=== PATIENT | female | born 1960 | race Caucasian/White ===

== ENCOUNTER → 2022-02-17 09:52 | Outpatient (BNVA) | payer MEDICAID, SELFPAY | PROVIDERS: PCP Family Medicine; Visit Provider Physician Assistant | DX: M06.9 Rheumatoid arthritis, unspecified (principal); M72.0 Palmar fascial fibromatosis [Dupuytren] | CPT/HCPCS: 99202 ==

== ENCOUNTER → 2022-03-04 09:23 | Outpatient (BNVA) | payer MEDICAID, SELFPAY | PROVIDERS: PCP Family Medicine; Visit Provider Orthopaedic Surgery | DX: M72.0 Palmar fascial fibromatosis [Dupuytren] (principal); M06.9 Rheumatoid arthritis, unspecified | CPT/HCPCS: 99202 ==

== ENCOUNTER 2024-06-01 08:33 | Outpatient (AMB) | payer OTHER, MEDICAID, SELFPAY ==
[2024-06-01 08:51] VITALS: BP 116/80; PULSE 62; O2SAT 96; BMI 27.9
--- NOTE | 2024-06-01 08:51 | MHC.PC.OV ---
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 Accompanied by: Self / Same As Patient Allergies carbamazepine Allergy (Severe, Verified 06/01/24 09:24) Hives meperidine [From DEMEROL] Allergy (Unknown, Verified 06/01/24 09:24) VOMITING Penicillins [PENICILLINS] Allergy (Unknown, Verified 06/01/24 09:24) SWELLING Sulfa (Sulfonamide Antibiotics) [SULFA (SULFONAMIDE ANTIBIOTICS)] Allergy (Unknown, Verified 06/01/24 09:24) HIVES varenicline [From CHANTIX] Allergy (Unknown, Verified 06/01/24 09:24) HEADACHES lisinopril Adverse Reaction (Mild, Verified 06/01/24 09:24) Cough Medication List - Last Reconciled 06/01/24 by Zane Michaels MD albuterol sulfate 90 mcg/actuation (ProAir HFA) 1 - 2 puffs inhalation Q4-6H PRN amlodipine 10 mg PO DAILY ascorbic acid (vitamin C) 500 mg PO DAILY aspirin 81 mg PO DAILY betamethasone valerate 0.1% 1 appl topical BID dihydroberberine (Berberine ES-5) 1,200 mg PO DAILY lorazepam 0.5 mg PO BID magnesium glycinate 120 mg PO DAILY metoprolol succinate ER 25 mg PO DAILY Tobacco use date assessed: 06/01/24 Dental Screening Dental Screen Date: 06/01/24 Did you have a dental visit in the last 12 months?: No Did you have a dental problem in the last 6 months where you did not have access to dental care?: No Was dental information given to patient?: No HPI establish care HPI Details Patient comes in today to establish care - she is a new patient to the practice She is transferring over from [facility] as her previous PCP, who she was with for many years, is no longer accepting her health insurance States that she currently feels okay and mainly needs her Lorazepam Rx refilled States that she has been on Lorazepam for many years and has a prescription management agreement with her previous PCP when she will get her Lorazepam prescription monthly and is subjected to random drug screens when requested for Adds that she has other medical conditions including COPD as well as a NSTEMI back in March 2024 although her coronary angiogram did not show any significant coronary disease other than a 30% stenosis of the mid-LAD She denies any headaches or dizziness Denies any chest pains, no increased shortness of breath No nausea/vomiting, no abdominal pain No change in bowel habits noted Patient also brought in copies of labs done at [facility] a couple of months ago for review [facility] Medical History (Updated 06/01/24 @ 20:32 by Zane Michaels MD) Overweight (BMI 25.0-29.9) Primary osteoarthritis involving multiple joints Rheumatoid arthritis Smoker Anxiety Pure hypercholesterolemia COPD (chronic obstructive pulmonary disease) Non-ST elevation (NSTEMI) myocardial infarction Essential hypertension Surgical History (Updated 06/01/24 @ 18:29 by Zane Michaels MD) History of superficial parotidectomy History of tubal ligation Social History Housing: House Patient Tobacco Use Status: Current everyday Tobacco user Cigarettes Per Day: 8 Years Smoked: 30+ e-Cigarette/Vaping Use: Never Used service: No Current occupational status: disabled Current occupation: right hand dominant Cognitive needs: No Hearing needs: No Vision needs: Yes Questionnaire PHQ-9 Over the last 2 weeks, how often have you been bothered by any of the following problems? 1. Little interest or pleasure in doing things: not at all 2. Feeling down, depressed, or hopeless: not at all 3. Trouble falling or staying asleep, or sleeping too much: not at all 4. Feeling tired or having little energy: not at all 5. Poor appetite or overeating: not at all 6. Feeling bad about yourself - or that you are a failure or have let yourself or your family down: not at all 7. Trouble concentrating on things, such as reading the newspaper or watching television: not at all 8. Moving or speaking so slowly that other people could have noticed. Or the opposite - being so fidgety or restless that you have been moving around a lot more than usual: not at all 9. Thoughts that you would be better off or of hurting yourself in some way: not at all Total score: 0 Depression Screening Interpretation: Negative Depression Screening Done: Yes 00222 - PHQ-9 Billing: Yes Source: Developed by Drs. Xu Garcia, Heather Riddle, Rio Sun and colleagues, with an educational anisa from [employer]. Thrive Questionnaire Date Thrive assessed: 06/01/24 I am a: Patient What is your living situation today?: I have a steady place to live Within the past 12 months, did the food you bought not last and you didn't have the money to get more?: Sometimes True Within the past 12 months, did you worry whether your food would run out before you got money to buy more?: Sometimes True Do you have trouble paying for medicines?: No Do you have trouble getting transportation to medical appointments?: No Do you have trouble paying your heating and electricity bill?: No Do you have trouble taking care of your child, family member or friend?: No Do you have trouble with day-to-day activities such as bathing, preparing meals, shopping, managing finances, etc.?: Yes Are you currently unemployed and looking for a job?: I choose not to answer this question Are you interested in more education?: No Please select the resources that you would like help with: None Currently or been in a relationship where the following occur: No concerns reported THRIVE Score: 2 AUDIT C Alcohol Use Questionnaire (AUDIT-C) 1. How often do you have a drink containing alcohol?: Never 3. How often do you have six or more drinks on one occasion?: Never Total Score: 0 Score Reviewed/Action Taken: Yes SUSANA-7 AMB Questionnaire SUSANA-7 Date SUSANA - 7 assessed: 06/01/24 Feeling nervous, anxious, or on edge: 1 = Several days Not being able to stop or control worryin = Not at all Worrying too much about different things: 0 = Not at all Trouble relaxin = Several days Being so restless that it is hard to sit still: 1 = Several days Becoming easily annoyed or irritable: 0 = Not at all Feeling afraid as if something awful might happen: 0 = Not at all Total SUSANA-7 score (0-4 normal; 5-9 mild; 10-14 moderate; 15-21 severe): 3 Source: Developed by Heather PatiñoW. Venkatesh, Rio Sun and colleagues, with an educational anisa from [employer]. Review of Systems Const Denies chills, Denies fatigue, Denies fever(s) and Denies headache(s) ENT Denies dysphagia, Denies dizziness, Denies otalgia, Denies headache(s), Denies neck pain, Denies odynophagia and Denies sore throat Card Denies chest pain, Denies palpitations and Denies dyspnea Resp Denies chest congestion, Denies cough and Denies dyspnea GI Denies abdominal pain, Denies constipation, Denies dysphagia, Denies heartburn, Denies diarrhea, Denies nausea, Denies odynophagia and Denies vomiting Denies difficulty voiding, Denies nocturia and Denies dysuria Musc Reports back pain (over the lower back), Reports arthralgias (involving multiple joints) and Denies neck pain Skin/Breast Denies rash Neuro Denies dizziness and Denies headache(s) Psych Reports anxiety Endo Denies fatigue and Denies palpitations Physical exam (Primary Care) Vital Signs: Last Vital Signs Pulse 62 06/01/24 08:51 BP 116/80 06/01/24 08:51 Pulse Ox 96 06/01/24 08:51 Oxygen Delivery Method Room Air 06/01/24 08:51 BMI result Body Mass Index 27.9 Tobacco/Smoking Status: Tobacco use Status Tobacco use date assessed 06/01/24 06/01/24 09:06 Patient Tobacco Use Status Current everyday Tobacco 06/01/24 09:06 e-Cigarette/Vaping Use Never Used 06/01/24 09:06 PHQ-9: PHQ-9 Score PHQ-9: Total score 0 06/01/24 09:37 Depression Screening Interpretation: Negative Thrive Assessment: Date of Thrive Assessment Date Thrive assessed 06/01/24 06/01/24 09:06 Currently or been in a relationship where the following occur: No concerns reported Const General: no acute distress and alert HENMT Ears: TM's normal bilaterally and EAC's normal Throat: Yes posterior oropharynx normal and Yes tonsils normal (no TP congestion) Neck Neck: Yes supple and No lymphadenopathy Thyroid: Thyroid normal Resp Auscultation: clear to auscultation bilaterally, no rales and no wheezes Cardio Rate: regular rate Rhythm: regular rhythm Heart sounds: no murmurs GI Palpation (GI): Soft to palpation and nontender Auscultation: normal bowel sounds General: Yes no CVA tenderness Back/Spine/Pelvis Back: no CVA tenderness Thoracic/Lumbar Spine: lumbar spinal tenderness Skin Rashes: no rashes Extrem General: Yes no clubbing, cyanosis or edema Coding Level of Care Code New Pt Level 4 (91417) Diagnoses Essential hypertension I10 Pure hypercholesterolemia E78.00 Non-ST elevation (NSTEMI) myocardial infarction I21.4 Chronic obstructive pulmonary disease, unspecified COPD type J44.9 COPD type: unspecified COPD Primary osteoarthritis involving multiple joints M15.0 Rheumatoid arthritis involving hand, unspecified laterality, unspecified whether rheumatoid factor present M06.9 Rheumatoid arthritis location: hand Rheumatoid factor presence: unspecified presence Laterality: unspecified laterality Anxiety F41.9 Smoker F17.200 Overweight (BMI 25.0-29.9) E66.3 Additional Codes PHQ-9 - 79606 - PHQ-9 Billing: Yes ([id number]) Assessment & Plan Assessment & Plan (1) Essential hypertension: Code(s): I10 - Essential (primary) hypertension Category: Medical Plan: Reinforced low sodium diet - goal is systolic BP of 120 to 130 mm or less Continue Amlodipine 10 mg QD and Metoprolol ER 25 mg QD (2) Pure hypercholesterolemia: Code(s): E78.00 - Pure hypercholesterolemia, unspecified Category: Medical Plan: Results of her labs done [facility] a couple of months ago reviewed and discussed with patient - she is advised that her cholesterol levels are elevated Patient states that has declined starting on cholesterol-lowering medications in the past and continues to do so - states that she has read a lot of negative things about the cholesterol-lowering medications and does not wish take any of those She is currently taking OTC Berberine ES 1200 mg daily to help lower her cholesterol levels Reinforced low-cholesterol diet Will recheck her labs and fasting lipids in 3 months for follow-up (3) Non-ST elevation (NSTEMI) myocardial infarction: Code(s): I21.4 - Non-ST elevation (NSTEMI) myocardial infarction Category: Medical Plan: S/P NSTEMI back in March 2024 but coronary angiography done revealed NO significant coronary artery disease except for 30% stenosis of the mid-LAD Continue Aspirin 81 mg QD and Metoprolol ER 25 mg QD Patient has declined being started on cholesterol-lowering medications Follow up with cardiology as scheduled - patient sees Dr. Fraser (4) COPD (chronic obstructive pulmonary disease): Code(s): J44.9 - Chronic obstructive pulmonary disease, unspecified Category: Medical Qualifiers: COPD type: unspecified COPD Qualified Code(s): J44.9 - Chronic obstructive pulmonary disease, unspecified Plan: Patient has Breo Ellipta 100-25 mcg at home but does not use it unless she has to States that she has only been using her Albuterol HFA 1 to 2 inhalations every 6 hours as needed or Duoneb via her nebulizer PRN lately She sees pulmonary for follow up of her COPD - it appears that she is only seeing them once a year (5) Primary osteoarthritis involving multiple joints: Code(s): M15.0 - Primary generalized (osteo)arthritis Category: Medical Plan: Patient reports that she has osteoarthritis of multiple joints, including her hips, knees and lower back States that she takes only OTC Tylenol nowadays when needed (6) Rheumatoid arthritis: Code(s): M06.9 - Rheumatoid arthritis, unspecified Category: Medical Qualifiers: Rheumatoid arthritis location: hand Rheumatoid factor presence: unspecified presence Laterality: unspecified laterality Qualified Code(s): M06.9 - Rheumatoid arthritis, unspecified Plan: She reports (+) Hx of rheumatoid arthritis and recalls being on treatment for her RA in the past but has not been on any medications for the past couple of years now States that she sees Dr. Patrick at [facility] for rheumatology follow up regularly (7) Anxiety: Code(s): F41.9 - Anxiety disorder, unspecified Category: Medical Plan: Continue Lorazepam 0.5 mg BID PRN - Rx refilled today Patient states that she has been splitting her tablets in half lately and takes them only as needed and not BID regularly lately (8) Smoker: Code(s): F17.200 - Nicotine dependence, unspecified, uncomplicated Category: Social Hx Plan: Patient is counseled on smoking cessation - states that she has been actively working on quitting since her MN back in March 2024 States that she used to smoke 1.5 packs a day and is now down to about 8 cigarettes a day (9) Overweight (BMI 25.0-29.9): Code(s): E66.3 - Overweight Category: Medical Plan: Reinforced diet; exercise and weight loss are not practical at this time due to her physical issues and comorbidities Plan Follow up in 3 months Orders: Orders Complete Blood Count Auto Diff 3 Months D64.9 - Anemia, unspecified Lipid Panel 3 Months E78.00 - Pure hypercholesterolemia, unspecified Vitamin D 25-OH Total 3 Months E55.9 - Vitamin D deficiency, unspecified Erythrocyte Sedimentation Rate 3 Months M06.9 - Rheumatoid arthritis, unspecified, M25.50 - Pain in unspecified joint SUZAN Reflex Titer and Pattern 3 Months M06.9 - Rheumatoid arthritis, unspecified, M25.50 - Pain in unspecified joint Comprehensive [place]. Panel Fast 3 Months E78.00 - Pure hypercholesterolemia, unspecified TSH reflex Free T4 3 Months E78.00 - Pure hypercholesterolemia, unspecified UA CC w/rflx Micro + Cult 3 Months R30.0 - Dysuria C Reactive Protein 3 Months M06.9 - Rheumatoid arthritis, unspecified, M25.50 - Pain in unspecified joint Rheumatoid Factor 3 Months M06.9 - Rheumatoid arthritis, unspecified, M25.50 - Pain in unspecified joint Medications: Changed From lorazepam 0.5 mg PO BID PRN To lorazepam 0.5 mg PO BID 28 days PRN 56 tabs 0RF anxiety
--- OUTSIDE RECORDS SUMMARY | 2024-06-01 09:01 | XMS_ITS | Data Portability ---
Author Organization [facility], [facility] Address [address] [place] [address] Care Team Providers Care Dampproofer Name Role Phone STONEY PENG OTHER [phone] MARCIAL NEWSOME Primary Care Provider [facility] YVONNE Braga [employer]yer PANFILO GROSS Vascular Surgeon ROCCO CARR Neurologist LUCILLE KRUSE Client Manager Assessment Encounter Date Assessment Date Assessment LastModified by Organization Details LastModified Time 02/04/2022 02/04/2022 RTC 11 mo for another VF/OCT plaquenil and and CEE 1 yr jmandile Not available 02/13/2022 20:43:07 01/13/2023 01/13/2023 RTC for cee jmandile Not available 16:06:44 01/15/2023 01/15/2023 RTC 11 mo for VF/OCT plaquenil and and CEE in 1 yr (No refraction today) jmandile Not available 02/12/2023 18:16:49 Plan of Treatment Reminders Order Date Submit Date Provider Last Modified By Organization Details Last Modified Time Details Appointments None recorded. Lab drug screen, urine - Time and Date of Last Dose: Lorazepam 0.5MG 03/02/23 @7:00Am 2022 023 [facility], [address] [place], [address], 10:14:01 benzodiazep kamala, quantitativ e confirmatio n, urine - Time and Date of Last Dose: Lorazepam 0.5MG 03/02/23 @7:00Am 2022 023 [facility], [address] [place] [address], [address], 3 17:28:07 drug screen, urine - Time and Date of Last Dose: 08/26/22 at 8:00am 2022 023 [facility], [address] [place] [address], [address], 3 16:31:10 benzodiazep kamala, quantitativ e confirmatio n, urine - Time and Date of Last Dose: 08/26/22 at 8:00am 2022 023 [facility], [address] [place] [address], [address], 3 11:07:55 lipid panel, serum 2022 023 [facility], [address] [place] [address], [address], 3 14:28:41 HbA1c (hemoglobin A1c), blood 2022 023 [facility], [address] [place] [address], [address], 3 10:31:52 BMP, serum or plasma 2022 023 [facility], [address] [place] [address], [address], 3 14:28:40 noninvasive colorectal cancer DNA + occult blood screening, QL, stool 2022 023 [facility] (Cologuard Orders Only), [address], [place], [address], 4 11:09:01 Referral None recorded. Procedures None recorded. Surgeries None recorded. Imaging MAMMO, screening, tomosynthes is, bilateral - 2nd look consult/Yvette g Mammo/US Breast/Guid ed Asp/Breast Bx as clinically indicated. 2022 023 [facility] (Imaging), [address] , [place], [address], 4 13:06:12 LDCT, chest, for lung cancer screening - Please enroll this patient in the LDCT Lung Cancer Screening Program (for ordering, follow up and shared decision making) 2022 023 [email or web address] [facility], [facility] [place], [address], 3 14:57:04 LDCT, chest, for lung cancer screening - current smoker, started age 18, smokes 1/2 ppd, 30+ pack year 2022 023 [email or web address] Not available 3 11:18:50 Medication Orders amlodipine 10 mg tablet 2022 023 [place] [address] [facility], [address] [facility], [place], [address], 4 08:41:00 Patient TargetsNo targets recorded. Patient Instructions Encounter Date Encounter Id Patient Instructions Last Modified By Organization Details Last Modified Time 08/26/2022 [id number] well visit, wome n 50 to 65: care instructions Not available 08/26/2022 11:02:31 deciding about using medicines to quit smoking Not available 08/26/2022 11:02:31 Quitting Tobacco : Care Instructions Not available 08/26/2022 11:02:31 -Shingrix is two vaccines by 2-6 months -It is given at the pharmacy; please go there to receive it - check with the pharmacy about getting the second -Once you have both you are done (it is 90% effective) -The most common side effect is arm redness around the injection site and arm soreness. -You are due for your tetanus shot Not available 08/26/2022 10:26:55 03/02/2023 [id number] -Mindful eating -Repeat labwork in 3 months with follow-up then -Get a list of insurances you can have and check with billing to see if they match -Lung Cancer Screening - you should get a call -Cologuard or colonoscopy - we need a test to actually look for cancer directly, not a stool test for blood Not available 03/02/2023 09:03:23 Reason for Referral None Reported. Results Created Date Observation Date Name Description Value Unit Range Abnormal Flag Note LastModifiedBy Organization Detail LastModifiedTime 08/26/19 24 08/26/2023 COLOG UARD cologuard result Cancel led - Order d not applic able Not Available [facility] (Cologuard Orders Only) [address], [place], [address], 08/26/2023 11:09:01 02/07/20 22 02/06/2022 CBC AND DIFFE RENTI AL WBC 7.40 K/uL 4.00-1 1.00 Not Available [facility] (Outpatient) [address] [place] [address], [address], 02/06/2022 15:51:56 02/07/20 22 02/06/2022 CBC AND DIFFE RENTI AL RBC 4.28 M/uL 3.72-5 .30 Not Available [facility] (Outpatient) [address] [place] [address], [address], 02/06/2022 15:51:56 02/07/20 22 02/06/2022 CBC AND DIFFE RENTI AL HGB 13.2 g/dL 11.4-1 5.9 Not Available [facility] (Outpatient) [address] [place] [address], [address], 02/06/2022 15:51:56 02/07/20 22 02/06/2022 CBC AND DIFFE RENTI AL HCT 39.4 % 34.2-4 6.8 Not Available [facility] (Outpatient) [address] [place] [address], [address], 02/06/2022 15:51:56 02/07/20 22 02/06/2022 CBC AND DIFFE RENTI AL plt 186 K/uL 140-43 0 Not Available [facility] (Outpatient) [address] [place], [address], 02/06/2022 15:51:56 02/07/20 22 02/06/2022 CBC AND DIFFE RENTI AL MCV 92.1 fL 78.0-9 7.0 Not Available [facility] (Outpatient) [address] [place], [address], 02/06/2022 15:51:56 02/07/20 22 02/06/2022 CBC AND DIFFE RENTI AL MCH 30.8 pg 25.0-3 3.0 Not Available [facility] (Outpatient) [address] [place] [address], [address], 02/06/2022 15:51:56 02/07/20 22 02/06/2022 CBC AND DIFFE RENTI AL MCHC 33.5 g/dL 32.0-3 6.0 Not Available [facility] (Outpatient) [address] [place] [address], [address], 02/06/2022 15:51:56 02/07/20 22 02/06/2022 CBC AND DIFFE RENTI AL RDW 13.2 % 11.0-1 6.0 Not Available [facility] (Outpatient) [address] [place] [address], [address], 02/06/2022 15:51:56 02/07/20 22 02/06/2022 CBC AND DIFFE RENTI AL MPV 11.8 fL 8.4-12 .8 Not Available [facility] (Outpatient) [address] [place] [address], [address], 02/06/2022 15:51:56 02/07/20 22 02/06/2022 CBC AND DIFFE RENTI AL diff method Auto Not Available [facility] (Outpatient) [address] [place], [address], 02/06/2022 15:51:56 02/07/20 22 02/06/2022 CBC AND DIFFE RENTI AL neuts 62.7 % 43.0-7 5.0 Not Available [facility] (Outpatient) [address] [place], [address], 02/06/2022 15:51:56 02/07/20 22 02/06/2022 CBC AND DIFFE RENTI AL lymphs 26.1 % 18.2-4 7.4 Not Available [facility] (Outpatient) [address] [place], [address], 02/06/2022 15:51:56 02/07/20 22 02/06/2022 CBC AND DIFFE RENTI AL monos 7.7 % 4.00-1 1.00 Not Available [facility] (Outpatient) [address] [place], [address], 02/06/2022 15:51:56 02/07/20 22 02/06/2022 CBC AND DIFFE RENTI AL eos 2.0 % 0.0-8. 0 Not Available [facility] (Outpatient) [address] [place], [address], 02/06/2022 15:51:56 02/07/20 22 02/06/2022 CBC AND DIFFE RENTI AL basos 0.8 % 0.0-2. 0 Not Available [facility] (Outpatient) [address] [place], [address], 02/06/2022 15:51:56 02/07/20 22 02/06/2022 CBC AND DIFFE RENTI AL granulocytes , immature (%) 0.7 % 0.0-0. 9 Not Available [facility] (Outpatient) [address] [place], [address], 02/06/2022 15:51:56 02/07/20 22 02/06/2022 CBC AND DIFFE RENTI AL absolute neuts 4.64 K/uL 1.80-7 .70 Not Available [facility] (Outpatient) [address] [place], [address], 02/06/2022 15:51:56 02/07/20 22 02/06/2022 CBC AND DIFFE RENTI AL absolute lymphs 1.93 K/uL 1.00-3 .10 Not Available [facility] (Outpatient) [address] [place], [address], 02/06/2022 15:51:56 02/07/20 22 02/06/2022 CBC AND DIFFE RENTI AL absolute monos 0.57 K/uL 0.20-0 .80 Not Available [facility] (Outpatient) [address] [place], [address], 02/06/2022 15:51:56 02/07/20 22 02/06/2022 CBC AND DIFFE RENTI AL absolute eos 0.15 K/uL 0.00-0 .80 Not Available [facility] (Outpatient) [address] [place], [address], 02/06/2022 15:51:56 02/07/20 22 02/06/2022 CBC AND DIFFE RENTI AL absolute basos 0.06 K/uL 0.00-0 .09 Not Available [facility] (Outpatient) [address] [place], [address], 02/06/2022 15:51:56 02/07/20 22 02/06/2022 CBC AND DIFFE RENTI AL granulocytes , immature 0.05 K/uL 0.00-0 .05 Not Available [facility] (Outpatient) [address] [place], [address], 02/06/2022 15:51:56 02/07/20 22 02/06/2022 COMPR EHENS RIA METAB OLIC PANEL sodium 141 mmol/ L 133-14 6 Not Available [facility] (Outpatient) [address] [place], [address], 02/06/2022 16:18:42 02/07/20 22 02/06/2022 COMPR EHENS RIA METAB OLIC PANEL potassium 4.2 mmol/ L 3.3-5. 1 Not Available [facility] (Outpatient) [address] [place], [address], 02/06/2022 16:18:42 02/07/20 22 02/06/2022 COMPR EHENS RIA METAB OLIC PANEL chloride 103 mmol/ L 96-108 Not Available [facility] (Outpatient) [address] [place], [address], 02/06/2022 16:18:42 02/07/20 22 02/06/2022 COMPR EHENS RIA METAB OLIC PANEL CO2 29 mmol/ L 21-35 Not Available [facility] (Outpatient) [address] [place], [address], 02/06/2022 16:18:42 02/07/20 22 02/06/2022 COMPR EHENS RIA METAB OLIC PANEL BUN 12 mg/dL 6-19 Not Available [facility] (Outpatient) [address] [place], [address], 02/06/2022 16:18:42 02/07/20 22 02/06/2022 COMPR EHENS RIA METAB OLIC PANEL creatinine 0.60 mg/dL 0.5-1. 5 Not Available [facility] (Outpatient) [address] [place], [address], 02/06/2022 16:18:42 02/07/20 22 02/06/2022 COMPR EHENS RIA METAB OLIC PANEL glucose 111 mg/dL 70-99 high Not Available [facility] (Outpatient) [address] [place], [address], 02/06/2022 16:18:42 02/07/20 22 02/06/2022 COMPR EHENS RIA METAB OLIC PANEL albumin 4.0 g/dL 3.9-4. 8 Not Available [facility] (Outpatient) [address] [place], [address], 02/06/2022 16:18:42 02/07/20 22 02/06/2022 COMPR EHENS RIA METAB OLIC PANEL total protein 6.8 g/dL 6.5-8. 0 Not Available [facility] (Outpatient) [address] [place], [address], 02/06/2022 16:18:42 02/07/20 22 02/06/2022 COMPR EHENS RIA METAB OLIC PANEL calcium 9.3 mg/dL 8.4-10 .3 Not Available [facility] (Outpatient) [address] [place], [address], 02/06/2022 16:18:42 02/07/20 22 02/06/2022 COMPR EHENS RIA METAB OLIC PANEL alkaline phosphatase 68 U/L 39-117 Not Available [facility] (Outpatient) [address] [place], [address], 02/06/2022 16:18:42 02/07/20 22 02/06/2022 COMPR EHENS RIA METAB OLIC PANEL total bilirubin 0.2 mg/dL 0.0-1. 2 Not Available [facility] (Outpatient) [address] [place], [address], 02/06/2022 16:18:42 02/07/20 22 02/06/2022 COMPR EHENS RIA METAB OLIC PANEL AST 23 U/L 0-37 Not Available [facility] (Outpatient) [address] [place], [address], 02/06/2022 16:18:42 02/07/20 22 02/06/2022 COMPR EHENS RIA METAB OLIC PANEL ALT 14 U/L 0-40 Not Available [facility] (Outpatient) [address] [place], [address], 02/06/2022 16:18:42 02/07/20 22 02/06/2022 COMPR EHENS RIA METAB OLIC PANEL globulin 2.8 g/dL 1-4.8 Not Available [facility] (Outpatient) [address] [place], [address], 02/06/2022 16:18:42 02/07/20 22 02/06/2022 COMPR EHENS RIA METAB OLIC PANEL eGFR 103 mL/mi n/1.7 3m2 >59 Estim ated glome rular filtr ation rate calcu lated using the CKD-E PI refit equat ion. Not Available [facility] (Outpatient) [address] [place], [address], 02/06/2022 16:18:42 02/07/20 22 02/06/2022 COMPR EHENS RIA METAB OLIC PANEL anion gap 13 mmol/ L 10-20 Not Available [facility] (Outpatient) [address] [place], [address], 02/06/2022 16:18:42 02/07/20 22 02/06/2022 C-REMY CTIVE PROTE IN C reactive protein 3.5 mg/L 0.0-4. 0 Not Available [facility] (Outpatient) [address] [place], [address], 02/06/2022 16:18:44 02/07/20 22 02/06/2022 SEDIM ENTAT ION RATE (ESR) ESR 30 mm/h 0-30 Not Available [facility] (Outpatient) [address] [place], [address], 02/06/2022 17:07:03 08/21/19 23 08/20/2022 HGB A1C hemoglobin A1C 5.9 % 4.8-6. 0 Goal: <7% in Patie nts with Diabe katie An A1c betwe en 5.7-6 .4% is ident ified as pre-d iabet es and sugge sts risk for progr essio n to diabe katie Two a1c value s of 6.5% or highe r is consi stent with a diagn osis of diabe katie but may need furth er confi rmati on Not Available [address], [address], 08/20/2022 09:18:03 08/21/19 23 08/20/2022 HGB A1C estimated average glucose 122.6 mg/dL Not Available [address], [address], 08/20/2022 09:18:03 08/21/19 23 08/20/2022 BASIC METAB OLIC PANEL glucose 96 mg/dL 70-100 Not Available [address], [address], 08/20/2022 10:30:51 08/21/19 23 08/20/2022 BASIC METAB OLIC PANEL BUN 8 mg/dL 7-18 Not Available [address], [address], 08/20/2022 10:30:51 08/21/19 23 08/20/2022 BASIC METAB OLIC PANEL creatinine 0.7 mg/dL 0.8-1. 3 low Not Available [address], [address], 08/20/2022 10:30:51 08/21/19 23 08/20/2022 BASIC METAB OLIC PANEL B/C 11.4 ratio Not Available [address], [address], 08/20/2022 10:30:51 08/21/19 23 08/20/2022 BASIC METAB OLIC PANEL GFR >=60ML /MIN mL/mi n normal >=60m L/min - Pamela l or midly reduc ed <60mL /min- Decre ased kidne y funct ion <15mL /min - Kidne y failu re [facility] calcu lates estim ated Glome rular Filtr ation Rate (eGFR ) using the Chron ic Kidne y Disea se Epide miolo gy Colla borat ion (CKD- EPI) Equat ion (Carlos r et. al 2020) as recom tristin d by the Natio nal Kidne y Found ation . eGFR is based on age, serum creat inine , and sex. CKD-E PI does not calcu late eGFR by race, does not apply to child aris (age <18 years ), and shoul d not be used in pregn rodrigue. Not Available [address], [address], 08/20/2022 10:30:51 08/21/19 23 08/20/2022 BASIC METAB OLIC PANEL sodium 139 mmol/ L 136-14 5 Not Available [address], [address], 08/20/2022 10:30:51 08/21/19 23 08/20/2022 BASIC METAB OLIC PANEL potassium 4.4 mmol/ L 3.5-5. 1 Not Available [address], [address], 08/20/2022 10:30:51 08/21/19 23 08/20/2022 BASIC METAB OLIC PANEL chloride 101 mmol/ L 96-107 Not Available [address], [address], 08/20/2022 10:30:51 08/21/19 23 08/20/2022 BASIC METAB OLIC PANEL anion gap 6.2 5.0-15 .0 Not Available [address], [address], 08/20/2022 10:30:51 08/21/19 23 08/20/2022 BASIC METAB OLIC PANEL CO2 32 mmol/ L 21-32 Not Available [address], [address], 08/20/2022 10:30:51 08/21/19 23 08/20/2022 BASIC METAB OLIC PANEL calcium 9.0 mg/dL 8.5-10 .3 Not Available [address], [address], 08/20/2022 10:30:51 08/21/19 23 08/20/2022 LIPID PANEL cholesterol 205 mg/dL <200 mg/dl Heladio able 200-2 39 mg/dl Borde rline High >240 mg/dl High Not Available [address], [address], 08/20/2022 10:30:53 08/21/19 23 08/20/2022 LIPID PANEL triglyceride s 132 mg/dL <150 mg/dL Pamela l 150-1 99 mg/dL Borde rline High 200-4 99 mg/dL High >500 mg/dL Very High Not Available [address], [address], 08/20/2022 10:30:53 08/21/19 23 08/20/2022 LIPID PANEL direct HDL 47 mg/dL <40 mg/dl - Major Risk for CHD >60 mg/dl - Negat ria Risk for CHD Not Available [address], [address], 08/20/2022 10:30:53 08/21/19 23 08/20/2022 LDL - CALCU LATED LDL - calculated 131.6 RISK CATEG ORY LDL GOAL _ CHD or CHD Risk Equiv alent s <100 mg/dl (10-y ear risk >20%) 2+ Risk Facto rs <130 mg/dl (10-y ear risk <= 20%) 0-1 Risk Facto r??? <160 mg/dl ??? Almos t all peopl e with 0-1 risk facto r have a 10 year risk <10%, thus 10 year risk asses ment in peopl e with 0-1 risk facto r is not yanelis medina. Not Available [address], [address], 08/20/2022 10:30:55 08/27/19 23 08/27/2022 DRUG SCREE N-8, URINE , WITH CONFI RMATI ON GC/MS amphetamine NEG. negati ve Not Available [address], [address], 08/27/2022 16:31:10 08/27/19 23 08/27/2022 DRUG SCREE N-8, URINE , WITH CONFI RMATI ON GC/MS barbiturates NEG. negati ve Not Available [address], [address], 08/27/2022 16:31:10 08/27/19 23 08/27/2022 DRUG SCREE N-8, URINE , WITH CONFI RMATI ON GC/MS benzodiazepi ne NEG. negati ve Not Available [address], [address], 08/27/2022 16:31:10 08/27/19 23 08/27/2022 DRUG SCREE N-8, URINE , WITH CONFI RMATI ON GC/MS cocaine NEG. negati ve Not Available [address], [address], 08/27/2022 16:31:10 08/27/19 23 08/27/2022 DRUG SCREE N-8, URINE , WITH CONFI RMATI ON GC/MS opiates NEG. negati ve Not Available [address], [address], 08/27/2022 16:31:10 08/27/19 23 08/27/2022 DRUG SCREE N-8, URINE , WITH CONFI RMATI ON GC/MS methadone NEG. negati ve Not Available [address], [address], 08/27/2022 16:31:10 08/27/19 23 08/27/2022 DRUG SCREE N-8, URINE , WITH CONFI RMATI ON GC/MS fentanyl NEG. negati ve Syva EMIT II Limit s of Detec tion (cutt -off value s) Trey Expan d: Amphe tamin es: 1000 ng/ml Opiat es: 300 ng/ml Molly tuate s: 200 ng/ml Oxyco done 100 ng/ml Benzo diaze pines : 200 ng/ml Metha done 300 ng/ml Cocai ne: 300 ng/ml Fenta nyl 1 ng/ml Not Available [address], [address], 08/27/2022 16:31:10 08/27/19 23 08/27/2022 DRUG SCREE N-8, URINE , WITH CONFI RMATI ON GC/MS oxycodone NEG. negati ve Not Available [address], [address], 08/27/2022 16:31:10 08/27/19 23 08/30/2022 DRUG TOX MONIT ORING BENZO DIAZE PINES , QN, U alphahydroxy alprazolam NEGATI VE NG/mL <25 See Note 1 Not Available [facility] [address], [address], 08/30/2022 11:07:55 08/27/19 23 08/30/2022 DRUG TOX MONIT ORING BENZO DIAZE PINES , QN, U alphahydroxy midazolam NEGATI VE NG/mL <50 See Note 1 Not Available [facility] [address], [address], 08/30/2022 11:07:55 08/27/19 23 08/30/2022 DRUG TOX MONIT ORING BENZO DIAZE PINES , QN, U alphahydroxy triazolam NEGATI VE NG/mL <50 See Note 1 Not Available [facility] [address], [place], [address], 08/30/2022 11:07:55 08/27/19 23 08/30/2022 DRUG TOX MONIT ORING BENZO DIAZE PINES , QN, U aminoclonaze serena NEGATI VE NG/mL <25 See Note 1 Not Available [facility] [address], [place], [address], 08/30/2022 11:07:55 08/27/19 23 08/30/2022 DRUG TOX MONIT ORING BENZO DIAZE PINES , QN, U hydroxyethyl flurazepam NEGATI VE NG/mL <50 See Note 1 Not Available [facility] [address], [place], [address], 08/30/2022 11:07:55 08/27/19 23 08/30/2022 DRUG TOX MONIT ORING BENZO DIAZE PINES , QN, U lorazepam 98 NG/mL <50 high See Note 1 Not Available [facility] [address], [place], [address], 08/30/2022 11:07:55 08/27/19 23 08/30/2022 DRUG TOX MONIT ORING BENZO DIAZE PINES , QN, U nordiazepam NEGATI VE NG/mL <50 See Note 1 Not Available [facility] [address], [place], [address], 08/30/2022 11:07:55 08/27/19 23 08/30/2022 DRUG TOX MONIT ORING BENZO DIAZE PINES , QN, U oxazepam NEGATI VE NG/mL <50 See Note 1 Not Available [facility] [address], [place], [address], 08/30/2022 11:07:55 08/27/19 23 08/30/2022 DRUG TOX MONIT ORING BENZO DIAZE PINES , QN, U temazepam NEGATI VE NG/mL <50 See Note 1 Not Available [facility] [address], [place], [address], 08/30/2022 11:07:55 08/27/19 23 08/30/2022 DRUG TOX MONIT ORING BENZO DIAZE PINES , QN, U Unknown Analyte See Note 2 Note 1 This test was devel oped and its jonn tical perfo rmanc e milka cteri stics have been deter mined by [facility]. It has not been clear ed or appro shaun by the FDA. This assay has been valid ated pursu ant to the CLIA regul ation s and is used for clini ashley purpo ses. Note 2 This drug testi ng is for medic al treat ment only. Jonn sis was perfo rmed as non-f orens ic testi ng and these resul ts shoul d be used only by [facility] to rende r diagn osis or treat ment, or to monit or progr ess of medic al condi tions . For sundeepluke weaver with inter preti ng these drug resul ts, pleas e conta ct a [facility] Toxic ology Speci alist : 1-877 [phone] X TOX ( [phone] ), M-F, 8am-6 pm EST. Not Available [facility] [address], [place], [address], 08/30/2022 11:07:55 10/10/19 23 10/09/2022 CBC AND DIFFE RENTI AL WBC 8.46 K/uL 4.00-1 1.00 Not Available [facility] (Outpatient) [address] [place] [address], [address], 10/09/2022 15:48:23 10/10/19 23 10/09/2022 CBC AND DIFFE RENTI AL RBC 4.44 M/uL 3.72-5 .30 Not Available [facility] (Outpatient) [address] [place], [address], 10/09/2022 15:48:23 10/10/19 23 10/09/2022 CBC AND DIFFE RENTI AL HGB 13.0 g/dL 11.4-1 5.9 Not Available [facility] (Outpatient) [address] [place], [address], 10/09/2022 15:48:23 10/10/19 23 10/09/2022 CBC AND DIFFE RENTI AL HCT 39.4 % 34.2-4 6.8 Not Available [facility] (Outpatient) [address] [place], [address], 10/09/2022 15:48:23 10/10/19 23 10/09/2022 CBC AND DIFFE RENTI AL plt 188 K/uL 140-43 0 Not Available [facility] (Outpatient) [address] [place], [address], 10/09/2022 15:48:23 10/10/19 23 10/09/2022 CBC AND DIFFE RENTI AL MCV 88.7 fL 78.0-9 7.0 Not Available [facility] (Outpatient) [address] [place], [address], 10/09/2022 15:48:23 10/10/19 23 10/09/2022 CBC AND DIFFE RENTI AL MCH 29.3 pg 25.0-3 3.0 Not Available [facility] (Outpatient) [address] [place], [address], 10/09/2022 15:48:23 10/10/19 23 10/09/2022 CBC AND DIFFE RENTI AL MCHC 33.0 g/dL 32.0-3 6.0 Not Available [facility] (Outpatient) [address] [place], [address], 10/09/2022 15:48:23 10/10/19 23 10/09/2022 CBC AND DIFFE RENTI AL RDW 13.4 % 11.0-1 6.0 Not Available [facility] (Outpatient) [address] [place], [address], 10/09/2022 15:48:23 10/10/19 23 10/09/2022 CBC AND DIFFE RENTI AL MPV 11.7 fL 8.4-12 .8 Not Available [facility] (Outpatient) [address] [place], [address], 10/09/2022 15:48:23 10/10/19 23 10/09/2022 CBC AND DIFFE RENTI AL diff method Auto Not Available [facility] (Outpatient) [address] [place], [address], 10/09/2022 15:48:23 10/10/19 23 10/09/2022 CBC AND DIFFE RENTI AL neuts 59.6 % 43.0-7 5.0 Not Available [facility] (Outpatient) [address] [place], [address], 10/09/2022 15:48:23 10/10/19 23 10/09/2022 CBC AND DIFFE RENTI AL lymphs 27.3 % 18.2-4 7.4 Not Available [facility] (Outpatient) [address] [place], [address], 10/09/2022 15:48:23 10/10/19 23 10/09/2022 CBC AND DIFFE RENTI AL monos 9.9 % 4.00-1 1.00 Not Available [facility] (Outpatient) [address] [place], [address], 10/09/2022 15:48:23 10/10/19 23 10/09/2022 CBC AND DIFFE RENTI AL eos 2.0 % 0.0-8. 0 Not Available [facility] (Outpatient) [address] [place], [address], 10/09/2022 15:48:23 10/10/19 23 10/09/2022 CBC AND DIFFE RENTI AL basos 0.7 % 0.0-2. 0 Not Available [facility] (Outpatient) [address] [place], [address], 10/09/2022 15:48:23 10/10/1910/09/2022 CBC AND DIFFE RENTI AL granulocytes , immature (%) 0.5 % 0.0-0. 9 Not Available [facility] (Outpatient) [address] [place], [address], 10/09/2022 15:48:23 10/10/19 23 10/09/2022 CBC AND DIFFE RENTI AL absolute neuts 5.04 K/uL 1.80-7 .70 Not Available [facility] (Outpatient) [address] [place], [address], 10/09/2022 15:48:23 10/10/1910/09/2022 CBC AND DIFFE RENTI AL absolute lymphs 2.31 K/uL 1.00-3 .10 Not Available [facility] (Outpatient) [address] [place], [address], 10/09/2022 15:48:23 10/10/19 23 10/09/2022 CBC AND DIFFE RENTI AL absolute monos 0.84 K/uL 0.20-0 .80 high Not Available [facility] (Outpatient) [address] [place], [address], 10/09/2022 15:48:23 10/10/19 23 10/09/2022 CBC AND DIFFE RENTI AL absolute eos 0.17 K/uL 0.00-0 .80 Not Available [facility] (Outpatient) [address] [place], [address], 10/09/2022 15:48:23 10/10/19 23 10/09/2022 CBC AND DIFFE RENTI AL absolute basos 0.06 K/uL 0.00-0 .09 Not Available [facility] (Outpatient) [address] [place], [address], 10/09/2022 15:48:23 10/10/19 23 10/09/2022 CBC AND DIFFE RENTI AL granulocytes , immature 0.04 K/uL 0.00-0 .05 Not Available [facility] (Outpatient) [address] [place], [address], 10/09/2022 15:48:23 10/10/19 23 10/09/2022 SEDIM ENTAT ION RATE (ESR) ESR 44 mm/h 0-30 high Not Available [facility] (Outpatient) [address] [place], [address], 10/09/2022 18:55:48 10/10/19 23 10/09/2022 COMPR EHENS RIA METAB OLIC PANEL sodium 136 mmol/ L 133-14 6 Not Available [facility] (Outpatient) [address] [place], [address], 10/09/2022 19:13:40 10/10/19 23 10/09/2022 COMPR EHENS RIA METAB OLIC PANEL potassium 4.4 mmol/ L 3.3-5. 1 Not Available [facility] (Outpatient) [address] [place], [address], 10/09/2022 19:13:40 10/10/19 23 10/09/2022 COMPR EHENS RIA METAB OLIC PANEL chloride 98 mmol/ L 96-108 Not Available [facility] (Outpatient) [address] [place], [address], 10/09/2022 19:13:40 10/10/19 23 10/09/2022 COMPR EHENS RIA METAB OLIC PANEL CO2 29 mmol/ L 21-35 Not Available [facility] (Outpatient) [address] [place], [address], 10/09/2022 19:13:40 10/10/19 23 10/09/2022 COMPR EHENS RIA METAB OLIC PANEL BUN 10 mg/dL 6-19 Not Available [facility] (Outpatient) [address] [place], [address], 10/09/2022 19:13:40 10/10/19 23 10/09/2022 COMPR EHENS RIA METAB OLIC PANEL creatinine 0.60 mg/dL 0.5-1. 5 Not Available [facility] (Outpatient) [address] [place], [address], 10/09/2022 19:13:40 10/10/19 23 10/09/2022 COMPR EHENS RIA METAB OLIC PANEL glucose 95 mg/dL 70-99 Not Available [facility] (Outpatient) [address] [place], [address], 10/09/2022 19:13:40 10/10/19 23 10/09/2022 COMPR EHENS RIA METAB OLIC PANEL albumin 3.9 g/dL 3.9-4. 8 Not Available [facility] (Outpatient) [address] [place], [address], 10/09/2022 19:13:40 10/10/19 23 10/09/2022 COMPR EHENS RIA METAB OLIC PANEL total protein 7.1 g/dL 6.5-8. 0 Not Available [facility] (Outpatient) [address] [place], [address], 10/09/2022 19:13:40 10/10/19 23 10/09/2022 COMPR EHENS RIA METAB OLIC PANEL calcium 9.3 mg/dL 8.4-10 .3 Not Available [facility] (Outpatient) [address] [place], [address], 10/09/2022 19:13:40 10/10/19 23 10/09/2022 COMPR EHENS RIA METAB OLIC PANEL alkaline phosphatase 73 U/L 39-117 Not Available [facility] (Outpatient) [address] [place], [address], 10/09/2022 19:13:40 10/10/19 23 10/09/2022 COMPR EHENS RIA METAB OLIC PANEL total bilirubin 0.3 mg/dL 0.0-1. 2 Not Available [facility] (Outpatient) [address] [place], [address], 10/09/2022 19:13:40 10/10/19 23 10/09/2022 COMPR EHENS RIA METAB OLIC PANEL AST 27 U/L 0-37 Not Available [facility] (Outpatient) [address] [place], [address], 10/09/2022 19:13:40 10/10/19 23 10/09/2022 COMPR EHENS RIA METAB OLIC PANEL ALT 19 U/L 0-40 Not Available [facility] (Outpatient) [address] [place], [address], 10/09/2022 19:13:40 10/10/19 23 10/09/2022 COMPR EHENS RIA METAB OLIC PANEL globulin 3.2 g/dL 1-4.8 Not Available [facility] (Outpatient) [address] [place], [address], 10/09/2022 19:13:40 10/10/19 23 10/09/2022 COMPR EHENS RIA METAB OLIC PANEL eGFR 103 mL/mi n/1.7 3m2 >59 Estim ated glome rular filtr ation rate calcu lated using the CKD-E PI refit equat ion. Not Available [facility] (Outpatient) [address] [place], [address], 10/09/2022 19:13:40 10/10/19 23 10/09/2022 COMPR EHENS RIA METAB OLIC PANEL anion gap 13 mmol/ L 10-20 Not Available [facility] (Outpatient) [address] [place], [address], 10/09/2022 19:13:40 10/10/19 23 10/09/2022 C-REMY CTIVE PROTE IN C reactive protein 4.8 mg/L 0.0-4. 0 high Not Available [facility] (Outpatient) [address] [place], [address], 10/09/2022 19:13:42 02/18/20 23 02/17/2023 COMPR EHENS RIA METAB OLIC PANEL sodium 137 mmol/ L 133-14 6 Not Available [facility] (Outpatient) [address] [place], [address], 02/17/2023 15:30:47 02/18/20 23 02/17/2023 COMPR EHENS RIA METAB OLIC PANEL potassium 4.2 mmol/ L 3.3-5. 1 Not Available [facility] (Outpatient) [address] [place], [address], 02/17/2023 15:30:47 02/18/20 23 02/17/2023 COMPR EHENS RIA METAB OLIC PANEL chloride 100 mmol/ L 96-108 Not Available [facility] (Outpatient) [address] [place], [address], 02/17/2023 15:30:47 02/18/20 23 02/17/2023 COMPR EHENS RIA METAB OLIC PANEL CO2 29 mmol/ L 21-35 Not Available [facility] (Outpatient) [address] [place], [address], 02/17/2023 15:30:47 02/18/20 23 02/17/2023 COMPR EHENS RIA METAB OLIC PANEL BUN 11 mg/dL 6-19 Not Available [facility] (Outpatient) [address] [place], [address], 02/17/2023 15:30:47 02/18/20 23 02/17/2023 COMPR EHENS RIA METAB OLIC PANEL creatinine 0.60 mg/dL 0.5-1. 5 Not Available [facility] (Outpatient) [address] [place], [address], 02/17/2023 15:30:47 02/18/20 23 02/17/2023 COMPR EHENS RIA METAB OLIC PANEL glucose 107 mg/dL 70-99 high Not Available [facility] (Outpatient) [address] [place], [address], 02/17/2023 15:30:47 02/18/20 23 02/17/2023 COMPR EHENS RIA METAB OLIC PANEL albumin 4.0 g/dL 3.9-4. 8 Not Available [facility] (Outpatient) [address] [place], [address], 02/17/2023 15:30:47 02/18/20 23 02/17/2023 COMPR EHENS RIA METAB OLIC PANEL total protein 7.1 g/dL 6.5-8. 0 Not Available [facility] (Outpatient) [address] [place], [address], 02/17/2023 15:30:47 02/18/20 23 02/17/2023 COMPR EHENS RIA METAB OLIC PANEL calcium 9.3 mg/dL 8.4-10 .3 Not Available [facility] (Outpatient) [address] [place], [address], 02/17/2023 15:30:47 02/18/20 23 02/17/2023 COMPR EHENS RIA METAB OLIC PANEL alkaline phosphatase 84 U/L 39-117 Not Available [facility] (Outpatient) [address] [place], [address], 02/17/2023 15:30:47 02/18/20 23 02/17/2023 COMPR EHENS RIA METAB OLIC PANEL total bilirubin 0.3 mg/dL 0.0-1. 2 Not Available [facility] (Outpatient) [address] [place], [address], 02/17/2023 15:30:47 02/18/20 23 02/17/2023 COMPR EHENS RIA METAB OLIC PANEL AST 23 U/L 0-37 Not Available [facility] (Outpatient) [address] [place], [address], 02/17/2023 15:30:47 02/18/20 23 02/17/2023 COMPR EHENS RIA METAB OLIC PANEL ALT 15 U/L 0-40 Not Available [facility] (Outpatient) [address] [place], [address], 02/17/2023 15:30:47 02/18/20 23 02/17/2023 COMPR EHENS RIA METAB OLIC PANEL globulin 3.1 g/dL 1-4.8 Not Available [facility] (Outpatient) [address] [place], [address], 02/17/2023 15:30:47 02/18/20 23 02/17/2023 COMPR EHENS RIA METAB OLIC PANEL eGFR 103 mL/mi n/1.7 3m2 >59 Estim ated glome rular filtr ation rate calcu lated using the CKD-E PI refit equat ion. Not Available [facility] (Outpatient) [address] [place], [address], 02/17/2023 15:30:47 02/18/20 23 02/17/2023 COMPR EHENS RIA METAB OLIC PANEL anion gap 12 mmol/ L 10-20 Not Available [facility] (Outpatient) [address] [place], [address], 02/17/2023 15:30:47 02/18/20 23 02/17/2023 C-REMY CTIVE PROTE IN C reactive protein 8.1 mg/L 0.0-4. 0 high Not Available [facility] (Outpatient) [address] [place], [address], 02/17/2023 15:30:49 02/18/20 23 02/17/2023 CBC AND DIFFE RENTI AL WBC 7.70 K/uL 4.00-1 1.00 Not Available [facility] (Outpatient) [address] [place], [address], 02/17/2023 15:48:31 02/18/20 23 02/17/2023 CBC AND DIFFE RENTI AL RBC 4.56 M/uL 3.72-5 .30 Not Available [facility] (Outpatient) [address] [place], [address], 02/17/2023 15:48:31 02/18/20 23 02/17/2023 CBC AND DIFFE RENTI AL HGB 13.2 g/dL 11.4-1 5.9 Not Available [facility] (Outpatient) [address] [place], [address], 02/17/2023 15:48:31 02/18/20 23 02/17/2023 CBC AND DIFFE RENTI AL HCT 41.8 % 34.2-4 6.8 Not Available [facility] (Outpatient) [address] [place], [address], 02/17/2023 15:48:31 02/18/20 23 02/17/2023 CBC AND DIFFE RENTI AL plt 207 K/uL 140-43 0 Not Available [facility] (Outpatient) [address] [place], [address], 02/17/2023 15:48:31 02/18/20 23 02/17/2023 CBC AND DIFFE RENTI AL MCV 91.7 fL 78.0-9 7.0 Not Available [facility] (Outpatient) [address] [place], [address], 02/17/2023 15:48:31 02/18/20 23 02/17/2023 CBC AND DIFFE RENTI AL MCH 28.9 pg 25.0-3 3.0 Not Available [facility] (Outpatient) [address] [place], [address], 02/17/2023 15:48:31 02/18/20 23 02/17/2023 CBC AND DIFFE RENTI AL MCHC 31.6 g/dL 32.0-3 6.0 low Not Available [facility] (Outpatient) [address] [place], [address], 02/17/2023 15:48:31 02/18/20 23 02/17/2023 CBC AND DIFFE RENTI AL RDW 13.7 % 11.0-1 6.0 Not Available [facility] (Outpatient) [address] [place], [address], 02/17/2023 15:48:31 02/18/20 23 02/17/2023 CBC AND DIFFE RENTI AL MPV 11.4 fL 8.4-12 .8 Not Available [facility] (Outpatient) [address] [place], [address], 02/17/2023 15:48:31 02/18/20 23 02/17/2023 CBC AND DIFFE RENTI AL diff method Auto Not Available [facility] (Outpatient) [address] [place], [address], 02/17/2023 15:48:31 02/18/20 23 02/17/2023 CBC AND DIFFE RENTI AL neuts 61.8 % 43.0-7 5.0 Not Available [facility] (Outpatient) [address] [place], [address], 02/17/2023 15:48:31 02/18/20 23 02/17/2023 CBC AND DIFFE RENTI AL lymphs 27.0 % 18.2-4 7.4 Not Available [facility] (Outpatient) [address] [place], [address], 02/17/2023 15:48:31 02/18/20 23 02/17/2023 CBC AND DIFFE RENTI AL monos 8.1 % 4.00-1 1.00 Not Available [facility] (Outpatient) [address] [place], [address], 02/17/2023 15:48:31 02/18/20 23 02/17/2023 CBC AND DIFFE RENTI AL eos 1.7 % 0.0-8. 0 Not Available [facility] (Outpatient) [address] [place], [address], 02/17/2023 15:48:31 02/18/20 23 02/17/2023 CBC AND DIFFE RENTI AL basos 0.8 % 0.0-2. 0 Not Available [facility] (Outpatient) [address] [place], [address], 02/17/2023 15:48:31 02/18/20 23 02/17/2023 CBC AND DIFFE RENTI AL granulocytes , immature (%) 0.6 % 0.0-0. 9 Not Available [facility] (Outpatient) [address] [place], [address], 02/17/2023 15:48:31 02/18/20 23 02/17/2023 CBC AND DIFFE RENTI AL absolute neuts 4.76 K/uL 1.80-7 .70 Not Available [facility] (Outpatient) [address] [place], [address], 02/17/2023 15:48:31 02/18/20 23 02/17/2023 CBC AND DIFFE RENTI AL absolute lymphs 2.08 K/uL 1.00-3 .10 Not Available [facility] (Outpatient) [address] [place], [address], 02/17/2023 15:48:31 02/18/20 23 02/17/2023 CBC AND DIFFE RENTI AL absolute monos 0.62 K/uL 0.20-0 .80 Not Available [facility] (Outpatient) [address] [place], [address], 02/17/2023 15:48:31 02/18/20 23 02/17/2023 CBC AND DIFFE RENTI AL absolute eos 0.13 K/uL 0.00-0 .80 Not Available [facility] (Outpatient) [address] [place], [address], 02/17/2023 15:48:31 02/18/20 23 02/17/2023 CBC AND DIFFE RENTI AL absolute basos 0.06 K/uL 0.00-0 .09 Not Available [facility] (Outpatient) [address] [place], [address], 02/17/2023 15:48:31 02/18/20 23 02/17/2023 CBC AND DIFFE RENTI AL granulocytes , immature 0.05 K/uL 0.00-0 .05 Not Available [facility] (Outpatient) [address] [place], [address], 02/17/2023 15:48:31 02/18/20 23 02/17/2023 SEDIM ENTAT ION RATE (ESR) ESR 23 mm/h 0-30 Not Available [facility] (Outpatient) [address] [place], [address], 02/17/2023 17:23:48 02/23/20 23 02/22/2023 HGB A1C hemoglobin A1C 6.0 % 4.8-6. 0 Goal: <7% in Patie nts with Diabe katie An A1c betwe en 5.7-6 .4% is ident ified as pre-d iabet es and sugge sts risk for progr essio n to diabe katie Two a1c value s of 6.5% or highe r is consi stent with a diagn osis of diabe katie but may need furth er confi rmati on Not Available [address], [address], 02/22/2023 10:31:52 02/23/20 23 02/22/2023 HGB A1C estimated average glucose 125.5 mg/dL Not Available [address], [address], 02/22/2023 10:31:52 02/23/20 23 02/22/2023 BASIC METAB OLIC PANEL glucose 102 mg/dL 70-100 high Not Available [address], [address], 02/22/2023 14:28:40 02/23/20 23 02/22/2023 BASIC METAB OLIC PANEL BUN 8 mg/dL 7-18 Not Available [address], [address], 02/22/2023 14:28:40 02/23/20 23 02/22/2023 BASIC METAB OLIC PANEL creatinine 0.7 mg/dL 0.8-1. 3 low Not Available [address], [address], 02/22/2023 14:28:40 02/23/20 23 02/22/2023 BASIC METAB OLIC PANEL B/C 11.4 ratio Not Available [address], [address], 02/22/2023 14:28:40 02/23/20 23 02/22/2023 BASIC METAB OLIC PANEL GFR >=60ML /MIN mL/mi n normal >=60m L/min - Pamela l or midly reduc ed <60mL /min- Decre ased kidne y funct ion <15mL /min - Kidne y failu re [facility] calcu lates estim ated Glome rular Filtr ation Rate (eGFR ) using the Chron ic Kidne y Disea se Epide miolo gy Colla borat ion (CKD- EPI) Equat ion (Carlos montano et. al 2020) as recom tristin d by the Natio nal Kidne y Found ation . eGFR is based on age, serum creat inine , and sex. CKD-E PI does not calcu late eGFR by race, does not apply to child aris (age <18 years ), and shoul d not be used in pregn rodrigue. Not Available [address], [address], 02/22/2023 14:28:40 02/23/20 23 02/22/2023 BASIC METAB OLIC PANEL sodium 141 mmol/ L 136-14 5 Not Available [address], [address], 02/22/2023 14:28:40 02/23/20 23 02/22/2023 BASIC METAB OLIC PANEL potassium 4.3 mmol/ L 3.5-5. 1 Not Available [address], [address], 02/22/2023 14:28:40 02/23/20 23 02/22/2023 BASIC METAB OLIC PANEL chloride 102 mmol/ L 96-107 Not Available [address], [address], 02/22/2023 14:28:40 02/23/20 23 02/22/2023 BASIC METAB OLIC PANEL anion gap 9.3 5.0-15 .0 Not Available [address], [address], 02/22/2023 14:28:40 02/23/20 23 02/22/2023 BASIC METAB OLIC PANEL CO2 30 mmol/ L 21-32 Not Available [address], [address], 02/22/2023 14:28:40 02/23/20 23 02/22/2023 BASIC METAB OLIC PANEL calcium 8.8 mg/dL 8.5-10 .3 Not Available [address], [address], 02/22/2023 14:28:40 02/23/20 23 02/22/2023 LIPID PANEL cholesterol 218 mg/dL <200 mg/dl Heladio able 200-2 39 mg/dl Borde rline High >240 mg/dl High Not Available [address], [address], 02/22/2023 14:28:41 02/23/20 23 02/22/2023 LIPID PANEL triglyceride s 93 mg/dL <150 mg/dL Pamela l 150-1 99 mg/dL Borde rline High 200-4 99 mg/dL High >500 mg/dL Very High Not Available [address], [address], 02/22/2023 14:28:41 02/23/20 23 02/22/2023 LIPID PANEL direct HDL 50 mg/dL <40 mg/dl - Major Risk for CHD >60 mg/dl - Negat ria Risk for CHD Not Available [address], [address], 02/22/2023 14:28:41 02/23/20 23 02/22/2023 LDL - CALCU LATED LDL - calculated 149.4 RISK CATEG ORY LDL GOAL _ CHD or CHD Risk Equiv alent s <100 mg/dl (10-y ear risk >20%) 2+ Risk Facto rs <130 mg/dl (10-y ear risk <= 20%) 0-1 Risk Facto r??? <160 mg/dl ??? Almos t all peopl e with 0-1 risk facto r have a 10 year risk <10%, thus 10 year risk asses ment in peopl e with 0-1 risk facto r is not necsalena medina. Not Available [address], [address], 02/22/2023 14:28:43 03/02/20 23 03/04/2023 DRUG SCREE N-8, URINE , WITH CONFI RMATI ON GC/MS amphetamine NEG. negati ve Not Available [address], [address], 03/04/2023 10:14:01 03/02/20 23 03/04/2023 DRUG SCREE N-8, URINE , WITH CONFI RMATI ON GC/MS barbiturates NEG. negati ve Not Available [address], [address], 03/04/2023 10:14:01 03/02/20 23 03/04/2023 DRUG SCREE N-8, URINE , WITH CONFI RMATI ON GC/MS benzodiazepi ne NEG. negati ve Not Available [address], [address], 03/04/2023 10:14:01 03/02/20 23 03/04/2023 DRUG SCREE N-8, URINE , WITH CONFI RMATI ON GC/MS cocaine NEG. negati ve Not Available [address], [address], 03/04/2023 10:14:01 03/02/20 23 03/04/2023 DRUG SCREE N-8, URINE , WITH CONFI RMATI ON GC/MS opiates NEG. negati ve Not Available [address], [address], 03/04/2023 10:14:01 03/02/20 23 03/04/2023 DRUG SCREE N-8, URINE , WITH CONFI RMATI ON GC/MS methadone NEG. negati ve Not Available [address], [address], 03/04/2023 10:14:01 03/02/20 23 03/04/2023 DRUG SCREE N-8, URINE , WITH CONFI RMATI ON GC/MS fentanyl NEG. negati ve Syva EMIT II Limit s of Detec tion (cutt -off value s) [place] Expan d: Amphe tamin es: 1000 ng/ml Opiat es: 300 ng/ml Molly tuate s: 200 ng/ml Oxyco done 100 ng/ml Benzo diaze pines : 200 ng/ml Metha done 300 ng/ml Cocai ne: 300 ng/ml Fenta nyl 1 ng/ml Not Available [address], [address], 03/04/2023 10:14:01 03/02/20 23 03/04/2023 DRUG SCREE N-8, URINE , WITH CONFI RMATI ON GC/MS oxycodone NEG. negati ve Not Available [address], [address], 03/04/2023 10:14:01 03/02/20 23 03/06/2023 DRUG TOX MONIT ORING BENZO DIAZE PINES , QN, U alphahydroxy alprazolam NEGATI VE NG/mL <25 See Note 1 Not Available [facility] [address], [address], 03/06/2023 17:28:07 03/02/20 23 03/06/2023 DRUG TOX MONIT ORING BENZO [place]IA[place] , QN, U alphahydroxy midazolam NEGATI VE NG/mL <50 See Note 1 Not Available [facility] [place] [facility] [address], [address], 03/06/2023 17:28:07 03/02/20 23 03/06/2023 DRUG TOX MONIT ORING BENZO [place] , QN, U alphahydroxy triazolam NEGATI VE NG/mL <50 See Note 1 Not Available [facility] [address], [address], 03/06/2023 17:28:07 03/02/20 23 03/06/2023 DRUG TOX MONIT ORING BENZO [place] , QN, U aminoclonaze serena NEGATI VE NG/mL <25 See Note 1 Not Available [facility] [place] [facility] [address], [place], [address], 03/06/2023 17:28:07 03/02/20 23 03/06/2023 DRUG TOX MONIT ORING BENZO DIAZE [place]ES , QN, U hydroxyethyl flurazepam NEGATI VE NG/mL <50 See Note 1 Not Available [facility] [place] [facility] [address], [place], [address], 03/06/2023 17:28:07 03/02/20 23 03/06/2023 DRUG TOX MONIT ORING BENZO DIAZE [place]ES , QN, U lorazepam 92 NG/mL <50 high See Note 1 Not Available [facility] [place] [facility] [address], [place], [address], 03/06/2023 17:28:07 03/02/20 23 03/06/2023 DRUG TOX MONIT ORING BENZO DIAZE [place]ES , QN, U nordiazepam NEGATI VE NG/mL <50 See Note 1 Not Available [facility] [place] [facility] [address], [place], [address], 03/06/2023 17:28:07 03/02/20 23 03/06/2023 DRUG TOX MONIT ORING BENZO DIAZE [place]ES , QN, U oxazepam NEGATI VE NG/mL <50 See Note 1 Not Available [facility] [place] [facility] [address], [place], [address], 03/06/2023 17:28:07 03/02/20 23 03/06/2023 DRUG TOX MONIT ORING BENZO DIAZE [place]ES , QN, U temazepam NEGATI VE NG/mL <50 See Note 1 Not Available [facility] [place] [facility] [address], [place], [address], 03/06/2023 17:28:07 03/02/20 23 03/06/2023 DRUG TOX MONIT ORING BENZO DIAZE PINES , QN, U Unknown Analyte See Note 2 Note 1 This test was devel oped and its jonn tical perfo rmanc e milka cteri stics have been deter mined by [facility]. It has not been clear ed or appro shaun by the FDA. This assay has been valid ated pursu ant to the CLIA regul ation s and is used for clini ashley purpo ses. Note 2 This drug testi ng is for medic al treat ment only. Jonn sis was perfo rmed as non-f orens ic testi ng and these resul ts shoul d be used only by [facility] to rende r diagn osis or treat ment, or to monit or progr ess of medic al condi tions . For sundeep tance with inter preti ng these drug resul ts, pleas e conta ct a [facility] Toxic ology Speci alist : [phone] ([phone] ), M-F, 8am-6 pm EST. Not Available [facility] [place] [facility] [address], [place], [address], 03/06/2023 17:28:07 Result Notes None recorded. Problems Name Problem SNOMED Code Status Onset Date Resolution Date Notes Provider Name and Address Organization Details Recorded Time Benign essential hypertens ion 4542835 Active Not Available [facility] 0 14:49:00 Abnormal findings on diagnosti c imaging of breast 582889681 Active Not Available [facility] 0 14:49:00 Anxiety state 671330468 Active Not Available [facility] 0 14:49:00 Hyperlipi demia 88906524 Active Not Available [facility] 0 14:49:00 Tobacco user 537081940 Active 2015 Not Available [facility] 0 14:49:00 Allergic rhinitis 11326716 Active 2015 Not Available [facility] 0 14:49:00 Impaired fasting glycemia 083859236 Active 2015 Not Available [facility] 0 14:49:00 Scar neuroma 716965640 Active 2017 Not Available [facility] 0 14:49:00 Arthritis 9595116 Active 2018 inflammato ry arthritis (primary) manaed by rheumatolo linda cid Not Available [facility] 0 14:49:00 Eruption 080798098 Active Marcial Newsome [address] [place], [address] , [facility] 2 08:54:52 Problem Notes None recorded. Procedures Surgical History Date Name Laterality Status Provider Name and Address Organization Details Recorded Time 06/02/19 24 Smoking cessation counseling cancelled KARI Ceorn [facility] 06/01/2023 16:29:47 03/02/20 23 Smoking cessation counseling completed Barbara Rodriguez CMA [facility] 03/01/2023 14:21:42 01/14/20 23 Visual field comprehensive completed Rupali Spivey, OD [address] [place], [address], [facility] 02/01/2023 16:00:34 01/14/20 23 Optical Coherence Tomography (Retina) completed Rupali Spivey, OD [address] [place], [address], [facility] 02/01/2023 16:01:39 08/27/19 23 Smoking cessation counseling completed Angeline Castro MA [facility] 06/04/2022 09:39:33 08/27/19 23 Cardiovascular disease risk reduction counseling completed Marcial Newsome [address] [place], [address], [facility] 08/26/2022 11:02:26 02/05/20 22 Visual field comprehensive completed Rupali Spivey, OD [address] [place], [address], [facility] 02/13/2022 20:42:08 01/14/20 22 Smoking cessation counseling completed Rupali Spivey, OD [address] [place], [address], [facility] 01/20/2022 11:37:49 01/14/20 22 Refraction completed Rupali Spivey, OD [address] [place], [address], [facility] 01/13/2022 11:45:43 01/14/20 22 Optical Coherence Tomography (Retina) completed Rupali Spivey, OD [address] [place], [address], [facility] 01/20/2022 11:36:45 11/11/19 22 Smoking cessation counseling completed Gemini Ontiveros [facility] 11/10/2021 09:43:07 08/06/19 22 Smoking cessation counseling completed Estelle Martinez MA [facility] 08/04/2021 14:21:57 05/27/19 22 Smoking cessation counseling completed Estelle Martinez MA [facility] 05/26/2021 16:06:42 03/03/20 21 Smoking cessation counseling completed Estelle Martinez MA [facility] 03/03/2021 10:18:03 10/24/19 21 Smoking cessation counseling completed Estelle Martinez MA [facility] 10/22/2020 08:40:53 09/05/19 21 Smoking cessation counseling completed Marcial Newsome [address] [place], [address], [facility] 09/04/2020 14:17:12 03/19/20 20 Smoking cessation counseling completed Keyla Thurston MA [facility] 03/18/2020 18:27:43 10/03/19 20 Smoking cessation counseling completed Anita Ward [facility] 10/02/2019 16:29:52 04/04/20 19 Smoking cessation counseling completed Shannan Mckeon LPN [facility] 04/04/2019 09:49:17 04/04/20 19 Carbon Monoxide Testing completed Shannan Mckeon LPN [facility] 04/04/2019 09:49:17 02/01/20 19 Visual field comprehensive completed Rupali Spivey, OD [address] [place], [address], [facility] 01/31/2019 16:53:43 12/07/19 19 Smoking cessation counseling completed Odell Riddle [facility] 12/06/2018 11:59:28 12/07/19 19 Refraction completed dOell Riddle [facility] 12/06/2018 11:59:31 12/07/19 19 Optical Coherence Tomography (Retina) completed Rupali Spivey, OD [address] [place], [address], [facility] 12/12/2018 09:27:11 10/25/19 19 Smoking cessation counseling completed Rupali Spivey, OD [address] [place], [address], [facility] 10/27/2018 08:58:33 10/25/19 19 Smoking cessation counseling completed Keyla Thurston [facility] 10/24/2018 10:06:22 10/06/19 19 Smoking cessation counseling completed Shannan Mckeon LPN [facility] 10/05/2018 13:37:44 10/06/19 19 Carbon Monoxide Testing completed Shannan Mckeon LPN [facility] 10/05/2018 13:37:44 09/22/19 19 Smoking cessation counseling completed Shannan Mckeon LPN [facility] 09/21/2018 09:18:48 09/22/19 19 Carbon Monoxide Testing completed Shannan Mckeon LPN [facility] 09/21/2018 09:18:48 05/25/19 19 Smoking cessation counseling completed Shannan Mckeon LPN [facility] 05/25/2018 11:46:31 05/25/19 19 Carbon Monoxide Testing completed Shannan Mckeon LPN [facility] 05/25/2018 11:46:31 03/30/20 18 Smoking cessation counseling completed KARI Ceron [facility] 03/30/2018 16:13:08 11/23/19 18 Smoking cessation counseling completed Maryjane Mujica [facility] 11/22/2017 09:11:50 11/23/19 18 Carbon Monoxide Testing completed Maryjane Mujica [facility] 11/22/2017 09:11:51 07/16/19 18 Smoking cessation counseling completed Shannan Mckeon [facility] 07/15/2017 09:36:44 07/16/19 18 Carbon Monoxide Testing completed Shannan Mckeon [facility] 07/15/2017 09:36:44 06/10/19 18 Smoking cessation counseling completed Marcial Newsome [address] [place], [address], [facility] 06/09/2017 13:48:06 06/10/19 18 Carbon Monoxide Testing completed Marcial Newsome [address] [place], [address], [facility] 06/09/2017 13:48:06 05/18/19 18 Smoking cessation counseling completed Gena Garcia [facility] 05/18/2017 09:18:31 04/07/19 18 Smoking cessation counseling completed Shannan Mckeon [facility] 04/07/2017 14:53:13 04/07/19 18 Carbon Monoxide Testing completed Shannan Mckeon [facility] 04/07/2017 14:53:13 02/24/20 17 Smoking cessation counseling completed Shannan Mckeon [facility] 02/23/2017 15:35:34 02/24/20 17 Carbon Monoxide Testing completed Shannan Mckeon [facility] 02/23/2017 15:35:34 12/25/19 17 Smoking cessation counseling completed Marcial Newsome [address] [place], [address], [facility] 12/24/2016 08:35:57 12/25/19 17 Carbon Monoxide Testing completed Marcial Newsome [address] [place], [address], [facility] 12/24/2016 08:35:57 09/30/19 17 Smoking cessation counseling completed Marcial Newsome [address] [place], [address], [facility] 09/29/2016 08:52:35 09/30/19 17 Carbon Monoxide Testing completed Marcial Newsome [address] [place], [address], [facility] 09/29/2016 08:52:35 09/08/19 17 Smoking cessation counseling completed Shannan Mckeon LPN [facility] 09/07/2016 12:34:03 09/08/19 17 Carbon Monoxide Testing completed Shannan Mckeon [facility] 09/07/2016 12:38:57 08/13/19 17 Smoking cessation counseling completed Shannan Mckeon [facility] 08/12/2016 14:53:58 07/10/19 17 Smoking cessation counseling completed Rosita Alvarado [facility] 07/09/2016 09:39:48 07/10/19 17 Carbon Monoxide Testing completed Rosita Alvarado [facility] 07/09/2016 09:45:02 06/10/19 17 Smoking cessation counseling completed Shannan Mckeon [facility] 06/09/2016 08:23:10 05/11/19 17 Smoking cessation counseling completed Irene Newby [facility] 05/11/2016 13:37:05 05/11/19 17 POC Strep Testing completed Irene Newby [facility] 05/11/2016 14:07:09 05/09/19 17 Smoking cessation counseling completed Patti Dietz Leeann [facility] 05/09/2016 10:26:43 05/09/19 17 POC Flu Testing completed Patti Dietz Leeann [facility] 05/09/2016 10:51:28 12/24/19 16 Smoking cessation counseling completed Shannan Mckeon [employer] [facility] 12/24/2015 08:13:22 12/24/19 16 Carbon Monoxide Testing completed Shannan Mckeon [employer] [facility] 12/24/2015 08:15:07 10/31/19 16 POC Urinalysis Testing completed Magda Arteaga CMA [facility] 10/31/2015 14:43:53 09/24/19 16 Smoking cessation counseling completed Shannan Mckeon LPN [facility] 09/24/2015 11:14:41 09/24/19 16 Carbon Monoxide Testing completed Shannan Mckeon LPN [facility] 09/24/2015 11:22:01 06/25/19 16 Smoking cessation counseling completed Irene Newby [facility] 06/25/2015 10:00:47 06/25/19 16 Carbon Monoxide Testing completed Irene Newby [facility] 06/25/2015 09:59:01 03/13/20 15 Smoking cessation counseling completed Magda Arteaga [facility] 03/13/2015 09:49:53 12/07/19 15 Smoking cessation counseling completed Nazia Fair [facility] 12/06/2014 08:44:32 03/03/20 14 Nebulizer Tx completed Brissa Lezama NP [address] [place] [address], [phone], [facility] 03/03/2014 13:05:52 10/04/19 14 Excision completed Ngozi Marie PA-C [address] [place] [address], [address], [facility] 10/03/2013 11:37:59 05/03/19 14 Smoking cessation counseling completed Ngozi Marie PA-C [address] [place] [address], [address], [facility] 05/03/2013 09:02:06 12/23/19 13 Smoking cessation counseling completed Ngozi Marie PA-C [address] [place] [address], [address], [facility] 12/22/2012 09:46:52 Imaging Results None recorded. Procedure Notes None recorded. Medical Equipment None Reported. Allergies Allergen ID Allergen Name Allergen Category Reaction Reaction Severity Criticality Documentation Date Start Date Code Code System Note Provider Name and Address Organization Details Recorded Time [id number] Substance with sulfonami de structure and antibacte rial mechanism of action (substanc e) medicatio n hives Not available Not available 09/01/2012 08644 8003 SNOMED Hives all over body Arielle hernandez [facility] 3 09:44:27 804017 Demerol medicatio n vomiting Not available Not available 09/01/2012 48835 1 RxNorm Arielle Peralta [facility] 3 09:44:27 [id number] Product containin g penicilli n (product) medicatio n Not available Not available Not available 09/01/2012 68129 8001 SNOMED swell ing all over Arielle Peralta [facility] 3 09:44:27 151324 Chantix medicatio n headache Not available Not available 06/09/2016 26341 0 RxNorm Marcial Newsome [address] [facility], [place], [address], [facility] 7 08:36:43 390303 carbamaze pine medicatio n hives moderate Not available 07/15/2017 2002 RxNorm Marcial Newsome [address] [facility], [place], [address], [facility] 8 09:53:13 100295 lisinopri l medicatio n cough Not available Not available 03/01/2019 30478 RxNorm Alissa Marte CMA(AAMA) [facility] 9 10:20:41 [id number] duloxetin e medicatio n insomnia moderate Not available 10/23/2020 69618 RxNorm Marcial Newsome [address] [facility], [place], [address], [facility] 1 12:31:15 Medications Name Sig Start Date Stop Date Status Note LastModified by Organization Details LastModified Time quit 4 you initial consult QUIT FOR YOU INITIAL CONSUL 11/22 completed Not Available Not Available Not Available losartan 50 mg tablet Take 1 tablet by mouth daily 10/02 completed Not taking 0 SD Not taking 0 SD Not Available Not Available Not Available budesonid e 32 mcg/actua tion nasal spray INSTILL 1 SPRAY INTO NOSTRIL( S) DAILY 12/23 completed Not Available Not Available Not Available betametha sone valerate 0.1 % topical ointment APPLY TO THE AFFECTED AREA S) ON THE BACK 2 TIMES A DAY FOR 2 WEEKS THEN BREAK FOR 1 WEEK AND REPEAT. 03/28 completed Not Available Not Available Not Available bupropion HCl SR 150 mg tablet,12 hr sustained -release Take 1 tablet twice a day by oral route for 30 days. active Not Available Not Available No t Available gabapenti n 600 mg tablet Take 1 tablet twice a day by oral route. 05/27 completed Not taking 2 JUAN Not Available Not Available Not Available nicotine 14 mg/24 hr daily transderm al patch Apply 1 patch every day by transder mal route. 05/18 completed not using Not Available Not Available Not Available clindamyc in HCl 300 mg capsule Take 1 capsule every 6 hours by oral route for 10 days. 02/23 completed finished 12-24-16 JG Not Available Not Available Not Available albuterol sulfate 2.5 mg/3 mL (0.083 %) solution for nebulizat ion INHALE THE CONTENTS OF 1 VIAL ( 3ML ) EVERY 4-6 HOURS NEEDED 03/30 completed Not Available Not Available Not Available cefpodoxi me 200 mg tablet take 1 tablet by mouth every 12 hours 09/07 completed Not Available Not Available Not Available azithromy jarocho 250 mg tablet TAKE 2 TABLETS (500 MG) BY ORAL ROUTE ONCE DAILY FOR 1 DAY THEN 1 TABLET (250 MG) BY ORAL ROUTE ONCE DAILY FOR 4 DAYS 08/12 completed Not Available Not Available Not Available ibuprofen 800 mg tablet Take 1 tablet 3 times a day by oral route with meals for 14 days. 05/09 completed Not Available Not Available Not Available tizanidin e 4 mg tablet take 1 tablet by mouth once daily EVERY NIGHT at bedtime 09/04 completed Not taking 0 SD Not taking 0 SD Not Available Not Available Not Available Claritin 10 mg tablet Take 1 tablet every day by oral route. 07/15 completed stopped 12-24-16 JG Not Available Not Available Not Available lisinopri l 20 mg tablet Take 1 tablet every day by oral route for 30 days. 04/04 completed Not Available Not Available Not Available prednison e 20 mg tablet 08/12 completed Not Available Not Available Not Available sertralin e 100 mg tablet take 1 tablet by mouth once daily 02/23 completed Weaned self off Not Available Not Available Not Available acetamino phen 300 mg-codein e 30 mg tablet TK 1 T PO QD FOR SEVERE PAIN 09/04 completed not using 09/04/2020 JUAN Not Available Not Available Not Available Nicotrol 10 mg inhalatio n cartridge Puff for 20 minutes at a time as needed 05/09 completed Not Available Not Available Not Available lidocaine -prilocai ne 2.5 %-2.5 % topical cream APPLY TO LEG 2 HOURS BEFORE PROCEDUR E. APPLY THICK LAYER AND LOOSELY COVER WITH PLASTIC WRAP 08/26 completed not taking 08/26/22 Not Available Not Available Not Available Aleve 220 mg tablet Take 1 tablet every 12 hours by oral route as needed. 03/28 completed switchin g off b/w aleve, ibuprofe n, and tylenol Not Available Not Available Not Available carbamaze pine 200 mg tablet take 1 tablet by mouth twice a day 07/15 completed Stopped due to hives 07-15-17 JG Not Available Not Available Not Available lorazepam 0.5 mg tablet TAKE ONE TABLET BY MOUTH TWICE A DAY active Not Available Not Available No t Available tamsulosi n 0.4 mg capsule Take 1 capsule every day by oral route for 30 days. 12/23 completed Not Available Not Available Not Available amlodipin e 10 mg tablet TAKE ONE TABLET BY MOUTH EVERY DAY 03/28 completed Not Available Not Available Not Available benzonata te 100 mg capsule take 1 capsule by mouth three times a day if needed 06/09 completed Not Available Not Available Not Available Cipro 500 mg tablet Take 1 tablet every 12 hours by oral route for 10 days. 03/18 completed Not Available Not Available Not Available clotrimaz ole-betam ethasone 1 %-0.05 % topical cream APPLY TO THE AFFECTED AND SURROUND ING AREAS OF SKIN 2 TIMES A DAY FOR 2 WEEKS 09/04 completed not using 09/04/2020 JUAN Not Available Not Available Not Available Guaifenes in AC 10 mg-100 mg/5 mL oral liquid TAKE 10 ML (2 TEASPOON SFUL) BY MOUTH EVERY 4 TO 6 HOURS IF NEEDED FOR SEVERE COUGH 09/23 completed Not Available Not Available Not Available prednison e 50 mg tablet TK 1 T PO QD FOR 5 DAYS 10/02 completed Not Available Not Available Not Available nicotine 21 mg/24 hr daily transderm al patch Apply 1 patch every day by transder mal route. 05/18 completed not using 04-07-18 JG Not Available Not Available Not Available ibuprofen 200 mg tablet Take 1 tablet every 6 hours by oral route as needed. active switchin g off b/w aleve, ibuprofe n, and tylenol Not Available Not Available Not Available gabapenti n 300 mg capsule TAKE TWO CAPSULES BY MOUTH TWICE A DAY 03/03 completed taking 600 twice a day 03/03/20 21 JUAN Not Available Not Available Not Available benazepri l 20 mg tablet TAKE 1 TABLET BY MOUTH ONCE DAILY 04/04 completed Not Available Not Available Not Available acetamino phen 300 mg-codein e 60 mg tablet 09/04 completed not using 09/04/2020 JUAN Not Available Not Available Not Available lorazepam 1 mg tablet TAKE 1 TAB BY MOUTH 2 TIMES DAILY IF NEEDED active Not Available Not Available No t Available hydroxych loroquine 200 mg tablet TAKE ONE TABLET BY MOUTH TWICE A DAY 03/28 completed Not Available Not Available Not Available levofloxa jarocho 500 mg tablet TAKE 1 TABLET BY MOUTH DAILY FOR 14 DAYS active Not Available Not Available No t Available levofloxa jarocho 750 mg tablet TAKE 1 TABLET BY MOUTH ONCE DAILY FOR 5 DAYS active Not Available Not Available No t Available albuterol sulfate HFA 90 mcg/actua tion aerosol inhaler INHALE 1 OR 2 PUFFS BY MOUTH EVERY 4 TO 6 HOURS NEEDED FOR DIFFICUL TY BREATHIN G. active Not Available Not Available No t Available fluticaso ne propionat e 50 mcg/actua tion nasal spray,césar pension USE 1 SPRAY INTO EACH NOSTRIL 2 TIMES DAILY active Not Available Not Available No t Available sertralin e 50 mg tablet take 1 tablet by mouth once daily active Not Available Not Available No t Available doxycycli ne hyclate 100 mg tablet take 1 tablet by mouth twice a day for 10 days 06/09 completed Not Available Not Available Not Available oxycodone 5 mg tablet TAKE 1 TABLET BY MOUTH UP TO ONCE A DAY NEEDED 07/15 completed Not Available Not Available Not Available amlodipin e 10 mg-benaze pril 20 mg capsule TAKE 1 CAPSULE BY MOUTH ONCE DAILY 11/05 completed Not Available Not Available Not Available nicotine (polacril ex) 4 mg buccal lozenge Take 1 tablet every 2 hours by oral route. 05/18 completed currentl y not using 1-3-18 JG Not Available Not Available Not Available Systane (propylen e glycol) 0.4 %-0.3 % eye drops PLACE 1 DROP IN EACH EYE 2 - 4 TIMES A DAY. 03/28 completed Not Available Not Available Not Available duloxetin e 20 mg capsule,d elayed release TAKE 1 CAPSULE BY MOUTH ONCE DAILY FOR 10 DAYS AND THEN TAKE ONE CAPSULE TWICE DAILY FOR 10 DAYS 10/23 completed does not take 10/23/20 KRB Not Available Not Available Not Available duloxetin e 60 mg capsule,d elayed release Take 1 capsule every day by oral route for 90 days. 10/23 completed does not take 10/23/20 KRB Not Available Not Available Not Available calcium 08/26 completed not taking 08/26/22 Not Available Not Available Not Available Fish Oil 08/26 completed not taking 08/26/22 Not Available Not Available Not Available Super B-50 Complex 1 PO QD active with folic acid and vitamin C Not Available Not Available Not Available Craig 3 Fish Oil 1 PO QD active 1200mg Not Available Not Available Not Available Saline Nasal 11/22 completed Not Available Not Available Not Available Multivita min 50 Plus 03/28 completed Not Available Not Available Not Available Chantix Continuin g Month Box 1 mg tablet Take 1 tablet twice a day by oral route for 30 days. 09/23 completed Not Available Not Available Not Available Chantix Starting Month Box 0.5 mg (11)-1 mg (42) tablets in dose pack Take by oral route per pack instruct ions 09/23 completed Not Available Not Available Not Available duloxetin e 40 mg capsule,d elayed release TAKE 1 CAPSULE BY MOUTH DAILY. 09/04 completed not taking 09/04/2020 JUAN Not Available Not Available Not Available Shingrix (PF) 50 mcg/0.5 mL intramusc ular suspensio n, kit 09/04 completed Not Available Not Available Not Available Afluria Quad (PF) 60 mcg (15 mcg x 4)/0.5 mL IM syringe inject 0.5 millilit er intramus cularly 03/30 completed Not Available Not Available Not Available Fluarix Quad (PF) 60 mcg (15 mcg x 4)/0.5 mL IM syringe inject 0.5 millilit ers intramus cularly 04/04 completed Not Available Not Available Not Available Fluarix Quad (PF) 60 mcg (15 mcg x 4)/0.5 mL IM syringe ADM 0.5ML IM UTD 09/04 completed Not Available Not Available Not Available Vitals Date Recorded Body height Body mass index (BMI) Body weight Heart rate Systolic blood pressure Diastolic blood pressure Provider Name and Address Organization Details Last Updated DateTime 3 173.36 cm 30.2 kg/m2 42509.5 7 g 66 /min 130 mm[Hg] 80 mm[Hg] Jeanne Manley [facility] 3 09:57:32 Date Recorded Body height Body mass index (BMI) Body weight Heart rate Systolic blood pressure Diastolic blood pressure Provider Name and Address Organization Details Last Updated DateTime 3 173.36 cm 29.3 kg/m2 32497.0 2 g 74 /min 136 mm[Hg] 74 mm[Hg] Barbara Rodriguez [facility] 3 08:27:07 Date Recorded Systolic blood pressure Diastolic blood pressure Provider Name and Address Organization Details Last Updated DateTime 03/02/2023 129 mm[Hg] 76 mm[Hg] Marcial Newsome [address] [place] [address], [phone], [facility] 03/02/2023 09:06:14 Social History Question Answer Notes LastModified by Organization Details LastModified Time Tobacco Smoking Status Current Every Day Smoker Shannan Mckeon LPN [facility], [facility] 09/13/2014 08:37:21 What Is Your Level Of Alcohol Consumption? None [email or web address] Information not available 03/30/2018 Do You Wear A Helmet When Biking? No N/a Information not available 09/24/2015 What Is Your Level Of Caffeine Consumption? Moderate 2 To 4 Cups Of Coffee For The Day Information not available 09/01/2012 How Much Tobacco Do You Chew? None Information not available 09/01/2012 Are You Currently Employed? No Information not available 05/27/2021 What Type Of Diet Are You Following? REGULAR Information not available 09/01/2012 Do You Or Have You Ever Used E-cigarettes Or Vape? Never Used Electronic Cigarettes Information not available 09/04/2020 What Is The Highest Grade Or Level Of School You Have Completed Or The Highest Degree You Have Received? 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 No Information not available 05/27/2021 Are There Any Guns Present In Your Home? Yes Secured Information not available 09/24/2015 CSRP Contract Signed And Discussed Yes 11/10/2021 ( ) [email or web address] Information not available 07/26/2013 Patient Has Health Care Proxy Signed And In Chart Yes [email or web address] Information not available 08/28/2022 CSRP - Benzodiazepines No Lorazepam 0.5 Mg CSRP ON HOLD - NEEDS APPT. PER [email or web address] Information not available 12/02/2023 What Was The Date Of Your Most Recent Tobacco Screening? 03/02/2023 [email or web address] Information not available 03/02/2023 How Many Children Do You Have? 1 Sivan/198 3 Information not available 09/01/2012 Are There Any Occupational Health Risks Where You Work? No Information not available 09/13/2014 What Is Your Current Pack Years? [email or web address] Information not available 09/24/2015 What Is Your Relationship Status? Cj [email or web address] (2022) (has Been And Before) Information not available 03/02/2023 Do You Use Your Seat Belt Or Car Seat Routinely? Yes Information not available 05/27/2021 Are You Sexually Active? Yes Information not available 09/01/2012 Do You Have Smoke And Carbon Monoxide Detectors In Your Home? Yes Information not available 05/27/2021 At What Age Did You Start Smoking Tobacco? 18 Information not available 09/01/2012 Are You Passively Exposed To Smoke? No Information not available 05/27/2021 Do You Or Have You Ever Used Smokeless Tobacco? Never Used Smokeless Tobacco Information not available 09/04/2020 How Much Tobacco Do You Smoke? 0.5 PPD Information not available 09/04/2020 What Types Of Sporting Activities Do You Participate In? No Information not available 09/13/2014 Do You Use Sunscreen Routinely? Yes Information not available 09/13/2014 How Many Years Have You Smoked Tobacco? 35 Information not available 09/04/2020 Sex: Female Functional Status Question Answer Note LastModified by Organizat ion Details LastModified Time What is your exercise level? Moderate walking x 2 daily Information not available 09/13/2014 Mental Status None recorded. Family History Relationship Description Onset Age of this Age Resolved Age Notes LastModified by Organization Details LastModified Time Paternal Grandmother Malignant tumor of breast 84 [email or web address] Not available 2014 10:54:59 Father Hypertensive disorder [email or web address] Not available 2014 10:54:59 Mother Hypertensive disorder [email or web address] Not available 2014 10:54:59 Mother Malignant neoplastic disease 54 54 [email or web address] Not available 09/05/2013 10:09:38 Maternal Grandmother Malignant neoplastic disease oral? [email or web address] Not available 2014 10:54:59 Maternal Uncle Marfan's syndrome [email or web address] Not available 2014 10:54:59 Maternal Uncle Myocardial infarction [email or web address] Not available 03/13 10:54:59 Maternal Uncle Marfan's syndrome [email or web address] Not available 2014 10:54:59 Maternal Uncle Aortic aneurysm [email or web address] Not available 2014 10:54:59 Notes:no colon ca Medical History Condition Response Anxiety Y Hyperlipidemia Y Hypertension Y Gynecological History Statement/Question Response Menses Monthly N HPV Yes History of Abnormal Pap Yes Age at Menarche 17 Date of LMP Obstetrics History GPAL:G 0 P 0 0 0 0 Immunizations Vaccine Type Date Status Note Provider Nam e and Address Organization Details Recorded Time Tdap 3 completed Not Available [facility] 04/22/2019 02:16:06 Influenza, split virus, trivalent, PF 3 completed Not Available [facility] 04/22/2019 02:18:58 Influenza, split virus, quadrivalent, PF 5 completed Not Available [facility] 04/22/2019 02:19:46 influenza, unspecified formulation 2 completed Not Available [facility] 10/22/2022 11:38:51 Influenza, split virus, quadrivalent, PF 6 completed Not Available [facility] 04/22/2019 02:26:36 Influenza, split virus, quadrivalent, PF 7 completed Not Available [facility] 04/22/2019 02:21:41 influenza, unspecified formulation 8 completed Not Available [facility] 10/22/2022 11:38:51 influenza, unspecified formulation 9 completed Not Available [facility] 10/22/2022 11:38:51 zoster recombinant 9 completed Not Available [facility] 10/22/2022 11:38:51 Influenza, split virus, quadrivalent, preservative 0 completed Not Available [facility] 10/22/2022 11:38:51 Past Encounters Encounter ID Performer Location Encounter Start Date Encounter Closed Date Diagnosis/Indication Diagnosis SNOMED-CT Code Diagnosis ICD10 Code Diagnosis Note [id number] [facility], OFFICE [address] [place] [address] [phone] 6 09/01/2012 08:52:16 09/01/2012 11:05:42 [id number] Arielle Peralta [facility] OFFICE [address] [place] [address] 40143-353 6 09/14/2012 10:53:02 09/14/2012 11:33:36 [id number] Karla Lea [facility] OFFICE [address] [place] [address] 12/22/2012 08:49:38 12/22/2012 09:58:21 Influenza vaccine needed [id number] 106 Benign ess ential hypertension 4665149 under control Anxiety state 100853004 Depressive disorder 20919224 Tobacco user 743761676 [id number] Karla Lea , [facility] OFFICE [address] [place] [address] 25055-209 6 05/03/2013 08:47:06 05/03/2013 09:20:01 Tobacco user 232154609 Cough 41747365 Hyperlipidemia 91858197 LDL down to 125 from 151 in December 2012. All due to lifestyle changes. Benign ess ential hypertension 2440611 under control [id number] Karla Lea , [facility] OFFICE [address] [place] [address] 17958-852 6 07/25/2013 11:10:23 07/25/2013 11:39:38 Anxiety state 355205103 Infection of tooth 969583522 Tobacco user 405808265 [id number] Anabella JAIN, [facility] OFFICE [address] [place] [address] [id number] 6 09/05/2013 10:02:40 09/05/2013 11:31:35 Adult health examination 341849667 see Risk Assessment and Lifestyle Change Counseling section above Counseling [id number] Benign ess ential hypertension 1048444 well controlled today, continue current meds Hyperlipidemia 36848178 LDL up to 133 from 125. Re-institu te lifestyle changes Anxiety state 587921460 CSRP pt stable on lorazapam Screening for malignant neoplasm of colon 256371995 Screening mammography 40007571 [id number] DEIDRA Zhou, [facility], OFFICE [address] [place] [address] [id number] 6 10/03/2013 09:01:56 10/03/2013 11:08:00 Keratosis 613103555 pedunculat ed, on extensor surface of elbow. Excised, with 3 sutures placed to close resulting wound. Lesion sent to pathology for eval [id number] OLIVIA Burleson, [facility], OFFICE [address] [place] [address] 95686-139 6 02/26/2014 08:26:27 02/26/2014 09:06:40 Acute sinusitis 56502123 Question if bacterial given one-sided nature. Given that pt is also smoker, that will impair ability to heal. Bronchitis 46992945 Ques tion if pt has early COPD at this point in time, especially given her quiet breathing and worsening SOB. Recommend z-pack and prednisone . Recommend pulmonary function testing if well. [id number] OLIVIA Burleson, [facility], OFFICE [address] [place] [address] 03/03/2014 11:54:21 03/03/2014 13:05:04 Acute upper respiratory infection 72318130 Wheezing 25466794 [id number] OLIVIA Burleson, [facility] OFFICE [address] [place] [address] [id number] 6 03/08/2014 11:44:30 03/08/2014 13:59:10 Sinusitis 41855585 Hyperlipidemia 20150512 10-year risk = 20% lifestyle changes, steven smoking cessation recheck lipids in 3 months, consider statin at that time Tobacco user 894316996 [id number] OLIVIA Burleson, [facility] OFFICE [address] [place] [address] [id number] 6 05/22/2014 13:17:22 05/22/2014 14:21:32 Chronic sinusitis 89163722 [id number] Karo rosado , [facility] OFFICE [address] [place] [address] 26716-143 6 07/17/2014 15:21:41 07/18/2014 10:44:53 Screening for malignant neoplasm of colon 347751257 Referral for a DIRECT booked colonoscop y. This patient is a healthy ASA Class 1 or 2 patient (only mild systemic disease), or a STABLE, well controlled insulin dependent diabetic. They do not have serious cardiac disease ie NM/angiopl asty within 1 year, symptomati c CHF; renal failure with CKD 4 or 5; take Coumadin, Plavix, Aggrenox, etc; nor take chronic narcotics. [Patients who take chronic narcotics should be referred to [facility] for a propofol procedure due to possible inability to sedate adequately with conscious sedation.] Anxiety state 819668066 CSRP pt stable on lorazapam Q12H Benign ess ential hypertension 1103048 well controlled today, continue current meds [id number] Fidelia JAIN, [facility] OFFICE [address] [place] [address] 09/13/2014 08:17:23 09/13/2014 09:19:01 Adult health examination 425669626 see Risk Assessment and Lifestyle Change Counseling section above Counseling 721169130 Wheezing 22733478 Tita mayen smoking - working on quitting - will see in 3 months and plan on pulmonary function testing Screening for malignant neoplasm of colon 479377585 Referral for a DIRECT booked colonoscop y. This patient is a healthy ASA Class 1 or 2 patient (only mild systemic disease), or a STABLE, well controlled insulin dependent diabetic. They do not have serious cardiac disease ie NM/angiopl asty within 1 year, symptomati c CHF; renal failure with CKD 4 or 5; take Coumadin, Plavix, Aggrenox, etc; nor take chronic narcotics. [Patients who take chronic narcotics should be referred to [facility] for a propofol procedure due to possible inability to sedate adequately with conscious sedation.] Tobacco user [id number] SUSY, [facility] OFFICE [address] [place] [address] 12/06/2014 08:37:30 12/06/2014 09:32:54 Benign essential hypertension 3142716 Blood pressures at goal (<140/90). To continue with current medication s with routine follow-up. Tobacco user 007776674 P t is working on cutting down with Chantix. Will refill if need be going forward. Will plan on follow-up in 8 weeks and see how she's doing between that and the Lifestyle 236525003 Bronchitis 62229468 Most accurate without smoking, so will have pt continue to work on stopping. Influenza vaccine needed 2664184907 106 Allergic rhinitis 53916182 Will start on inhaled nasal spray that insurance will pay for and to continue with Claritin simultaneo usly Anxiety 31646702 Recomme nd starting another medication in addition to the lorazepam to see if she can get off that one. Will follow-up in 6 weeks. [id number] Marcial Newsome , [facility] OFF[facility] [address] [place] [address] 01/22/2015 09:59:59 01/22/2015 19:46:11 Anxiety state 743850706 F41.1 Tobacco user 589486439 Z 72.0 Will retry going forward Allergic rhinitis 126105 04 J30.9 To continue on inhaled nasal spray that insurance will pay for and to continue with Claritin simultaneo usly Hyperlipidemia 04403690 E78.5 [id number] Iwona Chilel , [facility], OFFICE [address] [place] [id number] 6 02/06/2015 11:09:34 02/06/2015 17:11:02 Acute bronchitis 37679391 J20.9 Tobacco user 515135882 Z 72.0 Will retry chantix going forward [id number] Jayshree Rodriguez MD , [facility] OFFICE [address] [place] [address] [id number] 6 03/13/2015 09:42:04 03/13/2015 11:27:07 Tobacco user 948901999 Z72.0 Acute sialoadenitis 1097 27057 K11.21 [id number] Marcial Newsome , [facility] OFFICE [address] [place] [address] [id number] 6 03/14/2015 09:15:17 03/14/2015 11:31:34 Anxiety state 278560754 F41.1 Acute sialoadenitis 1097 20721 K11.21 Recommend continuing with current regimen with the understand ing as below. Tobacco user 397841696 Z 72.0 Will retry chantix going forward Will retry going forward Temporoman dibular joint disorder 86876889 M26.60 Would want to start [id number] Iwona Chilel , [facility] OFFICE [address] [place] [address] 89760[address]170 6 04/02/2015 08:02:19 04/02/2015 08:44:39 Acute sialoadenitis 974622994 K11.21 Much improved, although slight inflammati on. Will give it another month to see if it comes down more. Acute uppe r respiratory infection 43283576 J06.9 Menopausal flushing 1984 40355 N95.1 Would want liver function tested before recommendi ng herbal supplement ation but could consider black cohosh then. Also discussed regular meditation and acupunctur e. [id number] Marcial Newsome , [facility] OFFICE [address] [place] [address] 78599-186 6 05/09/2015 09:16:29 05/09/2015 10:10:55 Acute sialoadenitis 816192525 K11.21 Effectivel y resolved. Menopausal flushing 1983 39603 N95.1 Would want liver function tested before recommendi ng herbal supplement ation but could consider black cohosh then. Anxiety state 546896212 F41.1 Pt is doing well on the sertraline and with learning more about her anxiety. Will change next script pickup to #40. Will plan on follow-up in 6-8 weeks to see how she is doing. Tobacco user 442126457 Z 72.0 Will retry chantix going forward Temporoman dibular joint disorder 26774854 M26.60 To continue with tizanidine , to bring current OTC bite guard to dentist to evaluate. [id number] Destiny Jaimes PA-C , [facility], OFFICE [address] [place] [address] 05/21/2015 11:37:11 05/21/2015 12:01:12 Acute upper respiratory infection 66583669 J06.9 Educated patient that URI is a viral illness of the upper airways. It is not bacterial and does not benefit from antibiotic s. Average duration of URI is 7-10 days but in a recent trial, treatment at 7-10 days of illness with antibiotic s, intranasal steroids, or placebo did not alter natural history at 3 weeks. Recommende d symptomati c treatments including NSAIDS, semi-uprig ht sleep position, antihistam kamala at HS, limited course of nasal sympathomi metics and/or cough syrups, and nasal saline rinses with soft squeeze bottle or Neti pot. Return for fevers > 101 for 3 days, worsening sinus pain, or failure to resolve in 2-4 weeks. Cough 79290885 R05 [id number] Marcial Newsome , [facility], OFFICE [address] [place] [address] 06/25/2015 09:14:35 06/25/2015 10:43:41 Tobacco user 143367857 Z72.0 Discussion as below. Benign ess ential hypertension 3544024 I10 Blood pressures at goal (<140/90). To continue with current medication s with routine follow-up. Anxiety 70573614 F41.9 To continue with the 150mg sertraline daily. To continue to try to cut down on the lorazepam. Recommend appointmen t with the Temporoman dibular joint disorder 79521478 M26.60 To continue with tizanidine . Impaired f asting glycemia 217088801 R73.01 On recent labs. Will recheck in 3 months. Menopausal flushing 1984 95378 N95.1 Normal LFT's recommend [address] daily of black cohosh. Hyperlipidemia 18260632 E78.5 Upper resp iratory infection 74681979 J06.9 Pain in throat 180140962 R07.0 [id number] Marcial Newsome , [facility], OFFICE [address] [place] [address] 6 09/24/2015 10:52:15 09/24/2015 12:58:51 Adult health examination 708517369 Z00.00 see Risk Assessment and Lifestyle Change Counseling section above Counseling 652125660 Z71 .9 Cigarette smoker 4113548 7 F17.210 Impaired f asting glycemia 446433624 R73.01 Pt working with group at work; will repeat labs in 3 months Benign ess ential hypertension 7794026 I10 Blood pressures at goal (<140/90). To continue with current meds with routine follow-up. Anxiety state 963115722 F41.1 Discussion as below Screening mammography 24 425890 Z12.31 Screening for malignant neoplasm of cervix 345908818 Z12.4 Hyperlipidemia 80551517 E78.5 LDL elevated and HDL high. Neoplasm o f uncertain behavior of skin 52492346 D48.5 Screening for malignant neoplasm of colon 621616214 Z12.11 [id number] Desiree Tucker NP , [facility], OFFICE [address] [place] [address] 6 10/31/2015 14:37:03 10/31/2015 15:21:43 Blood in urine 43343097 R31.9 Left flank pain 31277169 9 R10.9 Kidney stone 19055918 N2 0.0 [id number] Shannan Mckeon LPN , [facility], OFFICE [address] [place] [address]35[address] 6 12/24/2015 07:36:52 12/24/2015 08:39:30 Impaired fasting glycemia 495094291 R73.01 Will see where repeat labwork is; if this is still elevated, had discussed Benign ess ential hypertension 4588791 I10 Blood pressures at goal (<140/90). To continue with current meds with routine follow-up. Tobacco user 448780112 Z 72.0 Discussion as below. Cigarette smoker 7485289 7 F17.210 Insurance paid for nicotrol but pt hasn't felt like she's in a good place to try quitting yet Hyperlipidemia 11291152 E78.5 LDL elevated on last check; will see where repeat labwork is. Jaw pain 388808665 R68.8 4 Due to TMJ; to continue with bite guards and tizanidine and to return to dentist when able. Active or passive immunization 520393407 Z23 [id number] Iwona Saez MD , [facility], OFFICE [address] [place] [address] 05/09/2016 10:04:37 05/09/2016 11:17:56 Cigarette smoker 20226621 F17.210 counseled todayaccep khloe saldivar on new quit date Tobacco user 119061720 Z 72.0 Influenza- like illness 23558930 B34.9 negative flu swabssugge stive of other viral illness, URIlikely getting second infectioni tr supportive carecough management [id number] Destiny Jaimes PA-C , [facility], OFFICE [address] [place] [address] 05/11/2016 13:36:02 05/11/2016 14:19:46 Acute upper respiratory infection 75512497 J06.9 Educated patient that URI is a viral illness of the upper airways. It is not bacterial and does not benefit from antibiotic s. Average duration of URI is 7-10 days but in a recent trial, treatment at 7-10 days of illness with antibiotic s, intranasal steroids, or placebo did not alter natural history at 3 weeks. Recommende d symptomati c treatments including NSAIDS, semi-uprig ht sleep position, antihistam kamala at HS, limited course of nasal sympathomi metics and/or cough syrups, and nasal saline rinses with soft squeeze bottle or Neti pot. Return for fevers > 101 for 3 days, worsening sinus pain, or failure to resolve in 2-4 weeks. Cigarette smoker 7716802 7 F17.210 Tobacco user 820083217 Z 72.0 Dyspnea 047448528 R06.00 - Referral for PFTs to clarify chronic shortness of breath, asthma vs COPD [id number] Shannan Mckeon LPN , [facility], OFFICE [address] [place] [address]15[address] 6 06/09/2016 08:03:28 06/09/2016 12:17:24 Tobacco user 208174281 Z72.0 Discussion as below. Cigarette smoker 3303015 7 F17.210 Pt has patch script. Recommend adding gum or lozenge; she would prefer the lozenge to the gum due to her TMJ. Anxiety state 434987030 F41.1 Pt having worsening anxiety due to current work situation. Will increase her lorazepam so she can take it twice daily on most days for now and plan on follow-up in September as scheduled. Impaired f asting glycemia 856808382 R73.01 Pt is going to go for labwork prior to [facility]. Will see where she is when due for that. Benign ess ential hypertension 0991155 I10 Blood pressures at goal (<140/90). To continue with current meds with routine follow-up. Hyperlipidemia 63199025 E78.5 LDL elevated on last check; will see where repeat labwork is. Jaw pain 522571862 R68.8 4 Due to TMJ; to continue with bite guards and tizanidine and to return to dentist when able. Wheezing 22506965 R06.2 Currently smoking - working on quitting - will see in 3 months and plan on pulmonary function testing Sialoadenitis 68409876 K 11.20 [id number] Desiree Tucker NP , [facility], OFFICE [address] [place] [address]239[address]222 6 07/09/2016 09:32:44 07/09/2016 13:21:19 Cigarette smoker 62264549 F17.210 Tobacco user 763139091 Z 72.0 Sialoadenitis 83912472 K 11.20 left, persistent . will refer to ENT Allergic rhinitis 184594 04 J30.9 to use nasal steroid daily [id number] Marcial Newsome , [facility], OFFICE [address] [place] [address] 19460[address] 6 08/12/2016 14:19:28 08/12/2016 15:45:44 Jaw pain 826107360 R68.84 Due to TMJ; to continue with bite guards and tizanidine . Cigarette smoker 4916701 7 F17.210 Tobacco user 515286466 Z 72.0 Discussion as below. Otitis media 54928753 H6 6.91 New, on R. Plan as below regarding meds for this and sinus and will keep appointmen t with ENT Acute sinusitis 68780696 J01.90 Plan as below Mass of parotid gland 31 2379642 R22.1 To see ENT as scheduled [id number] Marcial Newsome , [facility], OFF[facility] [address] [place] [address] 09/07/2016 11:56:12 09/07/2016 15:41:00 Cigarette smoker 24708014 F17.210 Tobacco user 349837228 Z 72.0 Keep using the patch and lozenge Mass of parotid gland 31 4492841 R22.1 Needle bx was inconclusi ve and pt is scheduled for surgery. To continue with pain meds as needed. To come in here for worsening pain - could consider medication for facial nerve if we feel like there's nerve pinching. [id number] Marcial Newsome , [facility], OFF[facility] [address] [place] [address] 09/29/2016 08:14:37 09/29/2016 09:14:22 Screening for malignant neoplasm of colon 988821052 Z12.11 Referral for a DIRECT booked colonoscop y. This patient is a healthy ASA Class 1 or 2 patient (only mild systemic disease), or a STABLE, well controlled insulin dependent diabetic. They do not have serious cardiac disease ie NM/angiopl asty within 1 year, symptomati c CHF; renal failure with CKD 4 or 5; take Coumadin, Plavix, Aggrenox, etc. Long-term drug therapy 079012617 Z79.899 Cigarette smoker 8182716 7 F17.210 Tobacco user 260197954 Z 72.0 Keep using the lozenge Mass of parotid gland 31 3958420 R22.1 Needle bx was inconclusi ve and pt is scheduled for surgery. To continue with pain meds as needed. Will add gabapentin and plan on follow-up in 4 weeks for this. Adult heal th examination 161049833 Z00.00 see Risk Assessment and Lifestyle Change Counseling section above Counseling 748207106 Z71 .9 Impaired f asting glycemia 268492661 R73.01 Glucose 101 but A1C stable. Will order repeat labwork with f/u 6 months. Benign ess ential hypertension 7742066 I10 Blood pressures at goal (<140/90). To continue with current meds with routine follow-up. [id number] Marcial Newsome , [facility], OFFICE [address] [place] [address] 84726-501 6 11/05/2016 09:48:09 11/05/2016 10:23:34 Cigarette smoker 38175735 F17.210 Tobacco user 971520020 Z 72.0 Keep using the lozenge Mass of parotid gland 31 5330622 R22.1 Pt having surgery at the end of the month. Unclear if the gabapentin is helping but may be causing restless legs. Wheezing 63308941 R06.2 Currently smoking - working on quitting. [id number] Shannan Mckeon LPN , [facility], OFFICE [address] [place] [address] 6 12/24/2016 08:04:07 12/24/2016 08:46:44 Cigarette smoker 48739603 F17.210 Tobacco user 518201612 Z 72.0 Keep using the lozenge Mass of parotid gland 31 6217854 R22.1 Pt having surgery at the end of the month. Unclear if the gabapentin is helping but may be causing restless legs. Active or passive immunization 636845695 Z23 [id number] Marcial JAIN, [facility], OFFICE [address] [place] [address]31[address] 6 01/21/2017 08:51:11 01/21/2017 09:41:23 Cigarette smoker 12410335 F17.210 Tobacco user 513719596 Z 72.0 Pain in face 49750794 R5 1 Ongoing pain in face despite removal of mass, although improving. Will treat for nerve pain but also get neurology input on ?trigemina l nerve involvemen t. Plan on follow-up again in 4-6 weeks [id number] Marcial JAIN, [facility] OFFICE [address] [place] [address] 6 02/23/2017 15:06:14 02/23/2017 16:22:46 Cigarette smoker 28974235 F17.210 Tobacco user 420605226 Z 72.0 Allergic rhinitis 198682 04 J30.9 Plan as below. 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 Unclear if pt may have ?trigemina l nerve involvemen t. Will bump the gabapentin to 600mg 3x daily. Will treat for nerve pain but also get neurology input on ?trigemina l nerve involvemen t. Plan on follow-up again in 4-6 weeks. [id number] Marcial Newsome , [facility] OFFICE [address] [place] [address] 63266[address] 6 04/07/2017 14:33:18 04/07/2017 15:43:40 Cigarette smoker 84972160 F17.210 Tobacco user 275143642 Z 72.0 Atypical facial pain 713 55382 G50.1 Ongoing pain in face despite removal of mass. Question if pt may have ?trigemina l nerve involvemen t. Pt is open to increase in medication at this point in time. Would recommend a trial of the gabapentin 900mg in the midday utilizing leftover 300mg (with 600mg in AM and PM) and see if this helps substantia lly. Will also find out what is happening with neurology. [id number] MD SUSY Fall, [facility], OFFICE [address] [place] [address] 13351-[address] 6 05/18/2017 09:10:20 05/18/2017 12:13:55 Cigarette smoker 29553124 F17.210 Tobacco user 613895909 Z 72.0 Acute maxi llary sinusitis 27747759 J01.00 [id number] Marcial JAIN, [facility] OFFICE [address] [place] [address] 27323[address]751 6 06/09/2017 13:33:12 06/09/2017 14:02:57 Cigarette smoker 54852429 F17.210 Tobacco user 493700006 Z 72.0 Hand pain 48397368 M79.6 43 Will start with basic labwork. To keep rheum appointmen t 07/14. To keep using aspercreme regularly. [id number] Marcial JAIN, [facility], OFF[facility] [address] [place] [address] 07/15/2017 09:22:12 07/15/2017 10:09:20 Cigarette smoker 28986355 F17.210 Pt doesn't feel like she would like to talk to Sam right now; has a quit date of September 03. Tobacco user 568890918 Z 72.0 Benign ess ential hypertension 5339777 I10 Blood pressures at goal (<140/90). To continue with current meds with routine follow-up. Anxiety state 996610719 F41.1 Pt is doing okay at this point in time. Hyperlipidemia 46307372 E78.5 ASCVD risk is 11.8% on last check. Pt to go for repeat bloodwork prior to wellness in September Impaired f asting glycemia 828255391 R73.01 [id number] Marcial JAIN, [facility], OFF[facility] [address] [place] [address] 11/22/2017 08:55:55 11/22/2017 09:46:37 Cigarette smoker 94321374 F17.210 Pt feels it's her only comfort right now; she understand s it's raising her risk of heart disease. Tobacco user 758835043 Z 72.0 Benign ess ential hypertension 4318348 I10 Blood pressures at goal (<140/90). To continue with current meds with routine follow-up. Anxiety state 128602002 F41.1 Pt roughly stable at this point in time. Hyperlipidemia 30317407 E78.5 ASCVD risk is 11.4% on last check. Risk would be 4.8% if she didn't smoke. Pt would rather not take a statin. Impaired f asting glycemia 191813854 R73.01 [id number] Marcial JAIN, [facility], OFFICE [address] [place] [address] 6 03/30/2018 15:27:44 03/30/2018 17:02:33 Adult health examination 132245215 Z00.00 see Risk Assessment and Lifestyle Change Counseling section above Counseling 115734488 Z71 .9 Depression screening 171 178472 Z13.89 depression screening tool administer ed, entered into emr, scored and discussed, time greater than 7.5 minutes Tobacco user 402399139 Z 72.0 Hearing loss 90734203 H9 1.90 Will refer; pt to call for appointmen t. Major depr ession, melancholic type 034821889 F32.9 And nerve pain. Will start with duloxetine . Scar neuroma 187941936 D 36.10 Gabapentin is less effective than would like. Will start on duloxetine . Screening for malignant neoplasm of colon 492644558 Z12.11 Referral for a DIRECT booked colonoscop y. This patient is a healthy ASA Class 1 or 2 patient (only mild systemic disease), or a STABLE, well controlled insulin dependent diabetic. They do not have serious cardiac disease ie NM/angiopl asty within 1 year, symptomati c CHF; renal failure with CKD 4 or 5; take Coumadin, Plavix, Aggrenox, etc. Benign ess ential hypertension 4761602 I10 Blood pressures at goal (<140/90). To continue with current meds with routine follow-up. [id number] Marcial JAIN, [facility], OFF[address] [place] [address] 05/25/2018 11:31:29 05/25/2018 12:21:55 Cigarette smoker 33925831 F17.210 Pt is contemplat ria. Has informatio n for Sam Garay. Tobacco user 213796237 Z 72.0 Major depr ession, melancholic type 526534972 F32.9 And nerve pain. Duloxetine is helping a great deal with mood. Nerve pain hasn't really changed much. Joint pain has improved dramatical ly. Will recheck in August. Scar neuroma 254027462 D 36.10 Gabapentin 300mg 3x daily is helpful. Duloxetine didn't add much, but helping in other ways. Benign ess ential hypertension 7260958 I10 Blood pressures at goal (<140/90). To continue with current meds with routine follow-up in 4 months Anxiety state 702429147 F41.1 Pt roughly stable at this point in time. [id number] Marcial JAIN, [facility], OFF[address] [place] [address] 09/21/2018 09:06:58 09/21/2018 10:02:07 Hyperlipidemia 16903530 E78.5 ASCVD risk is 7.7% on last check. Risk would be much lower if she didn't smoke. Pt would rather not take a statin. Tobacco user 950181005 Z 72.0 Cigarette smoker 9067989 7 F17.210 Pt is contemplat ria. Thinks she can keep it down to 10 per day, which is at least good. Has informatio n for Sam Garay. Eruption 984567667 R21 Hand pain 57232552 M79.6 43 Please make appointmen t with Dr. Patrick to discuss further the hand pain. Benign ess ential hypertension 9064608 I10 Blood pressures at goal (<140/90). To continue with current meds with routine follow-up in 6 months [id number] Marcial Newsome , [facility], OFF[address] [place] [address] 10/05/2018 13:11:07 10/05/2018 16:17:34 Cigarette smoker 29671382 F17.210 Pt is contemplat ria. Doing a really good job keeping it down to 10/day. Has informatio n for Sam Garay. Tobacco user 847811302 Z 72.0 Eruption 115604730 R21 Resolved. Question if something in the winter. Recommenda tion as below. Jaw pain 028462651 R68.8 4 Due to TMJ; to continue with bite guards and tizanidine for now; further recommenda tions as below. [id number] MD SUSY Aguilar, [facility], OFF[address] [place] [address] 10/24/2018 09:46:08 10/24/2018 15:09:33 Cigarette smoker 73604790 F17.210 Discussed cessation and she is not interested in further tapering at this time. Red eye 71175484 H11.439 58 year old with red eye and discomfort . Concerned about scleritis and I called opthomolog ist who will see her today for a full exam for best diagnosis. [id number] Rupali Spivey, OD [facility], [facility] [address] [place] [address] 10/24/2018 10:49:30 10/24/2018 11:08:49 Viral conjunctivitis 05776995 B30.9 pt ed. recommend PFAT q 1-2 hr. good hygeine/[place] washing. RTC if pain or loss of vision occur. RTC in 3-4 weeks for CEE, macular OCT, and 10-2 VF for plaquenil use. Tobacco user 956306375 Z 72.0 [id number] Rupali Spivey, OD [facility], [address] [address] 12/06/2018 11:17:24 12/06/2018 12:49:09 Long-term drug therapy 419904158 Z79.899 plaquenil for arthritis. followed by rheumatolo gy. exam and baseline OCT shows no evidence of plaquenil macular toxicity. pt ed. return for HVF 10-2ss. Myopia 71908154 H52.13 Arthritis 2406503 M19.90 Dry eyes 974287772 H04.1 29 recommend AT 2-4 x day prn. Tobacco user 051780970 Z 72.0 Macular drusen 189541089 H35.363 baseline photo and OCT today. pt ed. recommend UV protection . advised to quit smoking. discussed green leafy veggies. monitor 1 yr or sooner with any vision changes [id number] Rupali Spivey, OD [facility], [address] [address] 01/31/2019 15:41:40 02/01/2019 11:15:39 Long-term drug therapy 539890315 Z79.899 plaquenil for arthritis. followed by rheumatolo gy. 12/06/18 exam and baseline OCT show no evidence of plaquenil macular toxicity. Visual field today was unreliable and should be repeated in 3 months. Arthritis 9744916 M19.90 [id number] Marcial Newsome FP, [facility], OFFICE [address] [place] [address] 04/04/2019 09:32:37 04/04/2019 10:31:51 Adult health examination 067469962 Z00.00 see Risk Assessment and Lifestyle Change Counseling section above Counseling 458033032 Z71 .9 Depression screening 171 687489 Z13.89 depression screening tool administer ed, entered into emr, scored and discussed, time greater than 7.5 minutes Wheezing 45630419 R06.2 Currently smoking - working on keeping this to a minimum. Screening mammography 24 481049 Z12.31 Screening for malignant neoplasm of cervix 989372851 Z12.4 LMP around age 52 Screening for malignant neoplasm of colon 945243183 Z12.11 Referral for a DIRECT booked colonoscop y. This patient is a healthy ASA Class 1 or 2 patient (only mild systemic disease), or a STABLE, well controlled insulin dependent diabetic. They do not have serious cardiac disease ie NM/angiopl asty within 1 year, symptomati c CHF; renal failure with CKD 4 or 5; take Coumadin, Plavix, Aggrenox, etc. Cigarette smoker 7856254 7 F17.210 Pt is contemplat ria. Doing a really good job keeping it down to 10/day. Has informatio n for Sam Garay. Tobacco user 258520662 Z 72.0 Eruption 972389005 R21 Resolved. Question if something in the winter. Recommenda tion as below. Active or passive immunization 410917677 Z23 Impaired f asting glycemia 621667063 R73.01 Benign ess ential hypertension 0972932 I10 Blood pressures at previous goal (<140/90). New goal with SPRINT trial is <130/80. Will have pt come to BP clinic in 3-4 weeks. If still over 130/80 to start losartan Localized swelling, mass and lump, lower limb 595412064 R22.41 [id number] Marcial JAIN, [facility], [address] [place] [address] 05/29/2019 10:20:58 05/29/2019 10:53:32 Acute upper respiratory infection 06325171 J06.9 DDx includes viral syndrome, flu, COPD-like exacerbati on (tobacco-i nduced wheeze). Will check flu swab result, get CXR, consider prednisone . Fever 620701137 R50.9 Dyspnea 370542550 R06.00 [id number] Marcial JAIN, [facility], [address] [place] [address] 10/03/2019 08:11:00 10/03/2019 11:33:20 Essential hypertension 27612528 I10 Blood pressures usually at goal (<130/80). Unable to test right now. Will plan on trying to send cuff for patient. Cigarette smoker 0892803 7 F17.210 Pt is contemplat ria. Doing a really good job keeping it down to 10/day. Has informatio n for Sam Garay. Tobacco user 250484246 Z 72.0 Screening mammography 24 002944 Z12.31 Screening for malignant neoplasm of colon 075495471 Z12.11 Referral for a [employer] booked colonoscop y. This patient is a healthy ASA Class 1 or 2 patient (only mild systemic disease), or a STABLE, well controlled insulin dependent diabetic. They do not have serious cardiac disease ie NM/angiopl asty within 1 year, symptomati c CHF; renal failure with CKD 4 or 5; take Coumadin, Plavix, Aggrenox, etc. Impaired f asting glycemia 303388078 R73.01 Appears to be in remission. Will monitor. At [facility] risk for cardiovascular event 892397879 Z91.89 Elevated primarily due to smoking ;pt dislikes the idea of statins. She is planning on adjusting diet. Will repeat in 6 months. [id number] Marcial Newsome , [facility], [address] [place] [address] 03/19/2020 08:55:00 03/20/2020 16:20:56 Essential hypertension 45139253 I10 Blood pressures usually at goal (<130/80). Unable to test right now. Will plan on trying to send cuff for patient. Cigarette smoker 5635696 7 F17.210 Pt is contemplat ria and trying to keep this down to a stable level. Tobacco user 034630116 Z 72.0 Impaired f asting glycemia 782615745 R73.01 Appears to be in remission. Will monitor with recheck next month. Eruption 464701312 R21 Resolved. Question if something in the winter. Recommenda tion as below. Anxiety 84707791 F41.9 Will have pt increase to duloxetine 60mg and start with therapist for additional support. [id number] Marcial JAIN, [facility], [address] [place] [address] 09/04/2020 13:39:18 09/04/2020 14:24:24 Benign essential hypertension 2726772 I10 Blood pressures at goal <130/80. To continue with current medication s with routine follow-up. Hyperlipidemia 97957548 E78.5 ASCVD risk is 7.7% on last check. Risk would be much lower if she didn't smoke. Pt would rather not take a statin. Cigarette smoker 4307776 7 F17.210 Pt is contemplat ria and trying to keep this down to a stable level. Tobacco user 915788360 Z 72.0 Anxiety state 967673946 F41.1 Pt roughly stable at this point in time. Screening mammography 24 200989 Z12.31 Screening for malignant neoplasm of colon 307307034 Z12.11 Referral for a [employer] booked colonoscop y. This patient is a healthy ASA Class 1 or 2 patient (only mild systemic disease), or a STABLE, well controlled insulin dependent diabetic. They do not have serious cardiac disease ie NM/angiopl asty within 1 year, symptomati c CHF; renal failure with CKD 4 or 5; take Coumadin, Plavix, Aggrenox, etc. Venous varices 696251134 I83.[address] Gross Wheezing 88887751 R06.2 Currently smoking - working on keeping this to a minimum. Anxiety 70896010 F41.9 Pt had been doing well on duloxetine 60mg but then insurance wasn't paying at an affordable rate. Pt's pain is worse since tapering off. Still with some bad days. Would try to restart slowly with Suspected COVID-19 12844 4004 Z20.828 Last spring. Pt requesting antibody test. Will check. Impaired f asting glycemia 870905506 R73.01 Appears to be in remission. Will monitor with recheck next month. [id number] Marcial Newsome , [facility], [address] [place] [address] 10/23/2020 12:09:27 10/23/2020 12:56:48 Anxiety state 874588230 F41.1 Pt roughly stable at this point in time. Adding duloxetine back worsened insomnia which worsened mood. To continue on lorazepam; pt aware of risks/bene fits of this. Cigarette smoker 0780442 7 F17.210 Pt is contemplat ria and trying to keep this down to a stable level. Tobacco user 024576966 Z 72.0 Scar neuroma 399764750 D 36.10 Gabapentin 300mg 3x daily is helpful. Duloxetine was helping with pain but causing significan t insomnia, so pt would rather stay off of it and not try to replace this. Benign ess ential hypertension 8494326 I10 Blood pressures at goal <130/80. To continue with current medication s with routine follow-up. Hyperlipidemia 78537107 E78.5 ASCVD risk is 11% on last check. Risk would be much lower if she didn't smoke. Pt would rather not take a statin. Impaired f asting glycemia 488499051 R73.01 Appears to be in remission. Will monitor with recheck next month. [id number] Marcial JAIN, [facility], [address] [place] [address] 03/03/2021 11:21:36 03/03/2021 12:22:24 Benign essential hypertension 9569070 I10 Blood pressures at goal <130/80. To continue with current medication s with routine follow-up. Hyperlipidemia 35851216 E78.5 ASCVD risk is 9.8% on last check. Pt would rather not take a statin. She is trying to keep the cigarettes down. Cigarette smoker 2275459 7 F17.210 Pt is contemplat ria and trying to keep this down to a stable level. Scar neuroma 767051171 D 36.10 Gabapentin 600mg BID. Pt will discuss with prescriber Anxiety state 364039884 F41.1 Pt roughly stable at this point in time. Adding duloxetine back worsened insomnia which worsened mood. To continue on lorazepam; pt aware of risks/bene fits of this. Impaired f asting glycemia 043089413 R73.01 Appears to be in remission. Will monito regularly. Screening mammography 24 817372 Z12.31 Screening for malignant neoplasm of colon 343385782 Z12.11 Referral for a [employer] booked colonoscop y. This patient is a healthy ASA Class 1 or 2 patient (only mild systemic disease), or a STABLE, well controlled insulin dependent diabetic. They do not have serious cardiac disease ie NM/angiopl asty within 1 year, symptomati c CHF; renal failure with CKD 4 or 5; take Coumadin, Plavix, Aggrenox, etc. [id number] Marcial JAIN, [facility], [address] [place] [address] 05/27/2021 08:20:20 05/27/2021 09:24:45 Adult health examination 872396038 Z00.00 see Risk Assessment and Lifestyle Change Counseling section above Counseling 877862967 Z71 .9 including cardiovasc ular risk reduction counseling Depression screening 171 869066 Z13.31 depression screening tool administer ed, entered into emr, scored and discussed, time greater than 7.5 minutes, no depression Screening for alcohol abuse 082620569 Z13.39 Cigarette smoker 6615141 7 F17.210 Pt is trying to keep this down. Quitting is on the table. She will let me know if she wants help. Tobacco user 498152080 Z 72.0 Wheezing 08487116 R06.2 Currently smoking - working on keeping this to a minimum. Eruption 761147537 R21 Controlled with steroid cream in winter; pt requesting to transfer script to us from Dr. Kruse. Told her to call for refills when needed. Mixed hyperlipidemia 267 759683 E78.2 Pt working on diet; exercise is hard due to arthritis. Screening for malignant neoplasm of colon 169805912 Z12.11 Anxious about colonoscop y. Will at least do stool cards. Benign ess ential hypertension 8578734 I10 Blood pressures at goal <130/80. To continue with current medication s with routine follow-up. Hyperlipidemia 39235903 E78.5 ASCVD risk eleved primarily due to smoking. She is hoping to quit at some point in the future. Anxiety state 120542924 F41.1 Pt roughly stable at this point in time. Adding duloxetine back worsened insomnia which worsened mood. To continue on lorazepam alone; pt aware of risks/bene fits of this. Impaired f asting glycemia 250802302 R73.01 Appears to be in remission. Will monitor regularly. Scar neuroma 064764726 D 36.10 Gabapentin 600mg BID. Pt will discuss with prescriber [id number] Marcial Newsome , [facility], [address] [place] [address] 08/05/2021 07:59:06 08/05/2021 08:35:12 Essential hypertension 24467344 I10 Blood pressures usually at goal (<130/80). Unable to test right now. Will plan on trying to send cuff for patient. Anxiety state 919850141 F41.1 Pt roughly stable at this point in time. Poor response to SSRI/SNRI class. To continue on lorazepam alone; pt aware of risks/bene fits of this. Tobacco user 153819519 Z 72.0 Active or passive immunization 590142782 Z23 covid- declinessh ingles- reminded Screening for malignant neoplasm of colon 144408231 Z12.11 Anxious about colonoscop y. Will at least do stool cards. Reminded to bring stool cards in [id number] Marcial Newsome , [facility], OFFICE [address] [place] [address] 11/10/2021 09:23:57 11/10/2021 10:06:33 Tobacco user 344591366 Z72.0 Active or passive immunization 364232651 Z23 covid- declinessh ingles- declined Inflammato ry polyarthropathy 526487629 M06.4 Will refer to new rheumatolo gist. Pain of bi lateral hands 0881616789 1829007 M79.641 M79.642 With possible Dupetryn's contractur es. Plan on hand surgery evaluation . Eruption 976614074 R21 Controlled with steroid cream in winter; med refilled. Wheezing 27431749 R06.2 Currently smoking - working on keeping this to a minimum. Anxiety 04694261 F41.1 Tolerating lorazepam; awarek of risk/benef it. [id number] Rupali Spivey, OD [facility], [address] [address] 01/13/2022 10:52:37 01/13/2022 12:19:31 Dry eyes 640628601 H04.129 recommend AT 2-4 x day prn. Regular astigmatism 6890 5002 H52.223 Long-term drug therapy 224696518 Z79.899 plaquenil for arthritis. followed by rheumatolo gy. exam and OCT shows no evidence of plaquenil macular toxicity. pt ed. return for HVF 10-2ss. Arthritis 0113177 M19.90 Tobacco user 317777621 Z 72.0 Macular drusen 658526835 H35.363 mild OU, stable. no SRF on OCT. pt ed. recommend UV protection . advised to quit smoking. discussed green leafy veggies. monitor 1 yr or sooner with any vision changes [id number] Rupali Spivey, OD [facility], [facility] [address] [place] [address] 02/04/2022 14:24:23 02/17/2022 14:46:53 Long-term drug therapy 496457320 Z79.899 plaquenil for arthritis. followed by rheumatolo gy. VF wnl OU. Arthritis 7836940 M19.90 [id number] Marcial Newsome , [facility], [address] [place] [address] 08/26/2022 09:36:02 08/26/2022 10:55:05 Anxiety state 834728973 F41.1 Pt roughly stable at this point in time. Poor response to SSRI/SNRI class. To continue on lorazepam alone; pt aware of risks/bene fits of this. Adult heal th examination 823870386 Z00.00 see Risk Assessment and Lifestyle Change Counseling section above Depression screening 171 281929 Z13.31 depression screening tool administer ed Screening for alcohol abuse 095858281 Z13.39 Alcohol use screening tool administer ed Mixed hyperlipidemia 267 734625 E78.2 Cholestero l is at goal Essential hypertension 97556877 I10 Blood pressures usually at goal (<130/80). Unable to test right now. Will plan on trying to send cuff for patient. Tobacco user 705328100 Z 72.0 We discussed your smoking today for more than 3 minutes. Cigarette use is the leading cause of preventabl e disease, disability , and in the [place]. We talked about tools and medication s available to help you in smoking cessation. We discussed utilizing our smoking cessation assistant tennis coach and online resources. Your personal goal: Keeping the cigarettes from increasing . Counseling 117468782 Z71 .9 including cardiovasc ular risk reduction counseling Cigarette smoker 3602028 7 F17.210 Pt is trying to keep this down. Quitting is on the table. She will let me know if she wants help. Eruption 337568583 R21 Pt using script cyclically . Screening for malignant neoplasm of colon 836765722 Z12.11 Discussed; pt open to cologuard. Benign ess ential hypertension 5691051 I10 Blood pressures at goal <130/80. To continue with current medication s with routine follow-up. Hyperlipidemia 43420371 E78.5 ASCVD risk eleved primarily due to smoking. She is hoping to quit at some point in the future. Impaired f asting glycemia 204033304 R73.01 Appears to be in remission. Will monitor regularly. Scar neuroma 103714259 D 36.10 Pt is s/p gabapentin and is doing well off. Will monitor. Active or passive immunization 493625047 Z23 Declines vaccines Long-term current use of drug therapy 649199760 Z79.899 Ex-smoker 1644738 Z87.89 1 Counseled by member of primary health care team 759824442 Z71.9 Cardiovas ulnd risk reduction was discussed including benefits and risks of aspirin, exercise goals, healthy eating and healthy weight . Discussion greater than 7.5 minutes. [id number] Rupali Spivey, OD [facility], [address] [address] 01/13/2023 08:24:24 02/02/2023 10:02:06 Long-term drug therapy 699955737 Z79.899 plaquenil for inflammato ry arthritis. followed by rheumatolo gy. VF and OCT do not show signs of plaquenil toxicity OU. Arthritis 7287293 M19.90 [id number] Rupali Spivey, OD [facility], [address] [address] 01/15/2023 10:35:20 01/15/2023 11:38:42 Dry eyes 157813136 H04.129 recommend Systane Ultra AT 2-4 x day prn. Regular astigmatism 6890 5002 H52.223 Long-term drug therapy 089337859 Z79.899 plaquenil for inflammato ry arthritis. followed by rheumatolo gy. VF and OCT do not show signs of plaquenil toxicity OU. Arthritis 2921650 M19.90 Tobacco user 559945003 Z 72.0 Macular drusen 966928294 H35.363 mild OU, stable. no SRF on OCT. pt ed. recommend UV protection . advised to quit smoking. discussed green leafy veggies. monitor 1 yr or sooner with any vision changes [id number] Marcial Newsome , [facility], [address] [place] [address] 03/02/2023 08:10:44 03/02/2023 09:12:24 Active or passive immunization 734239481 Z23 Declines vaccines Screening mammography 24 381563 Z12.31 Screening for malignant neoplasm of colon 498493723 Z12.11 Pt has cologuard; discussed. Cigarette smoker 3867171 7 F17.210 Pt is trying to keep this down. She will let me know if she wants help. Long-term current use of drug therapy 144731088 Z79.899 Impaired f asting glycemia 382496282 R73.01 A1C is drifting up. Will recheck in 3 months. Health Concerns Section Related Observation LastModified by Organization Detai ls LastModified Time None Recorded Concern Status LastModified by Organization Details LastModified Time None Recorded Advance Directives Directive None Recorded Payers Encounter Date Sequence Insurance Name Policy Number Policy Pina Covered Member ID Pina Member ID Guarantor Name 02/04/2022 1 [place] PRIOR TO 2022 - [employer] (MEDICAID) Elida Wagner [id number] Elida Wagner 08/26/2022 1 [employer] - DOS ON OR AFTER 2022 - [employer] (MEDICAID REPLACEMENT - HMO) Elida Wagner [id number] Elida Wagner 01/13/2023 1 [employer] - DOS ON OR AFTER 2022 - [employer] (MEDICAID REPLACEMENT - HMO) Elida Wagner [id number] Elida Wagner 01/15/2023 1 [employer] - DOS ON OR AFTER 2022 - [employer] (MEDICAID REPLACEMENT - HMO) Elida Wagner [id number] Elida Wagner 03/02/2023 1 [employer] - DOS ON OR AFTER 2022 - [employer] (MEDICAID REPLACEMENT - HMO) Elida Wagner [id number] Elida Wagner Notes Date Note Type Note Provider Name and Address Organization Details Recorded Time 3 text/htm l Physical Exam/FemaleReported bypatient.PHAPatient is here for a Wellness Visit. She describes her health status as good. Patient's health is the same as last year.Risk Assessment and Lifestyle Change Counseling 50-64Reported bypatient.Coronary Artery Disease Risk Assessment:No Family history of coronary artery disease; No personal history of diabetes; Patient has higher than average risk for coronary artery disease Breast Cancer Risk Assessment:No family history of breast cancer; No history of breast cancer or dcis; Patient has low risk for breast cancer Colon Cancer Risk Assessment:No family history of colon polyps or cancer; No history of adenomatous colon polyps Lung Cancer Risk Assessment:Has used cigarettes Diet:Counseled about eating a diet low in trans and saturated fats and high in fiber, fruits and vegetables Exercise counseling:Discussed the importance of daily physical activityVMG HyperlipidemiaReported bypatient.Duration:chronic Control:improved since last visit (LDL worsened, HDL improved, TG's improved); LDL has been 131-159, goal is (goal is <100 with impaired FBS, otherwise <130 with HTNTen year risk 9.8% with smoking) Compliance:compliant with diet (started working with a work-related support group) Barriers to Careunder stress; pt is reluctant to take simvastatin Context:Smoker; No ischemic heart disease; No peripheral vascular disease ([id number]); No diabetes; No carotid artery stenosis; abnormal blood sugar Associated Symptoms:normal liver function test; no muscle pain; no fatigue; no chest discomfort; no dyspnea; no change in exercise capacityVMG HypertensionReported bypatient.Context:No ischemic heart disease; No kidney disease; No history of CVA; No congestive heart failure; No history of transient ischemic attacks; No peripheral vascular disease; No history of diabetes Control:Patient understands medications are to lower blood pressure Compliance:Compliant with medications Barriers to Careabsence of motivation; anxiety Self Care:not doing home bp monitoring Associated Symptoms:No chest pain; No shortness of breath; No edema; No fatigue; No palpitations; No decline in exercise capacity; No snoring Ability to Manage Self CareOn how confident the patient feels in ability to self manage condition the patient selects 10 with 10 being very confident and 1 being very low confidence; Patient feels very confident in ability to self manage conditiona/vmg-smoking [id number] bypatient.ImportanceOn a scale of 1-10 with 1 being not important and 10 being very important the patient rates importance of stopping smoking as 8 ConfidenceOn a scale of 1-10 with 1 being not confident and 10 being very confident the patient rates confidence on stopping smoking as 5 Readiness to quit smokingOn a scale of 1-10 with 1 being not ready and 10 being very ready the patient rates readiness to stop smoking as 6 (Pt states 'I can't even talk about my stress or I'd start to cry') Physiological Dependence/Health RiskCurrently smoking (10-15 cig/day); Patient has first cigarette greater than 30 minutes after awakening; Patient has tried to stop smoking 3 times. Medication AssessmentHas used Patch in the past (headache (even at lower doses)); Has used Gum in the past; Has used Chantix in the past (headaches)Notes:Fluctuate s with stress; she doesn't feel like she's in a place to quit and wants to keep it down. Pt comes in today for wellness visit. She is currently using betamethasone for the rash on her back (from Dr. Kruse). This works well but she can't use it continuously. Pt also c/o scar neuroma on her face. She is no longer on gabapentin for this. The pain is present, but manageable; she is less foggy off the gabapentin. Pt c/o ongoing athritis. She is seeing her research scientist regularly for this. She is on hydroxychloroquine. Pt c/o anxiety and depression. She is still taking lorazepam BID. She hasn't found SSRI's (specifically duloxetine) helpful and is not taking those right now. Marcial Newsome [address] [place], [id number], [facility] 08/26/2022 11:03:49 3 text/htm l snf use of high risk med plaquenil 200 mg PO BID for inflammatory arthritis (primary) no reported scotomas. Rupali Spivey OD [address] [place], [id number], [facility] 02/12/2023 18:16:58 3 text/htm l VMG HyperlipidemiaReported bypatient.Duration:chronic Control:LDL has been 131-159, goal is (in 09/2015, pt hasn't had labs done.) Compliance:compliant with diet (started working with a work-related support group) Barriers to Careunder stress Context:Smoker; No ischemic heart disease; No peripheral vascular disease (14871); No diabetes; No carotid artery stenosis; abnormal blood sugar Associated Symptoms:normal liver function test; no muscle pain; no fatigue; no chest discomfort; no dyspnea; no change in exercise capacityVMG HypertensionReported bypatient.Context:No ischemic heart disease; No kidney disease; No history of CVA; No congestive heart failure; No history of transient ischemic attacks; No peripheral vascular disease; No history of diabetes Control:Patient understands medications are to lower blood pressure Compliance:Compliant with medications Barriers to Careabsence of motivation; anxiety Self Care:not doing home bp monitoring Associated Symptoms:No chest pain; No shortness of breath; No edema; No fatigue; No palpitations; No decline in exercise capacity; No snoring Ability to Manage Self CareOn how confident the patient feels in ability to self manage condition the patient selects 10 with 10 being very confident and 1 being very low confidence; Patient feels very confident in ability to self manage conditiona/vmg-smoking [id number] bypatient.ImportanceOn a scale of 1-10 with 1 being not important and 10 being very important the patient rates importance of stopping smoking as 8 ConfidenceOn a scale of 1-10 with 1 being not confident and 10 being very confident the patient rates confidence on stopping smoking as 5 Readiness to quit smokingOn a scale of 1-10 with 1 being not ready and 10 being very ready the patient rates readiness to stop smoking as 6 (getting ready) Physiological Dependence/Health RiskCurrently smoking 10 cigarettes per day (10 cig/day); Patient has first cigarette greater than 30 minutes after awakening (up to 10 cig/day, but varies - not always); Patient has tried to stop smoking 3 times. Medication AssessmentHas used Patch in the past (headache (even at lower doses)); Has used Gum in the past; Has used Chantix in the past (headaches)Notes:Pt states I want to quit, but I'm under stress and it's almost my only comfort. Pt comes in today for follow-up impaired FBS and cholesterol. A1C is drifting up compared to last check. Pt cut down on ice cream and cheetos starting in December, but since then she's been watching things a bit better. Pt notes she and her boyfriend got at the end of December in [place] and they drove all over the [place] and really enjoyed themselves. Pt also is seeing rheumatology; she is on hydroxycholorquine 200mg which has helped a little bit with the hands (or pt thinks it might be the tumeric). 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 She just has to wear a scarf to shield it from the cold. Finally, pt c/o anxiety. She feels that she's taking the lorazepam regularly at this point with everything going on in her life but she feels that helps overall. Marcial Newsome [address] [place] [address], [place], [phone], [facility] 03/02/2023 09:07:36 OBGyn Episode No OBEpisode recorded.
== END 2024-06-01 09:50 | disposition home or self-care (01) ==
PROVIDERS: PCP Family Medicine; Visit Provider Internal Medicine
DX: I10 Essential (primary) hypertension (principal); M06.9 Rheumatoid arthritis, unspecified; J44.9 Chronic obstructive pulmonary disease, unspecified; E78.00 Pure hypercholesterolemia, unspecified; I25.2 Old myocardial infarction; E66.3 Overweight; Z68.27 Body mass index [BMI] 27.0-27.9, adult; M15.0 Primary generalized (osteo)arthritis; F41.9 Anxiety disorder, unspecified; F17.200 Nicotine dependence, unspecified, uncomplicated

== ENCOUNTER → 2024-06-01 08:33 | Outpatient (BNVA) | payer MEDICARE, SELFPAY | PROVIDERS: PCP Family Medicine; Visit Provider Internal Medicine | DX: I10 Essential (primary) hypertension (principal); E78.00 Pure hypercholesterolemia, unspecified; I21.4 Non-ST elevation (NSTEMI) myocardial infarction; J44.9 Chronic obstructive pulmonary disease, unspecified; M15.0 Primary generalized (osteo)arthritis; M06.9 Rheumatoid arthritis, unspecified; F41.9 Anxiety disorder, unspecified; E66.3 Overweight; F17.200 Nicotine dependence, unspecified, uncomplicated; Z71.3 Dietary counseling and surveillance | CPT/HCPCS: 96127 ==

== ENCOUNTER 2024-08-23 06:36 | Outpatient (REF) | payer MEDICARE, SELFPAY ==
[2024-08-23 06:51] LABS: MANUAL DIFF FLAG NO
[2024-08-23 07:37] LABS: Basophils Absolute Auto 0.1 X10*3/uL (0.0-0.2); Basophils Percent Auto 0.8 % (0-2); Eosinophils Absolute Auto 0.3 X10*3/uL (0.0-0.4); Eosinophils Percent Auto 3.5 % (0-4); Hematocrit 42.4 % (37.0-47.0); Imm Gran Abs Auto 0.03 X10*3/uL (0.00-0.03); Imm Gran Pct Auto 0.4 % (0.0-0.4); Lymphocytes Absolute Auto 2.6 X10*3/uL (1.2-4.9); Lymphocytes Percent Auto 34.2 % (20-40); Mean Corpuscular Hemoglobin 30.2 pg (27.0-33.0); Mean Corpuscular Volume 91.4 fL (80.0-98.0); Mean Platelet Volume 10.9 fL (9.4-12.3); Monocytes Absolute Auto 0.6 X10*3/uL (0.1-1.2); Monocytes Percent Auto 8.1 % (2-11); Neutrophils Absolute Auto 4.1 x10*3/uL (2.0-8.3); Platelet Count 196 X10*3/uL (160-400); Red Blood Count 4.64 X10*6/uL (4.20-5.50); Red Cell Distribution Width 13.3 % (11.0-16.0); White Blood Count 7.7 X10*3/uL (4.8-10.8)
[2024-08-23 07:58] LABS: Rheumatoid Factor < 13.0 IU/mL (<15.0)
[2024-08-23 08:06] LABS: Alanine Aminotransferase 17 U/L (0-31); Albumin Level 4.1 g/dL (3.5-5.0); Alkaline Phosphatase 88 U/L (39-117); Anion Gap 12 (12-20); Aspartate Amino Transferase 24 U/L (5-31); Bilirubin Total 0.4 mg/dL (0.0-1.0); Blood Urea Nitrogen 12 mg/dL (9-16); C Reactive Protein 0.35 mg/dL (< or = 0.50); Calcium 9.3 mg/dL (8.4-10.2); Carbon Dioxide 30 mmol/L (22-29); Chloride 103 mmol/L (96-108); Cholesterol 231 mg/dL (<200); Estimated Glomerular Filt Rate > 60; Glucose Fasting 107 mg/dL (60-99); HDL Cholesterol 50 mg/dL (>40); LDL Cholesterol Calculated 156 mg/dL (<100); Potassium 4.3 mmol/L (3.3-5.1); Sodium 141 mmol/L (135-145); Total Protein 7.3 g/dL (6.5-8.0); Triglycerides 129 mg/dL (<150)
[2024-08-23 08:26] LABS: Erythrocyte Sedimentation Rate 36 MM/HR (0-20); TSH reflex Free T4 1.67 uIU/mL (0.32-4.0); Vitamin D 25-OH Total 153.3 ng/mL (>30)
[2024-08-29 13:38] LABS: Anti Nuclear Antibody Pattern Nuclear, Speckled; Anti Nuclear Antibody Screen POSITIVE (NEGATIVE); Anti Nuclear Antibody Titer 1:40 titer
== END 2024-08-23 06:37 | disposition home or self-care (01) ==
LOC: HO.LAB 06:36
PROVIDERS: PCP Internal Medicine; Visit Provider Internal Medicine
DX: D64.9 Anemia, unspecified (principal); E55.9 Vitamin D deficiency, unspecified; M06.9 Rheumatoid arthritis, unspecified; M25.50 Pain in unspecified joint; E78.00 Pure hypercholesterolemia, unspecified
CPT/HCPCS: 36415; 80053; 80061; 82306; 84443; 85025; 85652; 86038; 86039; 86140; 86431

== ENCOUNTER 2024-08-30 08:22 | Outpatient (AMB) | payer OTHER, MEDICAID, SELFPAY ==
--- NOTE | 2024-08-30 08:30 | A.OFFPC_ITS ---
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 Required: No Accompanied by: Self / Same As Patient Allergies carbamazepine Allergy (Severe, Verified 08/30/24 08:31) Hives meperidine [From DEMEROL] Allergy (Unknown, Verified 08/30/24 08:31) VOMITING Penicillins [PENICILLINS] Allergy (Unknown, Verified 08/30/24 08:31) SWELLING Sulfa (Sulfonamide Antibiotics) [SULFA (SULFONAMIDE ANTIBIOTICS)] Allergy (Unknown, Verified 08/30/24 08:31) HIVES varenicline [From CHANTIX] Allergy (Unknown, Verified 08/30/24 08:31) HEADACHES lisinopril Adverse Reaction (Mild, Verified 08/30/24 08:31) Cough Tobacco use date assessed: 08/30/24 Dental Screening Dental Screen Date: 08/30/24 Did you have a dental visit in the last 12 months?: Yes Did you have a dental problem in the last 6 months where you did not have access to dental care?: No Was dental information given to patient?: Patient has dentist HPI 3 month follow up HPI Details The patient is a 63-year-old female presenting for follow-up management of hyperlipidemia, rheumatoid arthritis, and COPD. She has a history of hyperlipidemia, which she attributes to dietary habits and has chosen not to treat with statins due to concerns about side effects. Her rheumatoid arthritis, previously managed with hydroxychloroquine, is now managed with turmeric capsules, which she finds effective for pain relief at rest. She experiences joint pain in her hands, knees, and hips, with variability based on activity and weather. In March, a cardiac catheterization showed no significant blockages, and she attributes cardiac symptoms to COPD. She continues to smoke but has reduced her intake. She is requesting medication refills for metoprolol, amlodipine, and Ventolin. [facility] Medical History Overweight (BMI 25.0-29.9) Primary osteoarthritis involving multiple joints Rheumatoid arthritis Smoker Anxiety Pure hypercholesterolemia COPD (chronic obstructive pulmonary disease) Non-ST elevation (NSTEMI) myocardial infarction Essential hypertension Surgical History History of superficial parotidectomy History of tubal ligation Social History Housing: House Patient Tobacco Use Status: Current everyday Tobacco user Cigarettes Per Day: 8 Years Smoked: 30+ e-Cigarette/Vaping Use: Never Used service: No Current occupational status: disabled Current occupation: right hand dominant Cognitive needs: No Hearing needs: No Vision needs: Yes Questionnaire PHQ-9 Over the last 2 weeks, how often have you been bothered by any of the following problems? 1. Little interest or pleasure in doing things: not at all 2. Feeling down, depressed, or hopeless: not at all 3. Trouble falling or staying asleep, or sleeping too much: not at all 4. Feeling tired or having little energy: not at all 5. Poor appetite or overeating: not at all 6. Feeling bad about yourself - or that you are a failure or have let yourself or your family down: not at all 7. Trouble concentrating on things, such as reading the newspaper or watching television: not at all 8. Moving or speaking so slowly that other people could have noticed. Or the opposite - being so fidgety or restless that you have been moving around a lot more than usual: not at all 9. Thoughts that you would be better off or of hurting yourself in some way: not at all Total score: 0 Depression Screening Interpretation: Negative Depression Screening Done: Yes Source: Developed by Drs. Xu Garcia, Heather Riddle, Rio Sun and colleagues, with an educational anisa from [employer]. Thrive Questionnaire Date Thrive assessed: 08/30/24 I am a: Patient What is your living situation today?: I have a steady place to live Within the past 12 months, did the food you bought not last and you didn't have the money to get more?: Never true Within the past 12 months, did you worry whether your food would run out before you got money to buy more?: Sometimes True Do you have trouble paying for medicines?: No Do you have trouble getting transportation to medical appointments?: No Do you have trouble paying your heating and electricity bill?: No Do you have trouble taking care of your child, family member or friend?: No Do you have trouble with day-to-day activities such as bathing, preparing meals, shopping, managing finances, etc.?: Yes Are you currently unemployed and looking for a job?: I choose not to answer this question Are you interested in more education?: No Please select the resources that you would like help with: None Currently or been in a relationship where the following occur: No concerns reported THRIVE Score: 1 AUDIT C Alcohol Use Questionnaire (AUDIT-C) 1. How often do you have a drink containing alcohol?: Never 3. How often do you have six or more drinks on one occasion?: Never Total Score: 0 Score Reviewed/Action Taken: Yes SUSANA-7 AMB Questionnaire SUSANA-7 Date SUSANA - 7 assessed: 08/30/24 Feeling nervous, anxious, or on edge: 1 = Several days Not being able to stop or control worryin = Not at all Worrying too much about different things: 0 = Not at all Trouble relaxin = Several days Being so restless that it is hard to sit still: 1 = Several days Becoming easily annoyed or irritable: 0 = Not at all Feeling afraid as if something awful might happen: 0 = Not at all Total SUSANA-7 score (0-4 normal; 5-9 mild; 10-14 moderate; 15-21 severe): 3 Source: Developed by Drs. Xu Garcia, Heather Riddle, Rio Sun and colleagues, with an educational anisa from [employer]. Review of Systems Const Denies headache(s) Eyes Denies loss of vision ENT Denies vertigo, Denies dizziness, Denies headache(s) and Denies sore throat Card Denies chest pain, Denies leg edema and Denies lightheadedness Resp Denies cough, Denies hemoptysis and Denies wheezing GI Denies abdominal pain, Denies melena, Denies constipation, Denies diarrhea and Denies vomiting Denies urinary frequency, Denies dysuria and Denies urinary urgency Musc Reports arthralgias (Hands(fingers), knees, bilateral hips), Reports joint swelling (Finger joints of bilateral hands-intermittently), Denies numbness and Denies tingling Neuro Denies Abnormal speech present, Denies behavioral changes, Denies vertigo, Denies dizziness, Denies headache(s), Denies loss of vision, Denies memory loss, Denies numbness and Denies tingling Psych Denies anxiety, Denies behavioral changes, Denies depression, Denies memory loss and Denies panic attacks Jared/Lymph Denies easy bleeding and Denies easy bruising Aller/Immun Denies wheezing Physical exam (Primary Care) Vital Signs: Last Vital Signs Pulse 55 08/30/24 08:31 BP 122/84 08/30/24 08:31 Pulse Ox 98 08/30/24 08:31 Oxygen Delivery Method Room Air 08/30/24 08:31 BMI result Body Mass Index 28.0 Tobacco/Smoking Status: Tobacco use Status Tobacco use date assessed 08/30/24 08/30/24 08:38 Patient Tobacco Use Status Current everyday Tobacco 08/30/24 08:38 e-Cigarette/Vaping Use Never Used 08/30/24 08:38 PHQ-9: PHQ-9 Score PHQ-9: Total score 0 08/30/24 08:38 Depression Screening Interpretation: Negative Thrive Assessment: Date of Thrive Assessment Date Thrive assessed 08/30/24 08/30/24 08:38 Currently or been in a relationship where the following occur: No concerns reported Const General: healthy appearing, no acute distress, alert and awake Nutritional Appearance: well nourished Orientation/consciousness: oriented to person, oriented to place and oriented to time HENMT Ears: TM's normal bilaterally General nose exam: Normal nasal mucous membranes and turbinates present Eyes Conjunctivae: conjunctivae normal Sclerae: sclerae normal Pupils: Equal, round and reactive pupils present Neck Neck: Yes no lymphadenopathy and Yes no JVD Thyroid: Thyroid normal Carotids: no bruits Resp Effort & Inspection: normal respiratory effort and not tachypneic Auscultation: no crackles, no rales, no rhonchi and no wheezes Cardio Rate: regular rate Rhythm: regular rhythm Heart sounds: no murmurs and normal S1 and S2 GI Palpation (GI): Soft to palpation, nontender, no hepatomegaly and no splenomegaly Auscultation: normal bowel sounds General: Yes no CVA tenderness Back/Spine/Pelvis Back: no CVA tenderness Skin General skin exam: no rashes or lesions noted and dry skin Neuro General: oriented to person, oriented to place and oriented to time Cranial nerves: Yes Equal, round and reactive pupils present Speech: No Abnormal speech present Gait exam (Neuro): Normal gait present Motor exam (neuro): no tremor noted Extrem Right upper extremity: full ROM and Extremity exam: right hand Details: abnormal to inspection Details: joint swelling and swelling Location: of the thumb Location: at the MCP joint, of the 2nd digit Location: at the PIP joint and at the DIP joint, of the 3rd digit Location: at the PIP joint and of the 5th digit Location: at the PIP joint Left upper extremity: full ROM and hand Details: abnormal to inspection Details: joint swelling and swelling Location: of the thumb Location: at the MCP joint, of the 2nd digit Location: at the middle phalanx, at the distal phalanx and at the PIP joint, of the 3rd digit Location: at the PIP joint and at the DIP joint and of the 5th digit Location: at the PIP joint Right lower extremity: full ROM, hip/thigh Details: no tenderness and knee Details: no tenderness and no swelling; no edema Left lower extremity: full ROM, hip/thigh Details: no tenderness and knee Details: no tenderness and no swelling; no edema Psych Mental Status: mental status grossly normal Speech and movement: Normal speech and movement present Affect: normal affect Attitude: cooperative Thought process: Normal thought process present Results Reviewed Results Reviewed: Laboratory Tests 08/23/24 06:50 WBC 7.7 RBC 4.64 Hgb 14.0 Hct 42.4 MCV 91.4 MCH 30.2 MCHC 33.0 RDW 13.3 Plt Count 196 MPV 10.9 Sodium 141 Potassium 4.3 Chloride 103 Carbon Dioxide 30 H Anion Gap 12 BUN 12 Creatinine 0.64 Estimated GFR > 60 Fasting Glucose 107 H Calcium 9.3 Total Bilirubin 0.4 AST 24 ALT 17 Alkaline Phosphatase 88 C-Reactive Protein 0.35 Total Protein 7.3 Albumin 4.1 Triglycerides 129 Cholesterol 231 H LDL Cholesterol, Calc 156 H HDL Cholesterol 50 25-OH Vitamin D Total 153.3 TSH 1.67 Rheumatoid Factor < 13.0 SUZAN Screen POSITIVE A SUZAN Titer 1:40 H SUZAN Titer 2 TNP SUZAN Titer 3 TNP SUZAN Pattern Nuclear, Speckled A Coding Level of Care Code Est Pt Level 4 (06454) Diagnoses Essential hypertension I10 Pure hypercholesterolemia E78.00 Non-ST elevation (NSTEMI) myocardial infarction I21.4 Chronic obstructive pulmonary disease, unspecified COPD type J44.9 COPD type: unspecified COPD Primary osteoarthritis involving multiple joints M15.0 Rheumatoid arthritis involving hand, unspecified laterality, unspecified whether rheumatoid factor present M06.9 Rheumatoid arthritis location: hand Rheumatoid factor presence: unspecified presence Laterality: unspecified laterality Anxiety F41.9 Smoker F17.200 Overweight (BMI 25.0-29.9) E66.3 Time Spent (min) 37 Assessment & Plan Assessment & Plan (1) Essential hypertension: Code(s): I10 - Essential (primary) hypertension Category: Medical Plan: Reinforced low sodium diet - goal is systolic BP of 120 to 130 mm or less Continue Amlodipine 10 mg QD and Metoprolol ER 25 mg QD (2) Pure hypercholesterolemia: Code(s): E78.00 - Pure hypercholesterolemia, unspecified Category: Medical Plan: Results of her labs done [facility] a couple of months ago reviewed and discussed with patient - she is advised that her cholesterol levels are elevated Patient states that has declined starting on cholesterol-lowering medications in the past and continues to do so - states that she has read a lot of negative things about the cholesterol-lowering medications and does not wish take any of those She is currently taking OTC Berberine ES 1200 mg daily to help lower her cholesterol levels Reinforced low-cholesterol diet Will recheck her labs and fasting lipids in 3 months for follow-up (3) Non-ST elevation (NSTEMI) myocardial infarction: Code(s): I21.4 - Non-ST elevation (NSTEMI) myocardial infarction Category: Medical Plan: S/P NSTEMI back in March 2024 but coronary angiography done revealed NO significant coronary artery disease except for 30% stenosis of the mid-LAD Continue Aspirin 81 mg QD and Metoprolol ER 25 mg QD Patient has declined being started on cholesterol-lowering medications Follow up with cardiology as scheduled - patient sees Dr. Fraser (4) COPD (chronic obstructive pulmonary disease): Code(s): J44.9 - Chronic obstructive pulmonary disease, unspecified Category: Medical Qualifiers: COPD type: unspecified COPD Qualified Code(s): J44.9 - Chronic obstructive pulmonary disease, unspecified Plan: Patient has Breo Ellipta 100-25 mcg at home but does not use it unless she has to States that she has only been using her Albuterol HFA 1 to 2 inhalations every 6 hours as needed. Reports that she was given DuoNeb in the hospital but she would rather have albuterol instead. However, she has not needed a nebulizer treatment in a long time. She sees pulmonary for follow up of her COPD - it appears that she is only seeing them once a year (5) Primary osteoarthritis involving multiple joints: Code(s): M15.0 - Primary generalized (osteo)arthritis Category: Medical Plan: Patient reports that she has osteoarthritis of multiple joints, including her hips, knees and lower back States that she takes only OTC Tylenol nowadays when needed (6) Rheumatoid arthritis: Code(s): M06.9 - Rheumatoid arthritis, unspecified Category: Medical Qualifiers: Rheumatoid arthritis location: hand Rheumatoid factor presence: unspecified presence Laterality: unspecified laterality Qualified Code(s): M06.9 - Rheumatoid arthritis, unspecified Plan: She reports (+) Hx of rheumatoid arthritis and recalls being on treatment for her RA in the past but has not been on any medications for the past couple of years now States that she sees Dr. Patrick at [facility] for rheumatology follow up regularly (7) Anxiety: Code(s): F41.9 - Anxiety disorder, unspecified Category: Medical Plan: Continue Lorazepam 0.5 mg BID PRN Patient states that she has been splitting her tablets in half lately and takes them only as needed and not BID regularly lately (8) Smoker: Code(s): F17.200 - Nicotine dependence, unspecified, uncomplicated Category: Social Hx Plan: Patient is counseled on smoking cessation - states that she has been actively working on quitting since her NM back in March 2024 States that she used to smoke 1.5 packs a day and is now down to about 8 cigarettes a day (9) Overweight (BMI 25.0-29.9): Code(s): E66.3 - Overweight Category: Medical Plan: Reinforced low-cholesterol diet and activity as tolerated Plan Follow up in 3 months Orders: Orders Lipid Panel 3 Months E66.3 - Overweight, E78.00 - Pure hypercholesterolemia, unspecified, F41.9 - Anxiety disorder, unspecified, I10 - Essential (primary) hypertension, J44.9 - Chronic obstructive pulmonary disease, unspecified, M06.9 - Rheumatoid arthritis, unspecified TSH reflex Free T4 3 Months E66.3 - Overweight, E78.00 - Pure hypercholesterolemia, unspecified, F41.9 - Anxiety disorder, unspecified, I10 - Essential (primary) hypertension, J44.9 - Chronic obstructive pulmonary disease, unspecified, M06.9 - Rheumatoid arthritis, unspecified Vitamin D 25-OH Total 3 Months E66.3 - Overweight, E78.00 - Pure hypercholesterolemia, unspecified, F41.9 - Anxiety disorder, unspecified, I10 - Essential (primary) hypertension, J44.9 - Chronic obstructive pulmonary disease, unspecified, M06.9 - Rheumatoid arthritis, unspecified Glucose Fasting 3 Months E66.3 - Overweight, E78.00 - Pure hypercholesterolemia, unspecified, F41.9 - Anxiety disorder, unspecified, I10 - Essential (primary) hypertension, J44.9 - Chronic obstructive pulmonary disease, unspecified, M06.9 - Rheumatoid arthritis, unspecified Hemoglobin A1c 3 Months E66.3 - Overweight, E78.00 - Pure hypercholesterolemia, unspecified, F41.9 - Anxiety disorder, unspecified, I10 - Essential (primary) hypertension, J44.9 - Chronic obstructive pulmonary disease, unspecified, M06.9 - Rheumatoid arthritis, unspecified Complete Blood Count Auto Diff 3 Months E66.3 - Overweight, E78.00 - Pure hypercholesterolemia, unspecified, F41.9 - Anxiety disorder, unspecified, I10 - Essential (primary) hypertension, J44.9 - Chronic obstructive pulmonary disease, unspecified, M06.9 - Rheumatoid arthritis, unspecified Comprehensive [place]. Panel Fast 3 Months E66.3 - Overweight, E78.00 - Pure hypercholesterolemia, unspecified, F41.9 - Anxiety disorder, unspecified, I10 - Essential (primary) hypertension, J44.9 - Chronic obstructive pulmonary disease, unspecified, M06.9 - Rheumatoid arthritis, unspecified UA CC w/rflx Micro + Cult 3 Months E66.3 - Overweight, E78.00 - Pure hypercholesterolemia, unspecified, F41.9 - Anxiety disorder, unspecified, I10 - Essential (primary) hypertension, J44.9 - Chronic obstructive pulmonary disease, unspecified, M06.9 - Rheumatoid arthritis, unspecified Medications: New metoprolol succinate ER 25 mg PO DAILY 90 tabs 3RF amlodipine 10 mg PO DAILY 30 tabs 3RF Changed From albuterol sulfate 90 mcg/actuation (ProAir HFA) 1 - 2 puffs inhalation Q4- 6H PRN dyspnea To albuterol sulfate 90 mcg/actuation 1 - 2 puffs inhalation Q4-6H PRN 8.5 grams 2RF dyspnea
[2024-08-30 08:31] VITALS: BP 122/84; PULSE 55; O2SAT 98; BMI 28.0
== END 2024-08-30 09:08 | disposition home or self-care (01) ==
LOC: HO.HMCH 08:23
PROVIDERS: PCP Internal Medicine
DX: I10 Essential (primary) hypertension (principal); I25.2 Old myocardial infarction; J44.9 Chronic obstructive pulmonary disease, unspecified; M06.9 Rheumatoid arthritis, unspecified; E66.3 Overweight; Z68.28 Body mass index [BMI] 28.0-28.9, adult; E78.00 Pure hypercholesterolemia, unspecified; M15.0 Primary generalized (osteo)arthritis; F41.9 Anxiety disorder, unspecified; F17.200 Nicotine dependence, unspecified, uncomplicated

== ENCOUNTER → 2024-08-30 08:22 | Outpatient (BNVA) | payer OTHER, SELFPAY | PROVIDERS: PCP Internal Medicine ==

== ENCOUNTER 2024-12-15 07:17 | Outpatient (REF) | payer OTHER, SELFPAY ==
--- OUTSIDE RECORDS SUMMARY | 2024-12-15 07:22 | XMS_ITS | Clinical Summary ---
Author Organization [facility] Address [address] [place] [id number] Phone Care Team Providers Care Etymology Teacher Name Role Phone Anne-Marie Newsome MD Primary Care Provider Allergies Active Allergy Reactions Criticality Noted Date Comments Varenicline Headaches 07/14/2017 Meperidine Nausea and/or Vomiting 07/14/2017 Vomiting-Instantly Lisinopril Cough 05/01/2019 Penicillins Hives,Swelling 07/14/2017 Sulfa (Sulfonamide Antibiotics) Hives 07/14/2017 Carbamazepine Hives 07/14/2017 Medications amLODIPine (NORVASC) 10 MG tablet Take 10 mg by mouth daily. Active albuterol 90 mcg/actuation inhaler Inhale 2 puffs into the lungs every 6 (six) hours as needed for wheezing. Active LORazepam (ATIVAN) 0.5 MG tablet Take 0.5 mg by mouth 2 (two) times a day. Active sodium chloride (OCEAN) 0.65 % nasal spray 1 spray by Nasal route as needed for congestion. Active naproxen sodium (ALEVE) 220 MG tablet Take 440 mg by mouth as needed. Active docusate sodium (COLACE) 100 MG capsule Take 100 mg by mouth as needed for constipatio n. Active therapeutic multivitamin tablet Take 1 tablet by mouth daily. Active ascorbic acid, vitamin C, (VITAMIN C) 1000 MG tablet Take 500 mg by mouth daily. Active SYSTANE, PROPYLENE GLYCOL, 0.4-0.3 % Drop Place 1 drop into each eye daily as needed. 01/14/2022 Active cholecalciferol (VITAMIN D3) 25 MCG (1,000 unit) tablet Take 1,000 Units by mouth daily. Active TURMERIC ORAL Take by mouth 2 (two) times a day. Active hydroxychloroquin e (PLAQUENIL) 200 mg tabletIndications :Inflammatory polyarthropathy,P ain of both hip joints TAKE ONE TABLET BY MOUTH TWICE A DAY 60 tablet 11 02/22/2023 Active Active Problems Problem Noted Date Diagnosed Date Trochanteric bursitis of both hips 10/24/2021 Assessment & Plan (06/05/2022 11:02 AM EST): Use warm pack versus warm shower prior to gentle, regular ROM, stretching and muscle strengthening exercises-formal PT referral provided since she is afraid of needles. She may benefit from topical products such as Aspercreme, Arnica, Biofreeze, Voltaren versus medicated patches such as Salonpas or IcyHot patch 2-3 times daily x 3 weeks. Assessment & Plan (11/10/2021 9:08 PM EDT): Use warm pack versus warm shower prior to gentle, regular ROM, stretching and muscle strengthening exercises-formal PT referral provided since she is afraid of needles. She may benefit from topical products such as Aspercreme, Arnica, Biofreeze, Voltaren versus medicated patches such as Salonpas or IcyHot patch 2-3 times daily x 3 weeks. Irregular heart beat 04/25/2021 Assessment & Plan (04/27/2021 7:37 PM EST): EKG requested to document type of irregular heartbeat detected by auscultation. Opioid use 10/27/2019 Assessment & Plan (10/27/2019 9:02 AM EDT): I have spent additional 5 minutes reviewing with Elida increased risk of constipation and breathing difficulty, change in mentation with double dose of codeine that she requested today due to increased pain in her right hip. I have asked her to try it first over the weekend and make family member aware that she is taking stronger medication and watch for any side effects before taking it outside of home. She understands that if there are side effects or it does not work to her satisfaction we may need to change that medication altogether I warned her that it may create dependence and tolerance to medication and I only provided her with a 30-day supply asking her to use it as infrequently as possible. Take exactly as prescribed, try to limit frequency by employing non-for pharmacologic measures such as topical creams, warm packs, patches, regular relaxation/mediation/positive imagery sessions etc. Build up regular exercise routine up to the goal of 30-45 minutes daily. Monitor for increasing shortness of breath, reduced respiratory drive, increasing constipation Inflammatory polyarthritis 05/01/2019 Assessment & Plan (05/02/2019 5:42 PM EST): Get labs monitoring safety of therapy today and prior to next visit in 3 months. Consider gentle regular massage and either chiropractor or formal PT for her neck stiffness Carefully continue Plaquenil as prescribed. Continue regular exercise as educated in OT. Splinting, assistive devices. Topical cream versus patch. Consider paraffin baths for use at home if helpful at OT facility. Dupuytren's contracture of right hand 05/01/2019 Assessment & Plan (06/05/2022 10:49 AM EST): Gently massage along the flexor tendon starting from the proximal crease toward distal portion. Particularly gently press on palpable thickening and stretch after warm pack or warm bath. Assessment & Plan (02/06/2022 10:55 AM EDT): Gently massage along the flexor tendon starting from the proximal crease toward distal portion. Particularly gently press on palpable thickening and stretch after warm pack or warm bath. Assessment & Plan (05/02/2019 5:36 PM EST): Gently massage along the flexor tendon starting from the proximal crease toward distal portion. Particularly gently press on palpable thickening and stretch after warm pack or warm bath. Inflammatory polyarthropathy 02/13/2019 Assessment & Plan (02/22/2023 9:04 AM EST): Get labs monitoring safety of therapy prior to next visit in 6 months. Consider gentle regular massage and either chiropractor or formal PT for her neck stiffness Carefully continue Plaquenil as prescribed. She was previously provided with pamphlets on methotrexate that she is not interested in taking. Sulfasalazine and Arava do not seem to appeal to her either but requested another pamphlet on arrival to review again. Continue regular exercise as educated in OT. Splinting, assistive devices. Topical cream versus patch. Consider paraffin baths for use at home if helpful at OT facility. Due to ongoing right-sided hip pain limiting her walking I encouraged her to continue gentle home exercises and consider warm pool therapy at [facility] versus [facility] in [place], [place]. If symptoms do not respond to above measures may need to consider local steroid injection ( I am fearful of needles ) Assessment & Plan (10/22/2022 10:46 AM EDT): Inflammatory polyarthritis mostly [id number] haneds. Has been on Plaquenil with partial improvement, but until very recently, had considerable ongoing stiffness and pains. Some of this may be OA related. Now taking home-made potion with turmeric etc and for past week doing very well. Discussed recent labs. ESR remains elevated. Advised she can try Voltaren gel in addition to her topical CBD. Keep follow up appt Dr Patrick. Assessment & Plan (04/25/2021 10:30 AM EST): Get labs monitoring safety of therapy prior to next visit in 4 months. Consider gentle regular massage and either chiropractor or formal PT for her neck stiffness Carefully continue Plaquenil as prescribed. Continue regular exercise as educated in OT. Splinting, assistive devices. Topical cream versus patch. Consider paraffin baths for use at home if helpful at OT facility. Due to ongoing right-sided hip pain limiting her walking I encouraged her to continue gentle home exercises and consider warm pool therapy at [facility] versus [facility] in [place], [place]. If symptoms do not respond to above measures consider local steroid injection ( I am fearful of needles ) Assessment & Plan (01/02/2021 4:57 PM EDT): Get labs monitoring safety of therapy prior to next visit in 4 months. Consider gentle regular massage and either chiropractor or formal PT for her neck stiffness Carefully continue Plaquenil as prescribed. Continue regular exercise as educated in OT. Splinting, assistive devices. Get yearly influenza vaccine by mid January 2021. Topical cream versus patch. Consider paraffin baths for use at home if helpful at OT facility. Due to ongoing right-sided hip pain limiting her walking I encouraged her to continue gentle home exercises and consider warm pool therapy at [facility] versus [facility] in [place], [place]. If symptoms do not respond to above measures consider local steroid injection ( I am fearful of needles ) Assessment & Plan (10/27/2019 8:55 AM EDT): Get labs monitoring safety of therapy prior to next visit in 3 months. Consider gentle regular massage and either chiropractor or formal PT for her neck stiffness Carefully continue Plaquenil as prescribed. Continue regular exercise as educated in OT. Splinting, assistive devices. Topical cream versus patch. Consider paraffin baths for use at home if helpful at OT facility. Due to ongoing right-sided hip pain limiting her walking I encouraged her to continue gentle home exercises and consider warm pool therapy at [facility]. If symptoms do not respond to above measures consider local steroid injection ( I am fearful of needles ) Assessment & Plan (02/13/2019 8:11 AM EST): Carefully continue Plaquenil as prescribed. Continue regular exercise as educated in OT. Splinting, assistive devices. Topical cream versus patch. Consider paraffin baths for use at home if helpful at OT Facility. Hypertension 02/13/2019 Assessment & Plan (05/01/2019 8:55 AM EST): Continue antihypertensive therapy as prescribed. Limit added salt in the diet. Assessment & Plan (02/18/2019 4:22 PM EST): Continue antihypertensive therapy as prescribed. Limit added salt in the diet. Long-term use of Plaquenil 03/18/2018 Assessment & Plan (02/22/2023 9:04 AM EST): Continue as prescribed. Follow-up with operations support manager every 12 months as requested Daily sun protection all year round. Assessment & Plan (10/22/2022 10:48 AM EDT): Continue as prescribed. Reschedule ophtalmologist's checkup due to COVID-19 cancellation Daily sun protection all year round. Assessment & Plan (06/05/2022 10:52 AM EST): Continue as prescribed. Reschedule ophtalmologist's checkup due to COVID-19 cancellation Daily sun protection all year round. Assessment & Plan (02/06/2022 10:47 AM EDT): Continue as prescribed. Reschedule ophtalmologist's checkup due to COVID-19 cancellation Daily sun protection all year round. Assessment & Plan (10/24/2021 11:57 AM EDT): Continue as prescribed. Reschedule ophtalmologist's checkup due to COVID-19 cancellation Daily sun protection all year round. Assessment & Plan (04/25/2021 10:27 AM EST): Continue as prescribed. Reschedule ophtalmologist's checkup due to COVID-19 cancellation Daily sun protection all year round. Assessment & Plan (12/25/2020 11:02 AM EDT): Continue as prescribed. Reschedule ophtalmologist's checkup due to COVID-19 cancellation Daily sun protection all year round. Assessment & Plan (10/27/2019 8:57 AM EDT): Continue as prescribed. Reschedule ophtalmologist's checkup due to COVID-19 cancellation Daily sun protection all year round. Assessment & Plan (05/01/2019 8:55 AM EST): Continue as prescribed. See ophtalmology as scheduled Daily sun protection all year round. Assessment & Plan (02/13/2019 8:14 AM EST): Continue as prescribed. See ophtalmology as scheduled Daily sun protection all year round. NSAID long-term use 03/18/2018 Assessment & Plan (02/22/2023 8:34 AM EST): Take the lowest dose, with least frequency, for shortest time. Remember to take it always with food. Favor topical over oral preparations. Assessment & Plan (06/05/2022 10:52 AM EST): Take the lowest dose, with least frequency, for shortest time. Remember to take it always with food. Favor topical over oral preparations. Assessment & Plan (02/06/2022 10:48 AM EDT): Take the lowest dose, with least frequency, for shortest time. Remember to take it always with food. Favor topical over oral preparations. Assessment & Plan (10/24/2021 11:57 AM EDT): Take the lowest dose, with least frequency, for shortest time. Remember to take it always with food. Favor topical over oral preparations. Assessment & Plan (04/25/2021 10:27 AM EST): Take the lowest dose, with least frequency, for shortest time. Remember to take it always with food. Favor topical over oral preparations. Assessment & Plan (12/25/2020 11:02 AM EDT): Take the lowest dose, with least frequency, for shortest time. Remember to take it always with food. Favor topical over oral preparations. Assessment & Plan (10/27/2019 8:58 AM EDT): Take the lowest dose, with least frequency, for shortest time. Remember to take it always with food. Favor topical over oral preparations. Assessment & Plan (05/01/2019 8:55 AM EST): Take the lowest dose, with least frequency, for shortest time. Remember to take it always with food. Favor topical over oral preparations. Assessment & Plan (02/13/2019 8:19 AM EST): Take the lowest dose, with least frequency, for shortest time. Remember to take it always with food. Favor topical over oral preparations. Inflammatory arthritis 11/17/2017 Assessment & Plan (06/20/2022 6:43 PM EDT): Get labs monitoring safety of therapy today and prior to next visit in 4 months. Consider gentle regular massage and either chiropractor or formal PT for her neck stiffness Carefully continue Plaquenil as prescribed. She was previously provided with pamphlets on methotrexate that she is not interested in taking. Sulfasalazine and Arava do not seem to appeal to her either. Continue regular exercise as educated in OT. Splinting, assistive devices. Topical cream versus patch. Consider paraffin baths for use at home if helpful at OT facility. Due to ongoing right-sided hip pain limiting her walking I encouraged her to continue gentle home exercises and consider warm pool therapy at [facility] versus [facility] in [place], [place]. If symptoms do not respond to above measures consider local steroid injection ( I am fearful of needles ) Assessment & Plan (02/06/2022 10:46 AM EDT): Get labs monitoring safety of therapy prior to next visit in 3 months. Consider gentle regular massage and either chiropractor or formal PT for her neck stiffness Carefully continue Plaquenil as prescribed. She was previously provided with pamphlets on methotrexate that she is not interested in taking. Sulfasalazine and Arava do not seem to appeal to her either. Continue regular exercise as educated in OT. Splinting, assistive devices. Topical cream versus patch. Consider paraffin baths for use at home if helpful at OT facility. Due to ongoing right-sided hip pain limiting her walking I encouraged her to continue gentle home exercises and consider warm pool therapy at [facility] versus [facility] in [place], [place]. If symptoms do not respond to above measures consider local steroid injection ( I am fearful of needles ) Assessment & Plan (11/10/2021 9:07 PM EDT): Get labs monitoring safety of therapy prior to next visit in 3 months. Consider gentle regular massage and either chiropractor or formal PT for her neck stiffness Carefully continue Plaquenil as prescribed. She was previously provided with pamphlets on methotrexate that she is not interested in taking. Sulfasalazine and Arava do not seem to appeal to her either. Continue regular exercise as educated in OT. Splinting, assistive devices. Topical cream versus patch. Consider paraffin baths for use at home if helpful at OT facility. Due to ongoing right-sided hip pain limiting her walking I encouraged her to continue gentle home exercises and consider warm pool therapy at [facility] versus [facility] in [place], [place]. If symptoms do not respond to above measures consider local steroid injection ( I am fearful of needles ) Assessment & Plan (04/27/2021 7:37 PM EST): Get labs monitoring safety of therapy prior to next visit in 6 months. Consider gentle regular massage and either chiropractor or formal PT for her neck stiffness Carefully continue Plaquenil as prescribed. Continue regular exercise as educated in OT. Splinting, assistive devices. Topical cream versus patch. Consider paraffin baths for use at home if helpful at OT facility. Due to ongoing right-sided hip pain limiting her walking I encouraged her to continue gentle home exercises and consider warm pool therapy at [facility] versus [facility] in [place], [place]. If symptoms do not respond to above measures consider local steroid injection ( I am fearful of needles ) Class 1 obesity due to exces s calories without serious comorbidity with body mass index (BMI) of 32.0 to 32.9 in adult 09/15/2017 Assessment & Plan (06/05/2022 10:52 AM EST): Portion control. Limit concentrated sugars, saturated fats and calories in the diet. Keep well-hydrated. If unable to achieve expected goal consider formal dietary/nutritional support. Assessment & Plan (02/06/2022 10:47 AM EDT): Portion control. Limit concentrated sugars, saturated fats and calories in the diet. Keep well-hydrated. If unable to achieve expected goal consider formal dietary/nutritional support. Assessment & Plan (11/10/2021 9:09 PM EDT): Congratulations on 3 pounds weight loss since April 2021 from 211 lbs down to 208 lbs-keep it off. Continue diligent portion control. Limit concentrated sugars, saturated fats and calories in the diet. Keep well-hydrated. If unable to achieve expected goal consider formal dietary/nutritional support. Assessment & Plan (04/25/2021 10:27 AM EST): Portion control. Limit concentrated sugars, saturated fats and calories in the diet. Keep well-hydrated. If unable to achieve expected goal consider formal dietary/nutritional support. Assessment & Plan (01/02/2021 4:55 PM EDT): Focus on portion control to lose unnecessary 11 pounds gained within the last year. Limit concentrated sugars, saturated fats and calories in the diet. Keep well-hydrated. If unable to achieve expected goal consider formal dietary/nutritional support. Assessment & Plan (05/01/2019 8:54 AM EST): Portion control. Limit concentrated sugars, saturated fats and calories in the diet. Keep well-hydrated. If unable to achieve expected goal consider formal dietary/nutritional support. Assessment & Plan (02/13/2019 8:12 AM EST): Portion control. Limit concentrated sugars, saturated fats and calories in the diet. Keep well-hydrated. If unable to achieve expected goal consider formal dietary/nutritional support. Chronic fatigue 07/14/2017 Weakness of hand 07/14/2017 Pain of both hip joints 07/14/2017 Assessment & Plan (02/22/2023 8:34 AM EST): Continue gentle, regular exercise routine as educated in PT preceded by warm or warm shower. Examples of exercises with pictures and detailed instructions printed today for home use. Avoid falls, injuries, overuse. Use topical cream versus patch 2-3 times daily and if needed at bedtime. Consider formal PT versus warm pool therapy or local steroid injection if not better despite above measures. Assessment & Plan (02/22/2022 10:19 PM EST): Continue gentle, regular exercise routine as educated in PT preceded by warm or warm shower. Examples of exercises with pictures and detailed instructions printed today for home use. Avoid falls, injuries, overuse. Use topical cream versus patch 2-3 times daily and if needed at bedtime. Consider formal PT versus warm pool therapy or local steroid injection if not better despite above measures. Assessment & Plan (04/25/2021 10:27 AM EST): Continue gentle, regular exercise routine as educated in PT preceded by warm or warm shower. Examples of exercises with pictures and detailed instructions printed today for home use. Avoid falls, injuries, overuse. Use topical cream versus patch 2-3 times daily and if needed at bedtime. Consider formal PT versus warm pool therapy or local steroid injection if not better despite above measures. Assessment & Plan (01/02/2021 5:00 PM EDT): Continue gentle, regular exercise routine as educated in PT preceded by warm or warm shower. Examples of exercises with pictures and detailed instructions printed today for home use. Avoid falls, injuries, overuse. Use topical cream versus patch 2-3 times daily and if needed at bedtime. Consider formal PT versus warm pool therapy or local steroid injection if not better despite above measures. Cold sensitivity 07/14/2017 Fungal nail infection 07/14/2017 Tobacco dependence syndrome 07/14/2017 Assessment & Plan (02/22/2023 9:06 AM EST): I have spent at least 3 minutes on encouraging her to work on complete smoking cessation by reducing number of cigarettes smoked daily by 1 cigarette every week and be ready for dealing with cravings by stocking finger size healthy snacks such as small carrots, cucumbers, celery sticks etc. I encouraged her to remember about decreased risk of developing lung cancer, bladder cancer, cervical cancer, stroke and heart attack after stopping cigarette smoking. She admits to difficulty quitting therefore I provided her with phone number . For free telephonic smoking cessation services: 1 800-QUIT- NOW that she already told me she is not going to use at this time but may change her position at some point in the future. Assessment & Plan (06/05/2022 10:52 AM EST): I have spent at least 3 minutes on encouraging her to work on complete smoking cessation by reducing number of cigarettes smoked daily by 1 cigarette every week and be ready for dealing with cravings by stocking finger size healthy snacks such as small carrots, cucumbers, celery sticks etc. I encouraged her to remember about decreased risk of developing lung cancer, bladder cancer, cervical cancer, stroke and heart attack after stopping cigarette smoking. She admits to difficulty quitting therefore I provided her with phone number and name of research coordinator: Lou Medrano at [phone] for quit smoking study offered by [facility] of [facility]. Assessment & Plan (02/06/2022 10:48 AM EDT): I have spent at least 3 minutes on encouraging her to work on complete smoking cessation by reducing number of cigarettes smoked daily by 1 cigarette every week and be ready for dealing with cravings by stocking finger size healthy snacks such as small carrots, cucumbers, celery sticks etc. I encouraged her to remember about decreased risk of developing lung cancer, bladder cancer, cervical cancer, stroke and heart attack after stopping cigarette smoking. She admits to difficulty quitting therefore I provided her with phone number and name of research coordinator: Lou Medrano at [phone] for quit smoking study offered by [facility] of [facility]. Assessment & Plan (10/24/2021 11:57 AM EDT): I have spent at least 3 minutes on encouraging her to work on complete smoking cessation by reducing number of cigarettes smoked daily by 1 cigarette every week and be ready for dealing with cravings by stocking finger size healthy snacks such as small carrots, cucumbers, celery sticks etc. I encouraged her to remember about decreased risk of developing lung cancer, bladder cancer, cervical cancer, stroke and heart attack after stopping cigarette smoking. She admits to difficulty quitting therefore I provided her with phone number and name of research coordinator: Lou Medrano at [phone] for quit smoking study offered by [facility] of [facility]. Assessment & Plan (04/27/2021 7:41 PM EST): I have spent at least 3 minutes on encouraging her to work on complete smoking cessation by reducing number of cigarettes smoked daily by 1 cigarette every week and be ready for dealing with cravings by stocking finger size healthy snacks such as small carrots, cucumbers, celery sticks etc. I encouraged her to remember about decreased risk of developing lung cancer, bladder cancer, cervical cancer, stroke and heart attack after stopping cigarette smoking. She admits to difficulty quitting therefore I provided her with phone number and name of research coordinator: Lou Medrano at [phone] for quit smoking study offered by [facility] Behavior[facility] of [facility]. Assessment & Plan (12/25/2020 11:01 AM EDT): I have spent at least 3 minutes on encouraging her to work on complete smoking cessation by reducing number of cigarettes smoked daily by 1 cigarette every week and be ready for dealing with cravings by stocking finger size healthy snacks such as small carrots, cucumbers, celery sticks etc. I encouraged her to remember about decreased risk of developing lung cancer, bladder cancer, cervical cancer, stroke and heart attack after stopping cigarette smoking. She admits to difficulty quitting but feels that she is able to work on that herself without need for cigarette smoking cessation specialist help. Assessment & Plan (10/27/2019 8:56 AM EDT): I have spent at least 3 minutes on encouraging her to work on complete smoking cessation by reducing number of cigarettes smoked daily by 1 cigarette every week and be ready for dealing with cravings by stocking finger size healthy snacks such as small carrots, cucumbers, celery sticks etc. I encouraged her to remember about decreased risk of developing lung cancer, bladder cancer, cervical cancer, stroke and heart attack after stopping cigarette smoking. She admits to difficulty quitting but feels that she is able to work on that herself without need for cigarette smoking cessation specialist help. Assessment & Plan (05/01/2019 8:55 AM EST): I have spent at least 3 minutes on encouraging her to work on complete smoking cessation by reducing number of cigarettes smoked daily by 1 cigarette every week and be ready for dealing with cravings by stocking finger size healthy snacks such as small carrots, cucumbers, celery sticks etc. I encouraged her to remember about decreased risk of developing lung cancer, bladder cancer, cervical cancer, stroke and heart attack after stopping cigarette smoking. Assessment & Plan (02/18/2019 4:24 PM EST): I have spent at least 3 minutes on encouraging her to work on complete smoking cessation by reducing number of cigarettes smoked daily by 1 cigarette every week and be ready for dealing with cravings by stocking finger size healthy snacks such as small carrots, cucumbers, celery sticks etc. I encouraged her to remember about decreased risk of developing lung cancer, bladder cancer, cervical cancer, stroke and heart attack after stopping cigarette smoking. Pain in both hands 07/14/2017 Social History Tobacco Use Types Packs/Day Years Used Date Smoking Tobacco: Every Day Cigarettes 0.5 35 Smokeless Tobacco: Never Tobacco Cessation:Ready to Q uit: Not Asked; Counseling Given: Not Answered Alcohol Use Standard Drinks/Week Comments No 0 (1 standard drink = 0.6 oz pur e alcohol) Education Answer Date Recorded Are you interested in more education? Not on angie e 07/31/2022 Are you concerned about learning? Not on file 07/31/2022 No 07/31/2022 No 07/31/2022 Digital Access Answer Date Recorded No 08/26/2022 No 08/26/2022 Reliable internet access at home? Not on file 08/26/2022 Device with a working camera? Not on file Comments Unknown Sex and Gender Information Value Date Recorded Sex Assigned at Not on file Legal Sex Female 9:44 PM EDT Gender Identity Not on file Sexual Orientation Not on file Last Filed Vital Signs Vital Sign Reading Time Taken Comments Blood Pressure 124/84 02/22/2023 8:11 AM EST Pulse 83 02/22/2023 8:11 AM EST Temperature - - Respiratory Rate 16 02/22/2023 8:11 AM EST Oxygen Saturation 96% 02/22/2023 8:11 AM EST Inhaled Oxygen Concentration - - Weight 88.5 kg (195 lb) 02/22/2023 8:11 AM EST Height 174.6 cm (5' 8.74 ) 02/22/2023 8:11 AM ES T Body Mass Index 29.01 02/22/2023 8:11 AM EST Plan of Treatment Health Maintenance Due Date Last Done Comments DEPRESSION SCREENING 1974 SMOKING Hx and SMOKELESS TOBACCO SCREENING 09/13/1975 HEPATITIS C SCREENING 1980 HIV ONE-TIME SCREENING (18-65 YEARS) 1980 PNEUMOCOCCAL VACCINES (50+ years) (1 of 2 - PCV) 1981 MAMMOGRAM 2002 COLOGUARD 09/13/2007 COLONOSCOPY 09/13/2007 COLORECTAL CANCER SCREENING 09/13/2007 FIT TEST 09/13/2007 FOBT 09/13/2007 SIGMOIDOSCOPY 09/13/2007 VIRTUAL COLONOSCOPY 09/13/2007 ZOSTER VACCINES (2 of 2) 05/30/2019 04/04/2019 PAP SMEAR 04/04/2022 04/04/2019 Adult Td,Tdap Booster 09/01/2022 09/01/2012 BLOOD PRESSURE 08/23/2023 02/22/2023 INFLUENZA VACCINE (#1) 2024 , 11/25/2018, 01/18/2018, Additional history exists COVID-19 VACCINE ( - season) 2024 SCREENING FOR DIABETES 02/22/2026 02/22/2023, 2022 LIPID PANEL 02/23/2028 02/22/2023 RSV VACCINE (1 - 1-dose 75+ series) 2037 HEPATITIS A VACCINES Aged Out No long er eligible based on patient's age to complete this topic HIB VACCINES Aged Out No longer eligi ble based on patient's age to complete this topic MENINGOCOCCAL VACCINES (ACWY) Aged Out No longer eligible based on patient's age to complete this topic MENINGOCOCCAL VACCINES (B) Aged Out N o longer eligible based on patient's age to complete this topic Medical Devices Not on file Procedures Procedure Name Priority Date/Time Associated Diagnosis Comments PAP TEST Routine 04/04/2019 12:00 AM EST from Last 3 Months or Most Recently Relevant to Health Maintenance Results * Pap Smear (04/04/2019 12:00 AM EST) 04/04/2019 04/06/2019 9:0 7 AM EST Narrative SEE NARRATIVE - 04/10/2019 3:28 [place] [address] CHILD CARE TEAM LEAD Cytology Report Patient Name: ELIDA WAGNER : 1960 (Age: 58) Sex: F Institution: [facility] Location: [facility] Date of Collection: 04/04/2019 Date of Reported: 04/10/2019 15:28 Results to: Anne-Marie Newsome MD FINAL DIAGNOSIS A. CERVICAL, LIQUID BASED SPECIMEN: SPECIMEN ADEQUACY: Satisfactory for evaluation. INTERPRETATION: NEGATIVE FOR INTRAEPITHELIAL LESION OR MALIGNANCY. ADDITIONAL INFORMATION: This specimen was prescreened using the [employer] System. Electronically Signed Out By: JEANNE Wheatley(ASCP)BROOKS Cervical cytology is a screening test primarily for squamous cancers and precursors and has associated false-negative and false-positive results. New technologies such as liquid-based preparations may decrease but will not eliminate all false-negative results. Regular sampling and follow-up of unexplained clinical signs and symptoms are recommended to minimize false negative results. PROCEDURES/ADDENDA HPV Testing (Requested) Ordered Date: 04/06/2019 A. CERVICAL, LIQUID BASED SPECIMEN: Human Papilloma Virus Test Negative for high-risk human papillomavirus types 16, 18, 45 and the Other high risk probe set (Includes 31, 33, 35, 39, 51, 52, 56, 58, 59, 66, 68) by [employer] HR-HPV analysis. Clinical correlation is advised. This HPV test was performed at [facility], [address] [place] [address]. This test has been FDA approved for [employer] cervical cytology specimens. The accuracy and precision of this test for all other specimen sources has been verified in the Cytopathology Laboratory of the [facility] and has not been cleared or approved by the U.S. Food and Drug Administration. Clinical correlation is advised. CLINICAL HISTORY Date of Last Menstrual Period: Menstrual History: Post Menopausal Other Clinical Conditions: Screening Pap SPECIMEN SOURCE A: CERVICAL, LIQUID BASED SPECIMEN us Anne-Marie Newsome MD CYTOLOGY ORDERABLES Final R esult SEE NARRATIVE from Last 3 Months or Most Recently Relevant to Health Maintenance Insurance [facility] CARE MEDICARE REPLACEMENT CARE MEDICARE REPLACEMENT CARE MEDICARE REPLACEMENT CARE MEDICARE REPLACEMENT MEDICARE REPLACEMENT MEDICARE REPLACEMENT Care Teams Etymology Teacher Relationship Specialty Start Date End Date Anne-Marie Newsome MD [email or web address] PCP - General Family Medicine 05/14/17 Additional Source Comments The information contained in this document represents components of the legal health record. It is not the complete legal health record.[facility]
--- OUTSIDE RECORDS SUMMARY | 2024-12-15 07:22 | XMS_ITS | Encounter Summary ---
Author Organization [facility] Address [address] [place] [phone] Phone Care Team Providers Care Field Enumerator Name Role Phone Anne-Marie Newsome MD Primary Care Provider Anne-Marie Newsome MD Unavailable [phone] Anne-Marie Newsome MD Unavailable [phone] Anne-Marie Newsome MD Unavailable [phone] Encounter Details Date Type Department Care Team (Late st Contact Info) Description 07/15/2017 Procedure Pass [facility], Ct Scan - [address] [address] Social History Tobacco Use Types Packs/Day Years Used Date Smoking Tobacco: Every Day Cigarettes 0.5 35 Smokeless Tobacco: Never Alcohol Use Standard Drinks/Week Comments No 0 (1 standard drink = 0.6 oz pur e alcohol) Comments Unknown Sex and Gender Information Value Date Recorded Sex Assigned at Not on file Legal Sex Female 9:44 PM EDT Gender Identity Not on file Sexual Orientation Not on file documented as of this encounter Plan of Treatment Not on file documented as of this encounter Visit Diagnoses Not on filedocumented in this encounter Care Teams Field Enumerator Relationship Specialty Start Date End Date Anne-Marie Newsome MD [email or web address] PCP - General Family Medicine 05/14/17 Anne-Marie Newsome MD [address] [place] [phone] [email or web address] Insurance Assigned Provider 07/03/17 07/09/18 Anne-Marie Newsome MD [address] [place] [address] [email or web address] Insurance Assigned Provider 09/13/21 08/22/22 Anne-Marie Newsome MD [address] [place] [address] [email or web address] Insurance Assigned Provider 10/10/22 12/12/22 documented as of this encounter Additional Source Comments The information contained in this document represents components of the legal health record. It is not the complete legal health record.[facility]
--- OUTSIDE RECORDS SUMMARY | 2024-12-15 07:22 | XMS_ITS | Encounter Summary ---
Author Organization [facility] Address [address] [place] [id number] Phone Care Team Providers Care Blow Up Operator Name Role Phone Anne-Marie Newsome MD Primary Care Provider Anne-Marie Newsome MD Unavailable [phone] Encounter Details Date Type Department Care Team (Late st Contact Info) Description 08/26/2022 Transcribe Orders Virtual Department [address] [place] [address] Anne-Marie Newsome MD [address] [place] [phone] [email or web address] Nicotine dependence, cigarettes, uncomplicated (Primary Dx) Social History Tobacco Use Types Packs/Day Years [...] documented as of this encounter Visit Diagnoses Diagnosis Nicotine dependence, cigarettes, uncomplicated- Primary documented in this encounter Care Teams Blow Up Operator Relationship Specialty Start Date End Date Anne-Marie Newsome MD PCP - General Family Medicine 05/14/17 Anne-Marie Newsome MD [address] [place] [phone] [email or web address] Insurance Assigned Provider 10/10/22 12/12/22 documented as of this encounter Additional Source Comments The information contained in this document represents components of the legal health record. It is not the complete legal health record.[facility]
--- OUTSIDE RECORDS SUMMARY | 2024-12-15 07:22 | XMS_ITS ---
Author Name [facility] Organization Unknown Care Team Organization Name Specialty Phone Email Start Date End Da te [facility] 09/11/2022 4
[2024-12-15 07:35] LABS: MANUAL DIFF FLAG NO
[2024-12-15 08:18] LABS: Hematocrit 39.4 % (37.0-47.0); Hemoglobin 13.5 g/dl (12.0-16.0); Imm Gran Abs Auto 0.01 X10*3/uL (0.00-0.03); Imm Gran Pct Auto 0.1 % (0.0-0.4); Lymphocytes Absolute Auto 2.6 X10*3/uL (1.2-4.9); Mean Corpuscular HGB Conc 34.3 g/dl (31.0-35.0); Mean Corpuscular Hemoglobin 30.3 pg (27.0-33.0); Mean Corpuscular Volume 88.5 fL (80.0-98.0); NRBC Abs Auto 0.000 X10*3/uL (0.0-0.012); NRBC Pct Auto 0.0 /100WBC (0.0-0.2); Platelet Count 180 X10*3/uL (160-400); Red Blood Count 4.45 X10*6/uL (4.20-5.50); White Blood Count 7.3 X10*3/uL (4.8-10.8)
[2024-12-15 08:33] LABS: Hemoglobin A1C 130.9861 umol/L; Total Hemoglobin (HGBA1C) 3510.5253 umol/L
[2024-12-15 09:03] LABS: Appearance Urine Clear; Glucose Urine UA Negative (Negative); PH 6.0 (5.0-9.0); Specific Gravity - Urine 1.010 (1.005-1.025)
[2024-12-15 09:12] LABS: Alanine Aminotransferase 17 U/L (0-31); Albumin Level 4.2 g/dL (3.5-5.0); Alkaline Phosphatase 95 U/L (39-117); Anion Gap 14 (12-20); Aspartate Amino Transferase 24 U/L (5-31); Blood Urea Nitrogen 13 mg/dL (9-16); Calcium 9.4 mg/dL (8.4-10.2); Carbon Dioxide 29 mmol/L (22-29); Chloride 102 mmol/L (96-108); Cholesterol 234 mg/dL (<200); Estimated Glomerular Filt Rate > 60; HDL Cholesterol 48 mg/dL (>40); Potassium 4.9 mmol/L (3.3-5.1); Sodium 140 mmol/L (135-145); Total Protein 7.1 g/dL (6.5-8.0); Triglycerides 130 mg/dL (<150)
== END 2024-12-15 07:18 | disposition home or self-care (01) ==
LOC: HO.LAB 07:17
PROVIDERS: PCP Internal Medicine
DX: I10 Essential (primary) hypertension (principal); J44.9 Chronic obstructive pulmonary disease, unspecified; M06.9 Rheumatoid arthritis, unspecified; E66.3 Overweight; F41.9 Anxiety disorder, unspecified; E78.00 Pure hypercholesterolemia, unspecified; Z13.1 Encounter for screening for diabetes mellitus
CPT/HCPCS: 36415; 80053; 80061; 81003; 82306; 83036; 84443; 85025

== ENCOUNTER 2024-12-20 13:08 | Outpatient (AMB) | payer OTHER, MEDICAID, SELFPAY ==
[2024-12-20 13:20] VITALS: BP 126/80; PULSE 64; O2SAT 92; BMI 28.6
--- NOTE | 2024-12-20 13:20 | A.OFFPC_ITS ---
Vital Signs 12/20/24 13:20 Height 5 ft 9 in Weight 193 lb 6 oz BMI 28.6 BP 126/80 Blood Pressure Location Lt brachial Position Sitting Pulse 64 Pulse Source Pulse Oximeter Pulse Oximetry (%) 92 Oxygen Delivery Method Room Air Intake Visit Reasons: copd/hld/htn Unpaid Intern Required: No Accompanied by: Self / Same As Patient Allergies carbamazepine Allergy (Severe, Verified 12/20/24 13:46) Hives meperidine (From DEMEROL) Allergy (Unknown, Verified 12/20/24 13:46) VOMITING Penicillins (PENICILLINS) Allergy (Unknown, Verified 12/20/24 13:46) SWELLING Sulfa (Sulfonamide Antibiotics) (SULFA (SULFONAMIDE ANTIBIOTICS)) Allergy (Unknown, Verified 12/20/24 13:46) HIVES varenicline (From CHANTIX) Allergy (Unknown, Verified 12/20/24 13:46) HEADACHES lisinopril Adverse Reaction (Mild, Verified 12/20/24 13:46) Cough Medication List - Last Reconciled 12/20/24 by Zane Michaels MD albuterol sulfate 90 mcg/actuation 1 - 2 puffs inhalation Q4-6H PRN amlodipine 10 mg PO DAILY ascorbic acid (vitamin C) 500 mg PO DAILY aspirin 81 mg PO DAILY betamethasone valerate 0.1% 1 appl topical BID cholecalciferol (vitamin D3) 100 mcg PO DAILY dihydroberberine (Berberine ES-5) 1,200 mg PO DAILY lorazepam 0.5 mg PO BID PRN 28 days magnesium glycinate 120 mg PO DAILY metoprolol succinate ER 25 mg PO DAILY Tobacco use date assessed: 12/20/24 Dental Screening Dental Screen Date: 12/20/24 Did you have a dental visit in the last 12 months?: No Did you have a dental problem in the last 6 months where you did not have access to dental care?: No Was dental information given to patient?: Patient has dentist HPI copd/hld/htn HPI Details Patient comes in today for her follow up visit States that she currently feels okay She denies any headaches or dizziness Denies any chest pains, no increased shortness of breath No nausea/vomiting, no abdominal pain No change in bowel habits noted Needs a couple of her Rx refilled She had her follow up labs done last week - to discuss her results PENDING SALE TO [facility] Medical History Overweight (BMI 25.0-29.9) Primary osteoarthritis involving multiple joints Rheumatoid arthritis Smoker Anxiety Pure hypercholesterolemia COPD (chronic obstructive pulmonary disease) Non-ST elevation (NSTEMI) myocardial infarction Essential hypertension Surgical History History of superficial parotidectomy History of tubal ligation Social History Housing: House Patient Tobacco Use Status: Current everyday Tobacco user Cigarettes Per Day: 8 Years Smoked: 30+ e-Cigarette/Vaping Use: Never Used service: No Current occupational status: disabled Current occupation: right hand dominant Cognitive needs: No Hearing needs: No Vision needs: Yes Questionnaire Thrive Questionnaire Date Thrive assessed: 06/01/24 I am a: Patient What is your living situation today?: I have a steady place to live Within the past 12 months, did the food you bought not last and you didn't have the money to get more?: Never true Within the past 12 months, did you worry whether your food would run out before you got money to buy more?: Sometimes True Do you have trouble paying for medicines?: No Do you have trouble getting transportation to medical appointments?: No Do you have trouble paying your heating and electricity bill?: No Do you have trouble taking care of your child, family member or friend?: No Do you have trouble with day-to-day activities such as bathing, preparing meals, shopping, managing finances, etc.?: Yes Are you currently unemployed and looking for a job?: I choose not to answer this question Are you interested in more education?: No Please select the resources that you would like help with: None Currently or been in a relationship where the following occur: No concerns reported THRIVE Score: 1 AUDIT C Alcohol Use Questionnaire (AUDIT-C) 1. How often do you have a drink containing alcohol?: Never 3. How often do you have six or more drinks on one occasion?: Never Total Score: 0 Score Reviewed/Action Taken: Yes SUSANA-7 AMB Questionnaire SUSANA-7 Date SUSANA - 7 assessed: 08/30/24 Source: Developed by Drs. Xu LHeather Jimenez, Rio Sun and colleagues, with an educational naisa from [employer]. Review of Systems Const Denies chills, Denies fatigue, Denies fever(s) and Denies headache(s) ENT Denies dysphagia, Denies dizziness, Denies otalgia, Denies headache(s), Denies neck pain, Denies odynophagia and Denies sore throat Card Denies chest pain, Denies palpitations and Denies dyspnea Resp Denies chest congestion, Denies cough and Denies dyspnea GI Denies abdominal pain, Denies constipation, Denies dysphagia, Denies heartburn, Denies diarrhea, Denies nausea, Denies odynophagia and Denies vomiting Denies difficulty voiding, Denies nocturia and Denies dysuria Musc Reports back pain (over the lower back), Reports arthralgias (involving multiple joints) and Denies neck pain Skin/Breast Denies rash Neuro Denies dizziness and Denies headache(s) Psych Reports anxiety Endo Denies fatigue and Denies palpitations Physical exam (Primary Care) Vital Signs: Last Vital Signs Pulse 64 12/20/24 13:20 BP 126/80 12/20/24 13:20 Pulse Ox 92 12/20/24 13:20 Oxygen Delivery Method Room Air 12/20/24 13:20 BMI result Body Mass Index 28.6 Tobacco/Smoking Status: Tobacco use Status Tobacco use date assessed 12/20/24 12/20/24 13:25 Patient Tobacco Use Status Current everyday Tobacco 12/20/24 13:25 e-Cigarette/Vaping Use Never Used 12/20/24 13:25 Thrive Assessment: Date of Thrive Assessment Date Thrive assessed 06/01/24 12/20/24 13:25 Currently or been in a relationship where the following occur: No concerns reported Const General: no acute distress and alert HENMT Ears: TM's normal bilaterally and EAC's normal Throat: Yes posterior oropharynx normal and Yes tonsils normal (no TP congestion) Neck Neck: Yes supple and No lymphadenopathy Thyroid: Thyroid normal Resp Auscultation: clear to auscultation bilaterally, no rales and no wheezes Cardio Rate: regular rate Rhythm: regular rhythm Heart sounds: no murmurs GI Palpation (GI): Soft to palpation and nontender Auscultation: normal bowel sounds General: Yes no CVA tenderness Back/Spine/Pelvis Back: no CVA tenderness Thoracic/Lumbar Spine: lumbar spinal tenderness Skin Rashes: no rashes Extrem General: Yes no clubbing, cyanosis or edema Results Reviewed Results Reviewed: Laboratory Tests 08/23/24 12/15/24 12/15/24 06:50 07:27 07:31 WBC 7.3 Hgb 13.5 MCV 88.5 Plt Count 180 Sodium 140 Potassium 4.9 Creatinine 0.64 Estimated GFR > 60 Fasting Glucose 105 H Hemoglobin A1c % 5.6 Calcium 9.4 AST 24 ALT 17 Triglycerides 129 130 Cholesterol 231 H 234 H LDL Cholesterol, Calc 156 H 160 H HDL Cholesterol 50 48 25-OH Vitamin D Total 129.0 TSH 1.68 Ur Specific [place] 1.010 Urine Protein Negative Urine Glucose (UA) Negative Urine Blood Negative Urine Nitrite Negative Ur Leukocyte Esterase Negative Coding Level of Care Code Est Pt Level 4 (85903) Diagnoses Essential hypertension I10 Pure hypercholesterolemia E78.00 Non-ST elevation (NSTEMI) myocardial infarction I21.4 Chronic obstructive pulmonary disease, unspecified COPD type J44.9 COPD type: unspecified COPD Primary osteoarthritis involving multiple joints M15.0 Rheumatoid arthritis involving hand, unspecified laterality, unspecified whether rheumatoid factor present M06.9 Laterality: unspecified laterality Rheumatoid arthritis location: hand Rheumatoid factor presence: unspecified presence Anxiety F41.9 Smoker F17.200 Overweight (BMI 25.0-29.9) E66.3 Assessment & Plan Assessment & Plan (1) Essential hypertension: Code(s): I10 - Essential (primary) hypertension Category: Medical Plan: Reinforced low sodium diet - goal is systolic BP of 120 to 130 mm or less Continue Amlodipine 10 mg QD and Metoprolol ER 25 mg QD (2) Pure hypercholesterolemia: Code(s): E78.00 - Pure hypercholesterolemia, unspecified Category: Medical Plan: Results of her labs done last week reviewed and discussed with patient - she is advised that her cholesterol levels are still elevated with her LDL cholesterol at 160 mg/dL Patient has declined starting on cholesterol-lowering medications in the past and continues to do so - states that she has read a lot of negative things about the cholesterol-lowering medications and does not wish to take any of these She is currently taking OTC Berberine ES 1200 mg daily to help lower her cholesterol levels Reinforced low-cholesterol diet Will recheck her labs and fasting lipids in 4 months for follow-up (3) Non-ST elevation (NSTEMI) myocardial infarction: Code(s): I21.4 - Non-ST elevation (NSTEMI) myocardial infarction Category: Medical Plan: S/P NSTEMI back in March 2024 but coronary angiography done revealed NO significant coronary artery disease except for 30% stenosis of the mid-LAD Continue Aspirin 81 mg QD and Metoprolol ER 25 mg QD Patient has declined being started on cholesterol-lowering medications Follow up with cardiology as scheduled - patient sees Dr. Fraser (4) COPD (chronic obstructive pulmonary disease): Code(s): J44.9 - Chronic obstructive pulmonary disease, unspecified Category: Medical Qualifiers: COPD type: unspecified COPD Qualified Code(s): J44.9 - Chronic obstructive pulmonary disease, unspecified Plan: Patient has Breo Ellipta 100-25 mcg at home but does not use it unless she has to States that she has only been using her Albuterol HFA 1 to 2 inhalations every 6 hours as needed or Duoneb via her nebulizer PRN lately She has seen pulmonary for follow up of her COPD previously but not in the past couple of years - will try referring her to [facility] for follow up and management of her COPD (5) Primary osteoarthritis involving multiple joints: Code(s): M15.0 - Primary generalized (osteo)arthritis Category: Medical Plan: Patient reports that she has osteoarthritis of multiple joints, including her hips, knees and lower back States that she takes only OTC Tylenol nowadays when needed (6) Rheumatoid arthritis: Code(s): M06.9 - Rheumatoid arthritis, unspecified Category: Medical Qualifiers: Laterality: unspecified laterality Rheumatoid arthritis location: hand Rheumatoid factor presence: unspecified presence Qualified Code(s): M06.9 - Rheumatoid arthritis, unspecified Plan: She reports (+) Hx of rheumatoid arthritis and recalls being on treatment for her RA in the past but has not been on any medications for the past couple of years now She sees Dr. Patrick at [facility] for rheumatology follow up regularly (7) Anxiety: Code(s): F41.9 - Anxiety disorder, unspecified Category: Medical Plan: Continue Lorazepam 0.5 mg BID PRN - Rx refilled today Patient states that she has been splitting her tablets in half lately and takes them only as needed and not BID regularly lately (8) Smoker: Code(s): F17.200 - Nicotine dependence, unspecified, uncomplicated Category: Social Hx Plan: Patient is counseled again on complete smoking cessation - states that she has been actively working on quitting since her SC back in March 2024 States that she used to smoke 1.5 packs a day and is now down to about 8 cigarettes a day (9) Overweight (BMI 25.0-29.9): Code(s): E66.3 - Overweight Category: Medical Plan: Reinforced diet; exercise and weight loss are not practical at this time due to her physical issues and comorbidities Plan Follow up in 4 months Orders: Orders Complete Blood Count Auto Diff 4 Months D64.9 - Anemia, unspecified UA CC w/rflx Micro + Cult 4 Months R30.0 - Dysuria Vitamin D 25-OH Total 4 Months E55.9 - Vitamin D deficiency, unspecified Comprehensive [place]. Panel Fast 4 Months E78.00 - Pure hypercholesterolemia, unspecified Lipid Panel 4 Months E78.00 - Pure hypercholesterolemia, unspecified TSH reflex Free T4 4 Months E78.00 - Pure hypercholesterolemia, unspecified Referrals Pulmonology Referral J44.9 - Chronic obstructive pulmonary disease, unspec ified Medications: New albuterol sulfate 2.5 mg (3 mL) inhalation QID PRN 180 mL 3RF shortness of moisés th or wheezing 30 days J44.9 - Chronic obstructive pulmonary disease, unspecified Changed From amlodipine 10 mg PO DAILY 30 tabs 3RF To amlodipine 10 mg PO DAILY 90 tabs 1RF 90 days From metoprolol succinate ER 25 mg PO DAILY 90 tabs 3RF To metoprolol succinate ER 25 mg PO DAILY 90 tabs 3RF 90 days
--- OUTSIDE RECORDS SUMMARY | 2024-12-20 16:46 | XMS_ITS | Encounter Summary ---
Author Organization [facility] Address [address] [place] [phone] Phone Care Team Providers Care Merchandise Buyer Name Role Phone Anne-Marie Newsome MD Primary Care Provider [phone] Anne-Marie Newsome MD Unavailable [phone] Anne-Marie Newsome MD Unavailable [phone] Anne-Marie Newsome MD Unavailable [phone] Encounter Details Date Type Department Care Team (Late st Contact Info) Description 07/15/2017 Procedure Pass [facility], Ct Scan - [address] [address] Social History Tobacco Use Types Packs/Day Years [...] on filedocumented in this encounter Care Teams Merchandise Buyer Relationship Specialty Start Date End Date Anne-Marie Newsome MD [email or web address] PCP - General Family Medicine 05/14/17 Anne-Marie Newsome MD [address] [place] [phone] [email or web address] Insurance Assigned Provider 07/03/17 07/09/18 Anne-Marie Newsome MD [address] [place] [address] [email or web address] Insurance Assigned Provider 09/13/21 08/22/22 Anne-Marie Newsome MD [address] [place] [address] [email or web address] Insurance Assigned Provider 10/10/22 12/12/22 documented as of this encounter Additional Source Comments The information contained in this document represents components of the legal health record. It is not the complete legal health record.[facility]
--- OUTSIDE RECORDS SUMMARY | 2024-12-20 16:46 | XMS_ITS | Clinical Summary ---
Author Organization [facility] Address [address] [place] [address] Phone Care Team Providers Care Tugboat Dispatcher Name Role Phone Anne-Marie Newsome MD Primary [...] exercises and consider warm pool therapy at [facility] versus [facility] in [place], [place]. If symptoms do not respond to above measures may need to consider local steroid injection ( I am fearful of needles ) Assessment & Plan (10/22/2022 10:46 AM EDT): Inflammatory polyarthritis mostly [id number] haneds. Has been on Plaquenil with partial [...] exercises and consider warm pool therapy at [facility] versus [facility] in [place], [place]. If symptoms do not respond to [...] exercises and consider warm pool therapy at [facility] versus [facility] in [place], [place]. If symptoms do not respond to [...] exercises and consider warm pool therapy at [facility]. If symptoms do not respond to above [...] AM EST): Continue as prescribed. Follow-up with form tamper operator every 12 months as requested Daily sun [...] exercises and consider warm pool therapy at [facility] versus [facility] in [place], [place]. If symptoms do not respond to [...] exercises and consider warm pool therapy at [facility] versus [facility] in [place]. If symptoms do not respond to [...] exercises and consider warm pool therapy at [facility] versus [facility] in [place], [place]. If symptoms do not respond to [...] exercises and consider warm pool therapy at [facility] versus [facility] in [place], [place]. If symptoms do not respond to [...] name of research coordinator: Lou Medrano at [phone] for quit smoking study offered by [facility]. Assessment & Plan (02/06/2022 10:48 AM EDT): [...] name of research coordinator: Lou Medrano at [phone] for quit smoking study offered by [facility]. Assessment & Plan (10/24/2021 11:57 AM EDT): [...] name of research coordinator: Lou Medrano at [phone] for quit smoking study offered by [facility]. Assessment & Plan (04/27/2021 7:41 PM EST): [...] name of research coordinator: Lou Medrano at [phone] for quit smoking study offered by [facility] of [facility]. Assessment & Plan (12/25/2020 11:01 [...] SEE NARRATIVE - 04/10/2019 3:28 [place] [address] CERTIFIED HYPERBARIC TECHNICIAN Cytology Report Patient Name: ELIDA WAGNER : 1960 (Age: 58) Sex: F Institution: [facility] Location: [facility] Date of Collection: 04/04/2019 Date of Reported: 04/10/2019 15:28 Results to: Anne-Marie Newsome MD FINAL DIAGNOSIS A. CERVICAL, LIQUID BASED SPECIMEN: SPECIMEN ADEQUACY: Satisfactory for evaluation. INTERPRETATION: NEGATIVE FOR INTRAEPITHELIAL LESION OR MALIGNANCY. ADDITIONAL INFORMATION: This specimen was prescreened using the [employer] System. Electronically Signed Out By: JEANNE [...] 52, 56, 58, 59, 66, 68) by [employer] Onclarity HR-HPV analysis. Clinical correlation is advised. This HPV test was performed at [facility], [address] [place] [address]. This test has been FDA approved for SurePath cervical cytology specimens. The accuracy and precision of this test for all other specimen sources has been verified in the Cytopathology Laboratory of the [facility] and has not been cleared or [...] Most Recently Relevant to Health Maintenance Insurance [facility] MEDICARE REPLACEMENT CARE MEDICARE REPLACEMENT CARE MEDICARE REPLACEMENT CARE MEDICARE REPLACEMENT MEDICARE REPLACEMENT MEDICARE REPLACEMENT Care Teams Tugboat Dispatcher Relationship Specialty Start Date End Date Anne-Marie Newsome MD [email or web address] PCP - General Family Medicine 05/14/17 Additional Source Comments The information contained in this document represents components of the legal health record. It is not the complete legal health record.[facility]
--- OUTSIDE RECORDS SUMMARY | 2024-12-20 16:46 | XMS_ITS | Encounter Summary ---
Author Organization [facility] Address [address] [place] [address] Phone Care Team Providers Care Water Jet Loom Fixer Name Role Phone Anne-Marie Newsome MD Primary Care Provider Anne-Marie Newsome MD Unavailable [phone] Encounter Details Date Type Department Care Team (Late st Contact Info) Description 08/26/2022 Transcribe Orders Virtual Department [address] [place] [address] Anne-Marie Newsome MD [address] [place] [address] [phone] [email or web address] Nicotine dependence, cigarettes, uncomplicated (Primary Dx) Social [...] Primary documented in this encounter Care Teams Water Jet Loom Fixer Relationship Specialty Start Date End Date Anne-Marie Newsome MD [email or web address] PCP - General Family Medicine 05/14/17 Anne-Marie Newsome MD [address] [place] [address] [email or web address] Insurance Assigned Provider 10/10/22 12/12/22 documented as of this encounter Additional Source Comments The information contained in this document represents components of the legal health record. It is not the complete legal health record.[facility]
== END 2024-12-20 14:08 | disposition home or self-care (01) ==
LOC: HO.HMCH 13:09
PROVIDERS: PCP Internal Medicine; Visit Provider Internal Medicine
DX: I10 Essential (primary) hypertension (principal); I25.2 Old myocardial infarction; J44.9 Chronic obstructive pulmonary disease, unspecified; M06.9 Rheumatoid arthritis, unspecified; E78.00 Pure hypercholesterolemia, unspecified; M15.0 Primary generalized (osteo)arthritis; F41.9 Anxiety disorder, unspecified; F17.200 Nicotine dependence, unspecified, uncomplicated; E66.3 Overweight

== ENCOUNTER 2025-04-03 10:12 | Outpatient (AMB) | payer OTHER, MEDICAID, SELFPAY ==
[2025-04-03 10:16] VITALS: BP 132/78; PULSE 64; O2SAT 94; BMI 28.8
--- NOTE | 2025-04-03 10:16 | MHC.OFFVIS ---
Vital Signs 04/03/25 10:16 Height 5 ft 9 in Weight 195 lb BMI 28.8 BP 132/78 Blood Pressure Location Rt brachial Position Sitting Pulse 64 Pulse Source Pulse Oximeter Pulse Oximetry (%) 94 Oxygen Delivery Method Room Air Intake Visit Reasons: COPD Allergies carbamazepine Allergy (Severe, Verified 04/03/25 10:21) Hives meperidine (From DEMEROL) Allergy (Unknown, Verified 04/03/25 10:21) VOMITING Penicillins (PENICILLINS) Allergy (Unknown, Verified 04/03/25 10:21) SWELLING Sulfa (Sulfonamide Antibiotics) (SULFA (SULFONAMIDE ANTIBIOTICS)) Allergy (Unknown, Verified 04/03/25 10:21) HIVES varenicline (From CHANTIX) Allergy (Unknown, Verified 04/03/25 10:21) HEADACHES lisinopril Adverse Reaction (Mild, Verified 04/03/25 10:21) Cough HPI HPI COPD: Details: 64-year-old lady, active 40+ year smoker with underlying likely COPD, though with no pulmonary function testing, previously seen at [facility] pulmonary now presents to [facility] care. Patient states that she has been using Breo, albuterol MDI/nebs with reasonable control of her symptoms, though she does not like to use Breo. She denies recent acute exacerbations. Patient denies family history of lung disease. She was employed with no exposure to industrial dusts. [facility] Medical History Overweight (BMI 25.0-29.9) Primary osteoarthritis involving multiple joints Rheumatoid arthritis Smoker Anxiety Pure hypercholesterolemia COPD (chronic obstructive pulmonary disease) Non-ST elevation (NSTEMI) myocardial infarction Essential hypertension Surgical History History of superficial parotidectomy History of tubal ligation Social History (Updated 04/03/25 @ 10:25 by KARI Faith) Housing: House Patient Tobacco Use Status: Current everyday Tobacco user Tobacco use type: Cigarette Cigarettes Per Day: 10 Years Smoked: started age 20- 1.5 PPD - currently on 10-15 cig a day e-Cigarette/Vaping Use: Never Used service: No Current occupational status: disabled Current occupation: right hand dominant Cognitive needs: No Hearing needs: No Vision needs: Yes Review of Systems Const Denies daytime sleepiness, Denies excessive sweating, Denies fatigue, Denies fever(s), Denies lethargy, Denies malaise, Denies night sweats, Denies snoring and Denies weight loss Eyes Denies blurry vision and Denies itchy eyes ENT Denies nasal congestion, Denies post nasal drip, Denies sinus pain, Denies sinus pressure and Denies other ( Thrush) Card Denies chest pain, Denies pedal edema, Denies dyspnea, Denies orthopnea and Denies paroxysmal nocturnal dyspnea Resp Denies cough, Denies hemoptysis, Denies excessive phlegm production, Denies dyspnea, Denies snoring and Denies wheezing GI Denies abdominal pain and Denies heartburn Musc Denies myalgias, Denies arthralgias and Denies joint swelling Skin/Breast Denies rash Neuro Denies memory loss and Denies seizure-like activity Psych Denies abnormal sleep pattern, Denies anxiety and Denies memory loss Endo Denies excessive sweating, Denies fatigue and Denies heat intolerance Jared/Lymph Denies easy bruising Aller/Immun Denies itchy eyes, Denies seasonal rhinorrhea and Denies wheezing Physical Exam Vital Signs: Last Vital Signs Pulse 64 04/03/25 10:16 BP 132/78 04/03/25 10:16 Pulse Ox 94 04/03/25 10:16 Oxygen Delivery Method Room Air 04/03/25 10:16 BMI result Body Mass Index 28.8 Const General: no acute distress and alert Nutritional Appearance: not obese Orientation/consciousness: Other orientation findings ( oriented) HEENT Head: Yes atraumatic Eyes General: appearance normal, both eyes and all related structures Sclerae: sclerae normal EOM: EOMs intact bilaterally Neck Neck: Yes supple Lymphatic: no lymphadenopathy noted Resp Effort & Inspection: normal respiratory effort and no use of accessory muscles Auscultation: clear to auscultation bilaterally Cardio Rate: regular rate Rhythm: regular rhythm Heart sounds: no gallops, no murmurs and no rubs Skin General skin exam: other ( warm) Extrem General: No clubbing, No cyanosis and No edema Assessment & Plan Assessment & Plan (1) COPD (chronic obstructive pulmonary disease): Code(s): J44.9 - Chronic obstructive pulmonary disease, unspecified Category: Medical Qualifiers: COPD type: unspecified COPD Qualified Code(s): J44.9 - Chronic obstructive pulmonary disease, unspecified Plan: Likely underlying COPD of unclear severity with suboptimal tolerance of Breo. Will switch Breo to Anoro. Continue albuterol MDI. Will obtain full PFT. (2) Smoker: Code(s): F17.200 - Nicotine dependence, unspecified, uncomplicated Category: Social Hx Plan: Will proceed with lung cancer screening. Orders: Orders PFT pulmonary function test Today J44.9 - Chronic obstructive pulmonary disease, unspecified Referrals Lung Cancer Screening Referral F17.200 - Nicotine dependence, unspecified, uncomplicated Medications: New umeclidinium-vilanterol 62.5-25 mcg/actuation (Anoro Ellipta) 1 inh inhalation DAILY 1 ea 6RF Refilled albuterol sulfate 90 mcg/actuation 1 - 2 puffs inhalation Q4-6H PRN 1 ea 6RF shortness of breath or wheezing Coding Level of Care Code New Pt Level 4 (93823) Diagnoses Chronic obstructive pulmonary disease, unspecified COPD type J44.9 COPD type: unspecified COPD Smoker F17.200
--- OUTSIDE RECORDS SUMMARY | 2025-04-03 13:30 | XMS_ITS | Encounter Summary ---
Author Organization [facility] Address [address] [place] [address] Phone Care Team Providers Care Base Filler Operator Name Role Phone Anne-Marie Newsome MD Primary Care Provider Anne-Marie Newsome MD Unavailable [phone] Encounter Details Date Type Department Care Team (Late st Contact Info) Description 08/26/2022 Transcribe Orders Virtual Department [address] [place] [address] Anne-Marie Newsome MD [address] [place] [address] [phone] [email or web address] Nicotine dependence, cigarettes, uncomplicated (Primary Dx) Social [...] Primary documented in this encounter Care Teams Base Filler Operator Relationship Specialty Start Date End Date Anne-Marie Newsome MD PCP - General Family Medicine 05/14/17 Anne-Marie Newsome MD [address] [place] [address] [email or web address] Insurance Assigned Provider 10/10/22 12/12/22 documented as of this encounter Additional Source Comments The information contained in this document represents components of the legal health record. It is not the complete legal health record.[facility]
--- OUTSIDE RECORDS SUMMARY | 2025-04-03 13:30 | XMS_ITS | Encounter Summary ---
Author Organization [facility] Address [address] [place] [address] Phone Care Team Providers Care Marine Scientist Name Role Phone Anne-Marie Newsome MD Primary Care Provider Anne-Marie Newsome MD Unavailable [phone] Anne-Marie Newsome MD Unavailable [phone] Anne-Marie Newsome MD Unavailable [phone] Encounter Details Date Type Department Care Team (Late st Contact Info) Description 07/15/2017 Procedure Pass [facility], Ct Scan - [address] [address] Social History Tobacco Use Types Packs/Day Years [...] on filedocumented in this encounter Care Teams Marine Scientist Relationship Specialty Start Date End Date Anne-Marie Newsome MD [email or web address] PCP - General Family Medicine 05/14/17 Anne-Marie Newsome MD [address] [place] [address] [email or web address] Insurance Assigned Provider 07/03/17 07/09/18 Anne-Marie Newsome MD [address] [place] [address] [email or web address] Insurance Assigned Provider 09/13/21 08/22/22 Anne-Marie Newsome MD [address] [place] [address] [email or web address] Insurance Assigned Provider 10/10/22 12/12/22 documented as of this encounter Additional Source Comments The information contained in this document represents components of the legal health record. It is not the complete legal health record.[facility]
--- OUTSIDE RECORDS SUMMARY | 2025-04-03 13:30 | XMS_ITS | Clinical Summary ---
Author Organization [facility] Address [address] [place] [phone] Phone Care Team Providers Care Medicare Compliance Auditor Name Role Phone Anne-Marie Newsome MD Primary [...] exercises and consider warm pool therapy at [facility] versus [facility] in [place], [place]. If symptoms do not respond to above measures may need to consider local steroid injection ( I am fearful of needles ) Assessment & Plan (10/22/2022 10:46 AM EDT): Inflammatory polyarthritis mostly [id number] haneds. Has been on Plaquenil with partial [...] exercises and consider warm pool therapy at [facility] versus [facility] in [place], [place]. If symptoms do not respond to [...] exercises and consider warm pool therapy at [facility] versus [facility] in [place], [place]. If symptoms do not respond to [...] exercises and consider warm pool therapy at [facility]. If symptoms do not respond to above [...] AM EST): Continue as prescribed. Follow-up with casting finisher every 12 months as requested Daily sun [...] exercises and consider warm pool therapy at [facility] versus [facility] in [place], [place]. If symptoms do not respond to [...] exercises and consider warm pool therapy at [facility] versus [facility] in [place]. If symptoms do not respond to [...] exercises and consider warm pool therapy at [facility] versus [facility] in [place]. If symptoms do not respond to [...] exercises and consider warm pool therapy at [facility] versus [facility] in [place], [place]. If symptoms do not respond to [...] name of research coordinator: Lou Medrano at [phone] for quit smoking study offered by [facility]. Assessment & Plan (02/06/2022 10:48 AM [...] name of research coordinator: Lou Medrano at [phone] for quit smoking study offered by [facility]. Assessment & Plan (10/24/2021 11:57 AM [...] name of research coordinator: Lou Medrano at [phone] for quit smoking study offered by [facility]. Assessment & Plan (04/27/2021 7:41 PM [...] name of research coordinator: Lou Medrano at [phone] for quit smoking study offered by [facility] of [facility]. Assessment & Plan (12/25/2020 [...] Additional history exists COVID-19 VACCINE ( - 2024- season) 2024 SCREENING FOR DIABETES 02/22/2026 02/22/2023, [...] SEE NARRATIVE - 04/10/2019 3:28 [place] [address] WOOD PATTERNMAKER APPRENTICE Cytology Report Patient Name: ELIDA WAGNER : 1960 (Age: 58) Sex: F Institution: [facility] Location: [facility] Date of Collection: 04/04/2019 Date of Reported: 04/10/2019 15:28 Results to: Anne-Marie Newsome MD FINAL DIAGNOSIS A. CERVICAL, LIQUID BASED SPECIMEN: SPECIMEN ADEQUACY: Satisfactory for evaluation. INTERPRETATION: NEGATIVE FOR INTRAEPITHELIAL LESION OR MALIGNANCY. ADDITIONAL INFORMATION: This specimen was prescreened using the [employer] System. Electronically Signed Out By: JEANNE [...] 52, 56, 58, 59, 66, 68) by [employer] Onclarity HR-HPV analysis. Clinical correlation is advised. This HPV test was performed at [facility], [address] [place] [address]. This test has been FDA approved for SurePath cervical cytology specimens. The accuracy and precision of this test for all other specimen sources has been verified in the Cytopathology Laboratory of the [facility] and has not been cleared or [...] Most Recently Relevant to Health Maintenance Insurance [employer] MEDICARE REPLACEMENT MEDICARE REPLACEMENT MEDICARE REPLACEMENT MEDICARE REPLACEMENT MEDICARE REPLAC[place] [address] [address] [place] [address] MEDICARE REPLACEMENT Care Teams Medicare Compliance Auditor Relationship Specialty Start Date End Date Anne-Marie Newsome MD [email or web address] PCP - General Family Medicine 05/14/17 Additional Source Comments The information contained in this document represents components of the legal health record. It is not the complete legal health record.[facility]
== END 2025-04-03 10:41 | disposition home or self-care (01) ==
PROVIDERS: PCP Internal Medicine; Referring Provider Internal Medicine; Visit Provider Internal Medicine Pulmonary Disease
DX: J44.9 Chronic obstructive pulmonary disease, unspecified (principal); F17.200 Nicotine dependence, unspecified, uncomplicated
CPT/HCPCS: 99204